=== PATIENT | female | born 1935 | race Caucasian/White ===

== ENCOUNTER → 2017-10-07 | Outpatient (CLI) | payer MEDICARE, BC ==
[2017-10-08 03:52] LABS: Hemoglobin A1C 7.2 % (4.0-6.0)
== END | disposition home or self-care (01) ==
LOC: MMGSC 10:40
PROVIDERS: ATTEND Family Medicine
DX: E11.9 Type 2 diabetes mellitus without complications (principal)
CPT/HCPCS: 82043; 82570; 83036

== ENCOUNTER 2019-12-03 06:13 | Day surgery (SDC) | payer MEDICARE, BC ==
[2019-12-03] MEDS ORDERED: CLINDAMYCIN 600 MG in SODIUM CHLORIDE 0.9% IRRIGATIO 250 ML IRRIGATION ONE (06:18)
[2019-12-03] MEDS ORDERED: CLINDAMYCIN 900 MG in DEXTROSE 5% IN WATER 50 ML IVPB ONE ×2 (06:18)
[2019-12-03] MEDS ORDERED: SODIUM CHLORIDE 0.9% 1,000 ML IV SCH (06:18)
[2019-12-03 07:04] VITALS: RESP 16; TEMP 97.8
[2019-12-03] MEDS ORDERED: SODIUM CHLORIDE 0.9% 1,000 ML IV ONE (07:05)
[2019-12-03] MEDS ORDERED: MIDAZOLAM 2 MG/2 ML VIAL ONE (07:24)
[2019-12-03] MEDS ORDERED: fentaNYL (PF) 50 MCG/ML 2 ML AMP ONE (07:24)
[2019-12-03] MEDS ORDERED: PROPOFOL 10 MG/ML 20 ML VIAL IV ONE (07:24)
[2019-12-03 08:03] LABS: Basophils % (A) 0 %; Eosinophils # (A) 0.1 k/uL (0-0.7); Eosinophils % (A) 1 %; HCT 41.8 % (34.0-46.0); HGB 13.9 gm/dL (11.4-16.0); Lymphocytes # (A) 2.4 k/uL (1.0-4.8); Lymphocytes % (A) 24 %; MCH 30.8 pg (25.0-35.0); MCHC 33.3 g/dL (31.0-37.0); MCV 92.6 fL (80.0-100.0); Mean Platelet Volume 7.5; Monocytes # (A) 0.6 k/uL (0-1.0); Monocytes % (A) 6 %; Neutrophils # (A) 6.5 k/uL (1.3-7.7); Neutrophils % (A) 65 %; Platelet Count 280 k/uL (150-450); RBC 4.51 m/uL (3.80-5.40); RDW 13.2 % (11.5-15.5)
[2019-12-03] MEDS ORDERED: LIDOCAINE 1% INJ 10MG/ML (20 ML MDV) SQ ONE ×2 (08:06→08:14)
[2019-12-03] MEDS ORDERED: ACETAMINOPHEN TAB 325 MG TAB PO PRN (09:10)
[2019-12-03] MEDS ORDERED: ACETAMINOPHEN IV (For NPO) 1,000 MG in EMPTY BAG 1 BAG IVPB ONE (09:10)
--- NOTE | 2019-12-03 09:37 | CE ---
CARDIAC ELECTROPHYSIOLOGY REPORT Jagruti Muse is an 84-year-old female with underlying atrial fibrillation, persistent with a biventricular ICD for cardiomyopathy and heart failure. She was referred for a biventricular ICD generator change since the device is at [facility]. Patient was brought to the EP lab in a fasting state. Written informed consent was obtained prior to the procedure. The left shoulder area was prepped and draped as per protocol and 1% lidocaine was used for local anesthesia. She has an underlying rhythm at 30 beats per minute. Intravenous antibiotics were administered, clindamycin 900 mg. An incision was made directly over the previous surgical site and carried down carefully to the generator. The generator was explanted. The partial capsulectomy was performed. Hemostasis was assured with Aquamantys device. The new generator was implanted. The leads were interrogated and the device was reprogrammed. The old generator that was removed was a [employer] [id number] Protecta XT, serial #[id number]. The new device implanted was Medtronic model number [id number] and serial #[id number]. The P waves were 1 mV. Pacing impedance 451 ohms. Patient was in atrial fibrillation. The RV sensing was at 30 beats a minute. R-waves were 5 mV. Pacing impedance 323 ohms. High-voltage impedance 79 ohms. Pacing threshold 1 V at 0.4 milliseconds. LV pacing impedance was 456 ohms, pacing threshold 1.75 V at 0.4 milliseconds. Prior to the procedure, cinefluoroscopy of the leads was performed and the RV ICD lead was a single coil lead implanted in the low septum, right atrial lead in the right atrial appendage and the LV Medtronic lead in the anterolateral LV vein. No fractures or breaks were noted. MMODL / IJN: [id number] /
--- NOTE | 2019-12-03 09:37 | DS ---
DISCHARGE SUMMARY Jagruti Muse underwent a biventricular ICD generator change. She will be discharged home today if she is hemodynamically stable in about 6 to 8 hours after her second dose of IV clindamycin. She will follow up in the device clinic in 5 days. There will be no changes in her medications and she will see Dr. Milian as previously scheduled. NAOMI / CARMELO: [id number] /
[2019-12-03] MEDS ORDERED: CLINDAMYCIN 900 MG in DEXTROSE 5% IN WATER 50 ML IVPB SCH ×2 (14:00)
[2019-12-03 14:18] VITALS: BP 122/71; PULSE 61
== END 2019-12-03 15:03 | disposition home or self-care (01) ==
LOC: CATHEP 06:13
PROVIDERS: ATTEND Internal Medicine Clinical Cardiac Electrophysiology
DX: Z45.010 Encounter for checking and testing of cardiac pacemaker pulse generator [battery] (principal); I48.19 Other persistent atrial fibrillation; I42.9 Cardiomyopathy, unspecified; I49.3 Ventricular premature depolarization; I11.0 Hypertensive heart disease with heart failure; I50.9 Heart failure, unspecified; E78.2 Mixed hyperlipidemia; E11.39 Type 2 diabetes mellitus with other diabetic ophthalmic complication; H42 Glaucoma in diseases classified elsewhere; Z88.0 Allergy status to penicillin; Z79.01 Long term (current) use of anticoagulants; Z79.899 Other long term (current) drug therapy
CPT/HCPCS: 85025; 33264; J2001; J0131

== ENCOUNTER 2022-06-26 16:39 | Emergency (ER) | payer OTHER ==
--- NOTE | 2022-06-26 17:44 | ED ---
General Adult HPI - General Chief complaint: Recheck/Abnormal Lab/Rx Stated complaint: Possible UTI Time Seen by Provider: 06/26/22 17:03 Source: patient, RN notes reviewed, old records reviewed Mode of arrival: EMS Limitations: no limitations - History of Present Illness Initial comments: 86-year-old female, alert and oriented, presents to the emergency room by EMS from [facility] for altered mental status and possible urinary tract infection. Patient denies any dysuria. Denies any pain or discomfort. No nausea vomiting diarrhea or fevers. States last normal bowel movement was here in the emergency room upon arrival. States did have breakfast and lunch today. Patient does not know why they sent her to the emergency room. Denies any complaints. -: days(s) (1) Severity scale (1-10): 0 Associated Symptoms: denies other symptoms Treatments Prior to Arrival: none - Related Data Home Medications Medication Instructions Recorded Confirmed Atorvastatin [Lipitor] 20 mg PO HS 05/28/14 12/03/19 Metoprolol Succinate [Toprol XL] 25 mg PO DAILY 05/28/14 12/03/19 Spironolactone 12.5 mg PO DAILY 05/28/14 12/03/19 Travoprost [Travatan Z 0.004%] 1 drop BOTH EYES HS 05/28/14 12/03/19 Donepezil [Aricept] 5 mg PO DAILY@1900 11/29/19 12/03/19 Previous Rx's Medication Instructions Recorded Apixaban [Eliquis] 2.5 mg PO BID@0700,1900 #1 tab 06/07/14 Furosemide [Lasix] 40 mg PO DAILY #1 tab 06/07/14 lisinopriL [Zestril] 2.5 mg PO DAILY #30 tab 06/07/14 Cephalexin [Keflex] 500 mg PO BID 7 Days #14 cap 06/26/22 Allergies Allergy/AdvReac Type Severity Reaction Status Date / Time Penicillins Allergy Rash/Hives Verified 06/26/22 16:43 Review of Systems ROS Statement: Those systems with pertinent positive or pertinent negative responses have been documented in the HPI. ROS Other: All systems not noted in ROS Statement are negative. Past Medical History Past Medical History: Atrial Fibrillation, Cancer, Heart Failure, Diabetes Mellitus, Eye Disorder, Hyperlipidemia, Hypertension Additional Past Medical History / Comment(s): GLAUCOMA, DIET CONTROLLED DIABETIC,.ARTHRITIS, HX BREAST CANCER WITH RADIATION (2010), SEE DR CARTY H & P., SHORT TERM MEMORY LOSS., WEARS DEPENDS. History of Any Multi-Drug Resistant Organisms: None Reported Past Surgical History: AICD, Heart Catheterization, Hysterectomy, Pacemaker Additional Past Surgical History / Comment(s): LT CATARACT REMOVED, LUMPECTOMY RT BREAST, THORACENTESIS & PERICARDIAL WINDOW. Past Anesthesia/Blood Transfusion Reactions: No Reported Reaction Type of Cardiac Device: Permanent Pacemaker, AICD Device Placement Date:: 10-08-2013 Past Psychological History: No Psychological Hx Reported Smoking Status: Never smoker Past Alcohol Use History: Daily Past Drug Use History: None Reported - Past Family History Father Additional Family Medical History / Comment(s): IN HIS 70'S FROM A STROKE Mother Family Medical History: CVA/TIA, Diabetes Mellitus Additional Family Medical History / Comment(s): IN HER 80'S STROKE/ COMPICATIONS FROM DIABETES General Exam Limitations: no limitations General appearance: alert, in no apparent distress Head exam: Present: atraumatic, normocephalic Eye exam: Absent: scleral icterus, conjunctival injection ENT exam: Present: mucous membranes moist Neck exam: Present: normal inspection. Absent: tenderness, meningismus, lymphadenopathy Respiratory exam: Present: normal lung sounds bilaterally. Absent: respiratory distress, wheezes, rales, rhonchi, stridor, chest wall tenderness, accessory muscle use Cardiovascular Exam: Present: regular rate GI/Abdominal exam: Present: soft. Absent: distended, tenderness, guarding, rebound, rigid Extremities exam: Present: full ROM, normal capillary refill, pedal edema (Trace bilateral). Absent: tenderness, calf tenderness Back exam: Present: normal inspection. Absent: tenderness, CVA tenderness (R), CVA tenderness (L), paraspinal tenderness, vertebral tenderness, rash noted Neurological exam: Present: alert, oriented X3, normal gait Psychiatric exam: Present: normal affect, normal mood Skin exam: Present: warm, dry, normal color. Absent: cyanosis, diaphoretic, pallor Course Vital Signs 06/26/22 06/26/22 16:42 22:12 Temperature 98 F 97.5 F L Pulse Rate 66 68 Respiratory 20 19 Rate Blood Pressure 149/72 124/77 O2 Sat by Pulse 99 97 Oximetry EKG Findings - MA, Pacemaker, Normal: Pacemaker: ventricular pacing w/capture (except when refractory) (Ventricular rate 71, QRS 0.1 0.2, QTC 0.468) Medical Decision Making - Medical Decision Making Patient was sent by care home for evaluation for possible UTI. Elevated creatinine 1.23 consistent with previous readings of September 10 when it was 1.3. Cloudy urine positive for nitrites, 172 white blood cells, and many bacteria. WBC count 14.1. Patient is afebrile, vital signs are stable. She has no complaints and wants to go home. Patient was given a gram of Rocephin. Discharged home with Keflex. Directed to follow up with primary care doctor on Tuesday. Case discussed with Dr Strickland - Lab Data Result diagrams: 06/26/22 17:38 06/26/22 17:38 Lab Results 06/26/22 06/26/22 06/26/22 Range/Units 17:38 17:38 17:38 WBC 14.1 H (3.8-10.6) k/uL RBC 4.23 (3.80-5.40) m/uL Hgb 13.4 (11.4-16.0) gm/dL Hct 39.7 (34.0-46.0) % MCV 94.0 (80.0-100.0) fL MCH 31.6 (25.0-35.0) pg MCHC 33.7 (31.0-37.0) g/dL RDW 13.6 (11.5-15.5) % Plt Count 306 (150-450) k/uL MPV 7.5 Neutrophils % 68 % Lymphocytes % 22 % Monocytes % 6 % Eosinophils % 1 % Basophils % 1 % Neutrophils # 9.6 H (1.3-7.7) k/uL Lymphocytes # 3.1 (1.0-4.8) k/uL Monocytes # 0.8 (0-1.0) k/uL Eosinophils # 0.1 (0-0.7) k/uL Basophils # 0.1 (0-0.2) k/uL PT 10.0 (9.0-12.0) sec INR 0.9 (<1.2) APTT 22.8 (22.0-30.0) sec Sodium (137-145) mmol/L Potassium (3.5-5.1) mmol/L Chloride (98-107) mmol/L Carbon Dioxide (22-30) mmol/L Anion Gap mmol/L BUN (7-17) mg/dL Creatinine (0.52-1.04) mg/dL Est GFR (CKD-EPI)AfAm (>60 ml/min/1.73 sqM) Est GFR (CKD-EPI)NonAf (>60 ml/min/1.73 sqM) Glucose (74-99) mg/dL Calcium (8.4-10.2) mg/dL Total Bilirubin (0.2-1.3) mg/dL AST (14-36) U/L ALT (4-34) U/L Alkaline Phosphatase (38-126) U/L Troponin I (0.000-0.034) ng/mL Total Protein (6.3-8.2) g/dL Albumin (3.5-5.0) g/dL Urine Color Light Yellow Urine Appearance Cloudy H (Clear) Urine pH 5.5 (5.0-8.0) Ur Specific [place] 1.010 (1.001-1.035) Urine Protein Negative (Negative) Urine Glucose (UA) Negative (Negative) Urine Ketones Negative (Negative) Urine Blood Negative (Negative) Urine Nitrite Positive H (Negative) Urine Bilirubin Negative (Negative) Urine Urobilinogen <2.0 (<2.0) mg/dL Ur Leukocyte Esterase Large H (Negative) Urine RBC 1 (0-5) /hpf Urine WBC 172 H (0-5) /hpf Urine WBC Clumps Moderate H (None) /hpf Ur Squamous Epith Cells <1 (0-4) /hpf Urine Bacteria Many H (None) /hpf Urine Mucus Rare H (None) /hpf 06/26/22 06/26/22 Range/Units 17:38 17:38 WBC (3.8-10.6) k/uL RBC (3.80-5.40) m/uL Hgb (11.4-16.0) gm/dL Hct (34.0-46.0) % MCV (80.0-100.0) fL MCH (25.0-35.0) pg MCHC (31.0-37.0) g/dL RDW (11.5-15.5) % Plt Count (150-450) k/uL MPV Neutrophils % % Lymphocytes % % Monocytes % % Eosinophils % % Basophils % % Neutrophils # (1.3-7.7) k/uL Lymphocytes # (1.0-4.8) k/uL Monocytes # (0-1.0) k/uL Eosinophils # (0-0.7) k/uL Basophils # (0-0.2) k/uL PT (9.0-12.0) sec INR (<1.2) APTT (22.0-30.0) sec Sodium 137 (137-145) mmol/L Potassium 3.5 (3.5-5.1) mmol/L Chloride 99 (98-107) mmol/L Carbon Dioxide 23 (22-30) mmol/L Anion Gap 15 mmol/L BUN 28 H (7-17) mg/dL Creatinine 1.23 H (0.52-1.04) mg/dL Est GFR (CKD-EPI)AfAm 46 (>60 ml/min/1.73 sqM) Est GFR (CKD-EPI)NonAf 40 (>60 ml/min/1.73 sqM) Glucose 116 H (74-99) mg/dL Calcium 8.8 (8.4-10.2) mg/dL Total Bilirubin 0.7 (0.2-1.3) mg/dL AST 33 (14-36) U/L ALT 25 (4-34) U/L Alkaline Phosphatase 87 (38-126) U/L Troponin I 0.021 (0.000-0.034) ng/mL Total Protein 6.6 (6.3-8.2) g/dL Albumin 3.7 (3.5-5.0) g/dL Urine Color Urine Appearance (Clear) Urine pH (5.0-8.0) Ur Specific [place] (1.001-1.035) Urine Protein (Negative) Urine Glucose (UA) (Negative) Urine Ketones (Negative) Urine Blood (Negative) Urine Nitrite (Negative) Urine Bilirubin (Negative) Urine Urobilinogen (<2.0) mg/dL Ur Leukocyte Esterase (Negative) Urine RBC (0-5) /hpf Urine WBC (0-5) /hpf Urine WBC Clumps (None) /hpf Ur Squamous Epith Cells (0-4) /hpf Urine Bacteria (None) /hpf Urine Mucus (None) /hpf Disposition Clinical Impression: UTI (urinary tract infection) Disposition: HOME SELF-CARE Condition: Good Instructions (If sedation given, give patient instructions): Urinary Tract Infection in Women (ED) Additional Instructions: Take antibiotics as prescribed. Increase your fluid intake. Follow-up with the primary care doctor on Tuesday and return to the emergency room with any new or concerning symptoms including fevers, back pain, or persistent nausea and vomiting. Prescriptions: Cephalexin [Keflex] 500 mg PO BID 7 Days #14 cap Is patient prescribed a controlled substance at d/c from ED?: No Referrals: None,Stated [Primary Care Provider] - 1-2 days Time of Disposition: 20:18
[2022-06-26 17:49] LABS: Basophils # (A) 0.1 k/uL (0-0.2); Basophils % (A) 1 %; Eosinophils # (A) 0.1 k/uL (0-0.7); Eosinophils % (A) 1 %; HCT 39.7 % (34.0-46.0); HGB 13.4 gm/dL (11.4-16.0); Lymphocytes # (A) 3.1 k/uL (1.0-4.8); Lymphocytes % (A) 22 %; MCH 31.6 pg (25.0-35.0); MCHC 33.7 g/dL (31.0-37.0); Mean Platelet Volume 7.5; Monocytes # (A) 0.8 k/uL (0-1.0); Monocytes % (A) 6 %; Neutrophils # (A) 9.6 k/uL (1.3-7.7); Neutrophils % (A) 68 %; Platelet Count 306 k/uL (150-450); RBC 4.23 m/uL (3.80-5.40); RDW 13.6 % (11.5-15.5); WBC 14.1 k/uL (3.8-10.6)
[2022-06-26 17:55] LABS: INR 0.9 (<1.2); Partial Thromboplastin Time 22.8 sec (22.0-30.0)
--- NOTE | 2022-06-26 17:57 | XR ---
EXAMINATION TYPE: XR chest 2V DATE OF EXAM: 06/26/2022 COMPARISON: 06/07/2014 HISTORY: Altered mental status TECHNIQUE: 2 views FINDINGS: Heart is enlarged. No heart failure. There is left axillary pacemaker. No pleural effusion. Bony thorax is intact. IMPRESSION: Moderate cardiomegaly. There is clearing of the pleural fluid and heart failure compared to old exams
[2022-06-26 17:59] LABS: Albumin 3.7 g/dL (3.5-5.0); Calcium 8.8 mg/dL (8.4-10.2); Potassium 3.5 mmol/L (3.5-5.1); Total Bilirubin 0.7 mg/dL (0.2-1.3); Total Protein 6.6 g/dL (6.3-8.2)
[2022-06-26 19:40] LABS: Appearance,Urine Cloudy (Clear); Bacteria,Urine Many /hpf; Bilirubin,Urine Negative (Negative); Blood,Urine Negative (Negative); Color,Urine Light Yellow; Glucose,Urine (UA) Negative (Negative); Ketones,Urine Negative (Negative); Leukocyte Esterase,Urine Large (Negative); Mucus,Urine Rare /hpf; Nitrite,Urine Positive (Negative); PH, Urine 5.5 (5.0-8.0); Protein,Urine Negative (Negative); RBC,Urine 1 /hpf (0-5); Squamous Epithelial Cell,Urine <1 /hpf (0-4); Urobilinogen,Urine <2.0 mg/dL (<2.0); WBC,Urine 172 /hpf (0-5)
[2022-06-26] MEDS ORDERED: cefTRIAXone IN SWFI 1,000 MG/10 ML SYRINGE IVP STA (20:10)
[2022-06-26 22:13] VITALS: BP 124/77; PULSE 68; RESP 19; TEMP 97.5
== END 2022-06-26 22:00 | disposition home or self-care (01) ==
LOC: EC 16:39
DX: N39.0 Urinary tract infection, site not specified (principal); I48.91 Unspecified atrial fibrillation; E11.9 Type 2 diabetes mellitus without complications; I10 Essential (primary) hypertension; E78.5 Hyperlipidemia, unspecified; Z88.0 Allergy status to penicillin; Z79.899 Other long term (current) drug therapy; Z79.83 Long term (current) use of bisphosphonates
CPT/HCPCS: 36415; 93005; 80053; 84484; 85025; 85610; 85730; 81001; 87086; 71046; 99285; 96374; J0696; 87077; 87186

== ENCOUNTER 2022-08-12 12:20 | Observation (INO) | payer OTHER ==
[2022-08-12 12:33] VITALS: TEMP 97.8
[2022-08-12] MEDS ORDERED: SODIUM CHLORIDE 0.9% 500 ML 500 ML IV STA (12:42)
[2022-08-12 13:09] LABS: Basophils # (A) 0.1 k/uL (0-0.2); Basophils % (A) 1 %; Eosinophils % (A) 0 %; HCT 40.7 % (34.0-46.0); HGB 13.5 gm/dL (11.4-16.0); Lymphocytes # (A) 0.9 k/uL (1.0-4.8); Lymphocytes % (A) 10 %; MCH 31.1 pg (25.0-35.0); MCV 94.1 fL (80.0-100.0); Mean Platelet Volume 7.3; Monocytes # (A) 0.6 k/uL (0-1.0); Monocytes % (A) 7 %; Neutrophils # (A) 7.4 k/uL (1.3-7.7); Neutrophils % (A) 80 %; Platelet Count 260 k/uL (150-450); RBC 4.33 m/uL (3.80-5.40); RDW 13.3 % (11.5-15.5); WBC 9.2 k/uL (3.8-10.6)
--- NOTE | 2022-08-12 13:14 | XR ---
EXAMINATION TYPE: XR chest 2V DATE OF EXAM: 08/12/2022 COMPARISON: 06/26/2022 TECHNIQUE: PA and lateral views submitted. HISTORY: Cough FINDINGS: The lungs are clear and there is no pneumothorax, pleural effusion, or focal pneumonia. Heart is en larged and there is a cardiac device. Atherosclerotic changes aorta. Arthropathy of the shoulders. Pr ominence of right paratracheal stripe stable. Hypertrophic degenerative change of the spine. IMPRESSION: 1. No acute process. There is prominence of the right paratracheal stripe which could be associated w ith enlarged thyroid or adenopathy. However, this is stable dating back to prior exam of 06/06/2014 an d likely is related to curvature of the spine and superimposed structures.
[2022-08-12 13:23] LABS: Albumin 3.7 g/dL (3.5-5.0); Calcium 8.7 mg/dL (8.4-10.2); Magnesium 1.7 mg/dL (1.6-2.3); Partial Thromboplastin Time 24.3 sec (22.0-30.0); Potassium 3.5 mmol/L (3.5-5.1); Prothrombin Time 10.3 sec (9.0-12.0); Total Bilirubin 0.5 mg/dL (0.2-1.3); Total Protein 6.7 g/dL (6.3-8.2)
--- NOTE | 2022-08-12 14:00 | ED ---
General Adult HPI - General Chief complaint: Shortness of Breath Stated complaint: elle Time Seen by Provider: 08/12/22 12:40 Source: patient, EMS, RN notes reviewed, old records reviewed Mode of arrival: EMS Limitations: no limitations - History of Present Illness Initial comments: This is an 86-year-old female presents emergency Department complaining of cough and shortness of breath since yesterday. Patient lives in assisted living facility and someone took pulse oxing thought it was low decided to send the emergency department. Patient has had a COVID vaccine patient also has had influenza vaccine. Patient states she has not had any fever chills. Patient denies any chest pain or palpitations. Patient denies any headache patient denies numbness weakness. Patient denies abdominal pain patient denies nausea vomiting diarrhea. Patient's only complaint is cough and shortness of breath. Patient denies any swelling to the legs or calf tenderness. Has a distant history of having congestive heart failure. - Related Data Home Medications Medication Instructions Recorded Confirmed Metoprolol Succinate [Toprol XL] 25 mg PO DAILY 05/28/14 08/12/22 Donepezil [Aricept] 5 mg PO DAILY 11/29/19 08/12/22 Apixaban [Eliquis] 2.5 mg PO BID 08/12/22 08/12/22 Bismuth Subsalicylate 262 mg PO QID PRN 08/12/22 08/12/22 [Pepto-Bismol] Glimepiride [Amaryl] 2 mg PO AC-BRKFST 08/12/22 08/12/22 Sulfamethoxazole/Trimethoprim 1 tab PO BID 08/12/22 08/12/22 [Bactrim DS 800-160 mg] Previous Rx's Medication Instructions Recorded Furosemide [Lasix] 40 mg PO DAILY #1 tab 06/07/14 lisinopriL [Zestril] 2.5 mg PO DAILY #30 tab 06/07/14 Allergies Allergy/AdvReac Type Severity Reaction Status Date / Time Penicillins Allergy Rash/Hives Verified 08/12/22 15:12 Review of Systems ROS Statement: Those systems with pertinent positive or pertinent negative responses have been documented in the HPI. ROS Other: All systems not noted in ROS Statement are negative. Past Medical History Past Medical History: Atrial Fibrillation, Cancer, Heart Failure, Diabetes Mellitus, Eye Disorder, Hyperlipidemia, Hypertension Additional Past Medical History / Comment(s): GLAUCOMA, DIET CONTROLLED DIABETIC,.ARTHRITIS, HX BREAST CANCER WITH RADIATION (2010), SEE DR CARTY H & P., SHORT TERM MEMORY LOSS., WEARS DEPENDS. History of Any Multi-Drug Resistant Organisms: None Reported Past Surgical History: AICD, Heart Catheterization, Hysterectomy, Pacemaker Additional Past Surgical History / Comment(s): LT CATARACT REMOVED, LUMPECTOMY RT BREAST, THORACENTESIS & PERICARDIAL WINDOW. Past Anesthesia/Blood Transfusion Reactions: No Reported Reaction Type of Cardiac Device: Permanent Pacemaker, AICD Device Placement Date:: 10-08-2013 Past Psychological History: No Psychological Hx Reported Smoking Status: Never smoker Past Alcohol Use History: Daily Past Drug Use History: None Reported - Past Family History Father Additional Family Medical History / Comment(s): IN HIS 70'S FROM A STROKE Mother Family Medical History: CVA/TIA, Diabetes Mellitus Additional Family Medical History / Comment(s): IN HER 80'S STROKE/ COMPICATIONS FROM DIABETES General Exam - General Exam Comments Initial Comments: GENERAL: Patient is well-developed and well-nourished. Patient is nontoxic and well- hydrated and is in mild distress. ENT: Neck is soft and supple. No significant lymphadenopathy is noted. Oropharynx is clear. Moist mucous membranes. Neck has full range of motion without eliciting any pain. EYES: The sclera were anicteric and conjunctiva were pink and moist. Extraocular movements were intact and pupils were equal round and reactive to light. Eyelids were unremarkable. PULMONARY: Patient has some expiratory wheezing throughout and some crackles in the bases CARDIOVASCULAR: There is a regular rate and rhythm without any murmurs gallops or rubs. ABDOMEN: Soft and nontender with normal bowel sounds. SKIN: Skin is clear with no lesions or rashes and otherwise unremarkable. NEUROLOGIC: Patient is alert and oriented x3. Cranial nerves II through XII are grossly intact. Motor and sensory are also intact. Normal speech, volume and content. Symmetrical smile. MUSCULOSKELETAL: Normal extremities with adequate strength and full range of motion. LYMPHATICS: No significant lymphadenopathy is noted PSYCHIATRIC: Normal psychiatric evaluation. Limitations: no limitations Course Vital Signs 08/12/22 08/12/22 08/12/22 12:27 14:16 16:05 Temperature 97.8 F Pulse Rate 80 93 Respiratory 28 H 24 24 Rate Blood Pressure 125/95 129/90 O2 Sat by Pulse 94 L 94 L 92 L Oximetry 08/12/22 08/12/22 08/12/22 16:17 16:41 16:50 Temperature Pulse Rate 76 74 Respiratory Rate Blood Pressure O2 Sat by Pulse 89 L Oximetry Medical Decision Making - Medical Decision Making EKG was interpreted by me. EKG shows a paced rhythm at 77 bpm SC interval is not present because of the paced rhythm. QRS is 131 Q-T intervals 438 QTC is 470. Patient's EKG shows no ST segment elevation or depression I interpret the chest x-ray chest x-ray showed no acute abnormality. Patient continued to cough patient had bronchospasms patient received a breathing treatments steroids in the emergency department and still was satting 89-90% on room air. Family was uncomfortable with the patient on home and I spoke with Dr. Mendoza he agreed to admit the patient to the patient wrote admitting orders. - Lab Data Result diagrams: 08/12/22 12:46 08/12/22 12:46 Lab Results 08/12/22 08/12/22 08/12/22 Range/Units 12:46 12:46 12:46 WBC 9.2 (3.8-10.6) k/uL RBC 4.33 (3.80-5.40) m/uL Hgb 13.5 (11.4-16.0) gm/dL Hct 40.7 (34.0-46.0) % MCV 94.1 (80.0-100.0) fL MCH 31.1 (25.0-35.0) pg MCHC 33.0 (31.0-37.0) g/dL RDW 13.3 (11.5-15.5) % Plt Count 260 (150-450) k/uL MPV 7.3 Neutrophils % 80 % Lymphocytes % 10 % Monocytes % 7 % Eosinophils % 0 % Basophils % 1 % Neutrophils # 7.4 (1.3-7.7) k/uL Lymphocytes # 0.9 L (1.0-4.8) k/uL Monocytes # 0.6 (0-1.0) k/uL Eosinophils # 0.0 (0-0.7) k/uL Basophils # 0.1 (0-0.2) k/uL PT 10.3 (9.0-12.0) sec INR 1.0 (<1.2) APTT 24.3 (22.0-30.0) sec Sodium (137-145) mmol/L Potassium (3.5-5.1) mmol/L Chloride (98-107) mmol/L Carbon Dioxide (22-30) mmol/L Anion Gap mmol/L BUN (7-17) mg/dL Creatinine (0.52-1.04) mg/dL Est GFR (CKD-EPI)AfAm (>60 ml/min/1.73 sqM) Est GFR (CKD-EPI)NonAf (>60 ml/min/1.73 sqM) Glucose (74-99) mg/dL Lactic Ac Sepsis Rflx Plasma Lactic Acid Thee (0.7-2.0) mmol/L Calcium (8.4-10.2) mg/dL Magnesium (1.6-2.3) mg/dL Total Bilirubin (0.2-1.3) mg/dL AST (14-36) U/L ALT (4-34) U/L Alkaline Phosphatase (38-126) U/L Troponin I (0.000-0.034) ng/mL NT-Pro-B Natriuret Pep pg/mL Total Protein (6.3-8.2) g/dL Albumin (3.5-5.0) g/dL Urine Color Light Yellow Urine Appearance Clear (Clear) Urine pH 5.0 (5.0-8.0) Ur Specific [place] 1.011 (1.001-1.035) Urine Protein Negative (Negative) Urine Glucose (UA) Trace H (Negative) Urine Ketones Negative (Negative) Urine Blood Negative (Negative) Urine Nitrite Negative (Negative) Urine Bilirubin Negative (Negative) Urine Urobilinogen <2.0 (<2.0) mg/dL Ur Leukocyte Esterase Negative (Negative) Coronavirus (PCR) (Not Detectd) 08/12/22 08/12/22 08/12/22 Range/Units 12:46 12:46 12:46 WBC (3.8-10.6) k/uL RBC (3.80-5.40) m/uL Hgb (11.4-16.0) gm/dL Hct (34.0-46.0) % MCV (80.0-100.0) fL MCH (25.0-35.0) pg MCHC (31.0-37.0) g/dL RDW (11.5-15.5) % Plt Count (150-450) k/uL MPV Neutrophils % % Lymphocytes % % Monocytes % % Eosinophils % % Basophils % % Neutrophils # (1.3-7.7) k/uL Lymphocytes # (1.0-4.8) k/uL Monocytes # (0-1.0) k/uL Eosinophils # (0-0.7) k/uL Basophils # (0-0.2) k/uL PT (9.0-12.0) sec INR (<1.2) APTT (22.0-30.0) sec Sodium 138 (137-145) mmol/L Potassium 3.5 (3.5-5.1) mmol/L Chloride 101 (98-107) mmol/L Carbon Dioxide 29 (22-30) mmol/L Anion Gap 8 mmol/L BUN 19 H (7-17) mg/dL Creatinine 1.29 H (0.52-1.04) mg/dL Est GFR (CKD-EPI)AfAm 43 (>60 ml/min/1.73 sqM) Est GFR (CKD-EPI)NonAf 38 (>60 ml/min/1.73 sqM) Glucose 218 H (74-99) mg/dL Lactic Ac Sepsis Rflx Plasma Lactic Acid Thee 2.5 H* (0.7-2.0) mmol/L Calcium 8.7 (8.4-10.2) mg/dL Magnesium 1.7 (1.6-2.3) mg/dL Total Bilirubin 0.5 (0.2-1.3) mg/dL AST 24 (14-36) U/L ALT 16 (4-34) U/L Alkaline Phosphatase 98 (38-126) U/L Troponin I 0.028 (0.000-0.034) ng/mL NT-Pro-B Natriuret Pep pg/mL Total Protein 6.7 (6.3-8.2) g/dL Albumin 3.7 (3.5-5.0) g/dL Urine Color Urine Appearance (Clear) Urine pH (5.0-8.0) Ur Specific [place] (1.001-1.035) Urine Protein (Negative) Urine Glucose (UA) (Negative) Urine Ketones (Negative) Urine Blood (Negative) Urine Nitrite (Negative) Urine Bilirubin (Negative) Urine Urobilinogen (<2.0) mg/dL Ur Leukocyte Esterase (Negative) Coronavirus (PCR) (Not Detectd) 08/12/22 08/12/22 08/12/22 Range/Units 12:46 13:01 14:15 WBC (3.8-10.6) k/uL RBC (3.80-5.40) m/uL Hgb (11.4-16.0) gm/dL Hct (34.0-46.0) % MCV (80.0-100.0) fL MCH (25.0-35.0) pg MCHC (31.0-37.0) g/dL RDW (11.5-15.5) % Plt Count (150-450) k/uL MPV Neutrophils % % Lymphocytes % % Monocytes % % Eosinophils % % Basophils % % Neutrophils # (1.3-7.7) k/uL Lymphocytes # (1.0-4.8) k/uL Monocytes # (0-1.0) k/uL Eosinophils # (0-0.7) k/uL Basophils # (0-0.2) k/uL PT (9.0-12.0) sec INR (<1.2) APTT (22.0-30.0) sec Sodium (137-145) mmol/L Potassium (3.5-5.1) mmol/L Chloride (98-107) mmol/L Carbon Dioxide (22-30) mmol/L Anion Gap mmol/L BUN (7-17) mg/dL Creatinine (0.52-1.04) mg/dL Est GFR (CKD-EPI)AfAm (>60 ml/min/1.73 sqM) Est GFR (CKD-EPI)NonAf (>60 ml/min/1.73 sqM) Glucose (74-99) mg/dL Lactic Ac Sepsis Rflx Y Plasma Lactic Acid Thee (0.7-2.0) mmol/L Calcium (8.4-10.2) mg/dL Magnesium (1.6-2.3) mg/dL Total Bilirubin (0.2-1.3) mg/dL AST (14-36) U/L ALT (4-34) U/L Alkaline Phosphatase (38-126) U/L Troponin I (0.000-0.034) ng/mL NT-Pro-B Natriuret Pep 1990 pg/mL Total Protein (6.3-8.2) g/dL Albumin (3.5-5.0) g/dL Urine Color Urine Appearance (Clear) Urine pH (5.0-8.0) Ur Specific [place] (1.001-1.035) Urine Protein (Negative) Urine Glucose (UA) (Negative) Urine Ketones (Negative) Urine Blood (Negative) Urine Nitrite (Negative) Urine Bilirubin (Negative) Urine Urobilinogen (<2.0) mg/dL Ur Leukocyte Esterase (Negative) Coronavirus (PCR) Not Detected (Not Detectd) 08/12/22 Range/Units 16:43 WBC (3.8-10.6) k/uL RBC (3.80-5.40) m/uL Hgb (11.4-16.0) gm/dL Hct (34.0-46.0) % MCV (80.0-100.0) fL MCH (25.0-35.0) pg MCHC (31.0-37.0) g/dL RDW (11.5-15.5) % Plt Count (150-450) k/uL MPV Neutrophils % % Lymphocytes % % Monocytes % % Eosinophils % % Basophils % % Neutrophils # (1.3-7.7) k/uL Lymphocytes # (1.0-4.8) k/uL Monocytes # (0-1.0) k/uL Eosinophils # (0-0.7) k/uL Basophils # (0-0.2) k/uL PT (9.0-12.0) sec INR (<1.2) APTT (22.0-30.0) sec Sodium (137-145) mmol/L Potassium (3.5-5.1) mmol/L Chloride (98-107) mmol/L Carbon Dioxide (22-30) mmol/L Anion Gap mmol/L BUN (7-17) mg/dL Creatinine (0.52-1.04) mg/dL Est GFR (CKD-EPI)AfAm (>60 ml/min/1.73 sqM) Est GFR (CKD-EPI)NonAf (>60 ml/min/1.73 sqM) Glucose (74-99) mg/dL Lactic Ac Sepsis Rflx Plasma Lactic Acid Thee 1.9 (0.7-2.0) mmol/L Calcium (8.4-10.2) mg/dL Magnesium (1.6-2.3) mg/dL Total Bilirubin (0.2-1.3) mg/dL AST (14-36) U/L ALT (4-34) U/L Alkaline Phosphatase (38-126) U/L Troponin I (0.000-0.034) ng/mL NT-Pro-B Natriuret Pep pg/mL Total Protein (6.3-8.2) g/dL Albumin (3.5-5.0) g/dL Urine Color Urine Appearance (Clear) Urine pH (5.0-8.0) Ur Specific [place] (1.001-1.035) Urine Protein (Negative) Urine Glucose (UA) (Negative) Urine Ketones (Negative) Urine Blood (Negative) Urine Nitrite (Negative) Urine Bilirubin (Negative) Urine Urobilinogen (<2.0) mg/dL Ur Leukocyte Esterase (Negative) Coronavirus (PCR) (Not Detectd) Disposition Clinical Impression: Bronchitis with bronchospasm, Hypoxia Disposition: ADMITTED IP TO THIS HOSP Referrals: None,Stated [REFERRING] - 1-2 days Time of Disposition: 17:17
[2022-08-12 14:28] LABS: Appearance,Urine Clear (Clear); Bilirubin,Urine Negative (Negative); Blood,Urine Negative (Negative); Color,Urine Light Yellow; Glucose,Urine (UA) Trace (Negative); Ketones,Urine Negative (Negative); Leukocyte Esterase,Urine Negative (Negative); Nitrite,Urine Negative (Negative); Protein,Urine Negative (Negative); Specific Gravity,Urine 1.011 (1.001-1.035); Urobilinogen,Urine <2.0 mg/dL (<2.0)
[2022-08-12] MEDS ORDERED: methylPREDNISolone SOD SUCCI 125 MG/2 ML VIAL IV STA (16:17)
[2022-08-12] MEDS ORDERED: IPRATROPIUM-ALBUTEROL 3 ML NEB INHALATION STA (16:17)
[2022-08-12] MEDS ORDERED: cefTRIAXone IN SWFI 1,000 MG/10 ML SYRINGE IVP STA (17:07)
[2022-08-12] MEDS ORDERED: IPRATROPIUM-ALBUTEROL 3 ML NEB INHALATION PRN (17:19)
[2022-08-12] MEDS ORDERED: AZITHROMYCIN 500 MG in SODIUM CHLORIDE 0.9% 250 ML IVPB STA (17:19)
--- NOTE | 2022-08-12 18:12 | P.HPIM ---
History of Present Illness H&P Date: 08/12/22 Chief Complaint: cough, dyspnea 86-year-old woman with medical history of hypertension, permanent atrial fibrillation, significant secondhand smoke exposure, chronic kidney disease stage III, diabetes type 2, advanced dementia presented with cough, dyspnea. Patient is a poor historian due to her dementia, history is obtained from chart review, ER provider signout, discussion with patient's daughter over the phone. From my understanding, patient was presenting in her assisted living facility and has been getting increasingly weak and had had multiple falls in the last several days without traumatic injury, and the last day she started to develop cough, dyspnea with low oxygen saturations, prompting staff at the assisted living facility to send her to the emergency room for further evaluation. Patient's review of systems is unreliable, however, she denies fevers, chills, nausea, vomiting, chest pain, palpitations, syncope, presyncope, cough, dyspnea, abdominal pain, constipation, diarrhea, dysuria, dyschezia, numbness/weakness of extremities. In the emergency room, patient was afebrile, 129/90, 89% on room air, heart rate 93. CBC was unremarkable. Chemistries show BUNs of 19, creatinine of 1.3 which is her baseline. Glucose was elevated at 218. Lactic acid was 2.5. BNP was 1990. Liver function tests are unremarkable. UA showed trace glucose, ot herwise unremarkable. Covid was negative. Lactic acid improved to 1.9. EKG shows an electronic the jugular pacemaker at a rate of 77. Chest x-ray does appear to have cardiomegaly with increased pulmonary vascularity. All Systems reviewed and pertinent positives and negatives noted in HPI, all o ther symptoms are negative Gen: in no apparent distress, resting comfortably in bed Eyes: PERRL, no scleral injection or icterus HENT: normocephalic, atraumatic, good hearing acuity, moist mucous membranes Neck: no tracheal deviation, full range of motion Resp: Impaired air exchange, breathing comfortably with no accessory muscle use, no tactile fremitus, diffuse wheezing CVS: good distal perfusion x 4, no pitting edema, regular rate and rhythm GI: soft, NTTP, ND, no hepatosplenomegaly : no suprapubic tenderness, no CVAT, mena catheter not present MSK: no clubbing, no cyanosis, no noted contractures of extremities Skin: no noted rashes, petechiae; temperature of skin is appropriate Neuro: moving all extremities without signs of weakness, CN II-XII intact Psych: cooperative, euthymic mood, insight and judgment impaired Labs and imaging as above Assessment/plan: Acute hypoxemic respiratory failure Reactive airway disease, suspected to be secondary to COPD from secondhand smoke exposure -Admit to observation, telemetry -DuoNeb's -Steroids -Antibiotics -Oxygen as needed -Peak flows -influenza A/B, RSV to rule out viral bronchospastic disease Uncontrolled diabetes type 2 -Insulin sliding scale -A1c Chronic systolic heart failure, ejection fraction 35% Permanent atrial fibrillation, rate controlled Chronic kidney disease, stage III Advanced dementia Hypertension -Home medications reviewed and reconciled Patient is a no code Daughter is [employer] DVT prophylaxis covered with [employer] Past Medical History Past Medical History: Atrial Fibrillation, Cancer, Heart Failure, Diabetes Mellitus, Eye Disorder, Hyperlipidemia, Hypertension Additional Past Medical History / Comment(s): GLAUCOMA, DIET CONTROLLED DIABETIC,.ARTHRITIS, HX BREAST CANCER WITH RADIATION (2010), SEE DR CARTY H & P., SHORT TERM MEMORY LOSS., WEARS DEPENDS. History of Any Multi-Drug Resistant Organisms: None Reported Past Surgical History: AICD, Heart Catheterization, Hysterectomy, Pacemaker Additional Past Surgical History / Comment(s): LT CATARACT REMOVED, LUMPECTOMY RT BREAST, THORACENTESIS & PERICARDIAL WINDOW. Past Anesthesia/Blood Transfusion Reactions: No Reported Reaction Type of Cardiac Device: Permanent Pacemaker, AICD Device Placement Date:: 10-08-2013 Past Psychological History: No Psychological Hx Reported Smoking Status: Never smoker Past Alcohol Use History: Daily Past Drug Use History: None Reported - Past Family History Father Additional Family Medical History / Comment(s): IN HIS 70'S FROM A STROKE Mother Family Medical History: CVA/TIA, Diabetes Mellitus Additional Family Medical History / Comment(s): IN HER 80'S STROKE/ COMPICATIONS FROM DIABETES Medications and Allergies Home Medications Medication Instructions Recorded Confirmed Type Metoprolol Succinate [Toprol XL] 25 mg PO DAILY 05/28/14 08/12/22 History Furosemide [Lasix] 40 mg PO DAILY #1 tab 06/07/14 08/12/22 Rx lisinopriL [Zestril] 2.5 mg PO DAILY #30 tab 06/07/14 08/12/22 Rx Donepezil [Aricept] 5 mg PO DAILY 11/29/19 08/12/22 History Apixaban [Eliquis] 2.5 mg PO BID 08/12/22 08/12/22 History Bismuth Subsalicylate 262 mg PO QID PRN 08/12/22 08/12/22 History [Pepto-Bismol] Glimepiride [Amaryl] 2 mg PO AC-BRKFST 08/12/22 08/12/22 History Sulfamethoxazole/Trimethoprim 1 tab PO BID 08/12/22 08/12/22 History [Bactrim DS 800-160 mg] Allergies Allergy/AdvReac Type Severity Reaction Status Date / Time Penicillins Allergy Rash/Hives Verified 08/12/22 15:12 Physical Exam Osteopathic Statement: *. No significant issues noted on an osteopathic structural exam other than those noted in the History and Physical/Consult. Vitals: Vital Signs Temp Pulse Resp BP Pulse Ox 08/12/22 16:50 74 08/12/22 16:41 76 08/12/22 16:17 89 L 08/12/22 16:05 93 24 129/90 92 L 08/12/22 14:16 24 94 L 08/12/22 12:27 97.8 F 80 28 H 125/95 94 L Intake and Output 08/12/22 08/12/22 08/12/22 06:59 14:59 22:59 Other: Weight 66.224 kg Results CBC & Chem 7: 08/12/22 12:46 08/12/22 12:46 Labs: Abnormal Lab Results - Last 24 Hours (Table) 08/12/22 08/12/22 08/12/22 Range/Units 12:46 12:46 12:46 Lymphocytes # 0.9 L (1.0-4.8) k/uL BUN 19 H (7-17) mg/dL Creatinine 1.29 H (0.52-1.04) mg/dL Glucose 218 H (74-99) mg/dL Plasma Lactic Acid Thee (0.7-2.0) mmol/L Urine Glucose (UA) Trace H (Negative) 08/12/22 Range/Units 12:46 Lymphocytes # (1.0-4.8) k/uL BUN (7-17) mg/dL Creatinine (0.52-1.04) mg/dL Glucose (74-99) mg/dL Plasma Lactic Acid Thee 2.5 H* (0.7-2.0) mmol/L Urine Glucose (UA) (Negative)
[2022-08-12] MEDS: IPRATROPIUM-ALBUTEROL 3 ML NEB INHALATION SCH ×2 (19:32→23:12)
[2022-08-12] MEDS: APIXABAN 2.5 MG TABLET PO SCH (20:52)
[2022-08-12] MEDS: methylPREDNISolone SOD SUCCI 125 MG/2 ML VIAL IV SCH (23:11)
[2022-08-13] MEDS: IPRATROPIUM-ALBUTEROL 3 ML NEB INHALATION SCH ×2 (03:30→08:20)
[2022-08-13] MEDS: methylPREDNISolone SOD SUCCI 125 MG/2 ML VIAL IV SCH (06:03)
[2022-08-13] MEDS ORDERED: INSULIN ASPART (NovoLOG) 100 UNIT/ML VIAL SQ SCH (07:30)
[2022-08-13 08:30] LABS: Glucose,Whole Blood 221 mg/dL (70-110)
[2022-08-13 08:54] LABS: Basophils # (A) 0.02 X 10*3/uL (0.00-0.10); Basophils % (A) 0.2 %; Eosinophils # (A) 0 X 10*3/uL (0.04-0.35); Eosinophils % (A) 0 %; HCT 40.1 % (37.2-46.3); HGB 12.7 g/dL (12.0-15.0); Immature Grans, Automated 0.6 %; Lymphocytes # (A) 0.94 X 10*3/uL (0.90-5.00); Lymphocytes % (A) 8.9 %; MCH 30.6 pg (27.0-32.0); MCHC 31.7 g/dL (32.0-37.0); MCV 96.6 fL (80.0-97.0); Mean Platelet Volume 11.1 fL (9.5-12.2); Monocytes # (A) 0.25 X 10*3/uL (0.20-1.00); Monocytes % (A) 2.4 %; NRBC Per 100 WBC 0 /100 WBCS (0.0-0.0); Neutrophils # (A) 9.24 X 10*3/uL (1.80-7.70); Neutrophils % (A) 87.9 %; Platelet Count 204 X 10*3/uL (140-440); RBC 4.15 X 10*6/uL (4.10-5.20); RDW 13.7 % (11.5-14.5); WBC 10.51 X 10*3/uL (4.50-10.00)
[2022-08-13] MEDS: APIXABAN 2.5 MG TABLET PO SCH (08:54)
[2022-08-13] MEDS ORDERED: DONEPEZIL 5 MG TAB PO SCH (09:00)
[2022-08-13] MEDS ORDERED: FUROSEMIDE 40 MG TAB PO SCH (09:00)
[2022-08-13] MEDS ORDERED: AZITHROMYCIN 500 MG TAB PO SCH (09:00)
[2022-08-13] MEDS ORDERED: METOPROLOL SUCCINATE (ER) 25 MG TAB.ER.24H PO SCH (09:00)
[2022-08-13 09:26] LABS: Anion Gap 15.1 mmol/L (10.00-18.00); BUN/Creat Ratio 16.88 Ratio (12.00-20.00); Blood Urea Nitrogen 23.3 mg/dL (9.0-27.0); Calcium 9.2 mg/dL (8.7-10.3); Carbon Dioxide 23.7 mmol/L (20.0-27.5); Magnesium 2.2 mg/dL (1.5-2.4); Non-African American GFR(CKD) 34.5 (60.0-200.0); Potassium 4.1 mmol/L (3.5-5.5)
--- NOTE | 2022-08-13 09:26 | XR ---
EXAMINATION TYPE: XR chest 1V portable DATE OF EXAM: 08/13/2022 COMPARISON: 08/12/2022 HISTORY: Follow-up pneumonia TECHNIQUE: Single frontal view of the chest is obtained. FINDINGS: Cardia mainly cardiac device seen. Limited inspiration. Arthropathy of the shoulders with no pneumothorax. Persistent prominence of the right hilum. IMPRESSION: 1. Right hilar soft tissue prominence may related to superimposed structures given rotation patient. 2. No focal pneumonia.
[2022-08-13 11:18] VITALS: BP 113/74; PULSE 82; RESP 16
--- NOTE | 2022-08-13 13:27 | P.DS ---
Providers Date of admission: 08/12/22 17:20 Expected date of discharge: 08/13/22 Attending physician: Shirley Mendoza MD Primary care physician: Physician Nonstaff Hospital Course: Acute hypoxemic respiratory failure Reactive airway disease, suspected to be secondary to RSV with possible superimposed COPD from secondhand smoke exposure Uncontrolled diabetes type 2 Chronic systolic heart failure, ejection fraction 35% Permanent atrial fibrillation, rate controlled Chronic kidney disease, stage III Advanced dementia Hypertension 86-year-old woman with medical history of hypertension, permanent atrial fib rillation, significant secondhand smoke exposure, chronic kidney disease stage III, diabetes type 2, advanced dementia presented with cough, dyspnea. In the emergency room, patient was afebrile, 129/90, 89% on room air, heart rate 93. CBC was unremarkable. Chemistries show BUNs of 19, creatinine of 1.3 which is her baseline. Glucose was elevated at 218. Lactic acid was 2.5. BNP was 1990. Liver function tests are unremarkable. UA showed trace glucose, otherwise unremarkable. Covid was negative. Lactic acid improved to 1.9. EKG shows an electronic the jugular pacemaker at a rate of 77. Chest x-ray does appear to have cardiomegaly with increased pulmonary vascularity. Patient was admitted to observation, started on duo nebs, steroids, antibiotics. She was tested for influenza A, B, RSV to rule out viral bronchospastic disease and was found to be positive for RSV with known infection in her assisted living facility. On discharge, discussed her case with her primary care physician on the phone, including all medication changes, hospital course. Patient will be given 3 days of prednisone, 2 days of azithromycin for reactive airway disease secondary to RSV with possible overlying COPD. On day of discharge, patient was back to room air with no complaints of dyspnea. I also discussed Hospital course and plan of care with her daughter as well. Gen: in no apparent distress, resting comfortably in bed Eyes: PERRL, no scleral injection or icterus HENT: normocephalic, atraumatic, good hearing acuity, moist mucous membranes Neck: no tracheal deviation, full range of motion Resp: Impaired air exchange, breathing comfortably with no accessory muscle use, no tactile fremitus, diffuse wheezing CVS: good distal perfusion x 4, no pitting edema, regular rate and rhythm GI: soft, NTTP, ND, no hepatosplenomegaly : no suprapubic tenderness, no CVAT, mena catheter not present MSK: no clubbing, no cyanosis, no noted contractures of extremities Skin: no noted rashes, petechiae; temperature of skin is appropriate Neuro: moving all extremities without signs of weakness, CN II-XII intact Psych: cooperative, euthymic mood, insight and judgment impaired Patient Condition at Discharge: Good Plan - Discharge Summary New Discharge Prescriptions: New Albuterol Sulfate [Albuterol Sulfate Hfa] 1 puff PO Q4-6H #8.5 gm predniSONE [Deltasone] 40 mg PO DAILY 3 Days #6 tab Azithromycin [Zithromax] 500 mg PO DAILY #2 tab Continue Metoprolol Succinate [Toprol XL] 25 mg PO DAILY lisinopriL [Zestril] 2.5 mg PO DAILY #30 tab Furosemide [Lasix] 40 mg PO DAILY #1 tab Donepezil [Aricept] 5 mg PO DAILY Apixaban [Eliquis] 2.5 mg PO BID Glimepiride [Amaryl] 2 mg PO AC-BRKFST Bismuth Subsalicylate [Pepto-Bismol] 262 mg PO QID PRN PRN Reason: Gi Upset Discontinued Sulfamethoxazole/Trimethoprim [Bactrim DS 800-160 mg] 1 tab PO BID Discharge Medication List Metoprolol Succinate [Toprol XL] 25 mg PO DAILY 05/28/14 [History] Furosemide [Lasix] 40 mg PO DAILY #1 tab 06/07/14 [Rx] lisinopriL [Zestril] 2.5 mg PO DAILY #30 tab 06/07/14 [Rx] Donepezil [Aricept] 5 mg PO DAILY 11/29/19 [History] Apixaban [Eliquis] 2.5 mg PO BID 08/12/22 [History] Bismuth Subsalicylate [Pepto-Bismol] 262 mg PO QID PRN 08/12/22 [History] Glimepiride [Amaryl] 2 mg PO AC-BRKFST 08/12/22 [History] Albuterol Sulfate [Albuterol Sulfate Hfa] 1 puff PO Q4-6H #8.5 gm 08/13/22 [Rx] Azithromycin [Zithromax] 500 mg PO DAILY #2 tab 08/13/22 [Rx] predniSONE [Deltasone] 40 mg PO DAILY 3 Days #6 tab 08/13/22 [Rx] Follow up Appointment(s)/Referral(s): None,Stated [REFERRING] - 1-2 days Discharge Disposition: HOME WITH HOME HEALTH SERVICES
== END 2022-08-13 11:36 | disposition home health service (06) ==
LOC: EC 12:20 → 6NMEDSUR 17:20
PROVIDERS: ADMIT Internal Medicine; ATTEND Internal Medicine
DX: J96.01 Acute respiratory failure with hypoxia (principal); J45.909 Unspecified asthma, uncomplicated; I48.21 Permanent atrial fibrillation; E11.22 Type 2 diabetes mellitus with diabetic chronic kidney disease; I13.0 Hypertensive heart and chronic kidney disease with heart failure and stage 1 through stage 4 chronic kidney disease, or unspecified chronic kidney disease; I50.22 Chronic systolic (congestive) heart failure; N18.30 Chronic kidney disease, stage 3 unspecified; F03.90 Unspecified dementia, unspecified severity, without behavioral disturbance, psychotic disturbance, mood disturbance, and anxiety; E78.5 Hyperlipidemia, unspecified; Z85.3 Personal history of malignant neoplasm of breast; Z92.3 Personal history of irradiation; Z95.0 Presence of cardiac pacemaker; Z79.01 Long term (current) use of anticoagulants; Z79.84 Long term (current) use of oral hypoglycemic drugs; Z79.899 Other long term (current) drug therapy; Z88.0 Allergy status to penicillin; Z83.3 Family history of diabetes mellitus; Z20.822 Contact with and (suspected) exposure to COVID-19
CPT/HCPCS: 96376 ×2; 96361; 96365; 96366; 96375; 99285; 36415; 94640 ×2; 93005; 83880; 80053; 80048; 83605; 83735 ×2; 84484; 85025 ×2; 85610; 85730; 81003; 87040; 87077; 87186; 87502; 83036; 84145; 87634; 87635; 71045; 71046; G0378 ×2; J2930 ×2; J0456; J0696

== ENCOUNTER → 2023-06-27 | Outpatient (CLI) | payer OTHER ==
--- NOTE | 2023-06-27 11:17 | FL ---
EXAMINATION TYPE: FL barium swallow DATE OF EXAM: 06/27/2023 10:46 AM COMPARISON: 11/06/2022 CLINICAL INDICATION:Female, 87 years old with history of [id number] DYSPHAGIA FOLLOWING SUBARACHNOID HEMO RRHAGE; [facility], TECHNIQUE: The procedure was explained and patient history elicited. All patient questions were ans wered prior to start of procedure. Multiple spot fluoroscopic images of the esophagus were obtained a fter the oral ingestion of effervescent crystals and liquid barium as the contrast agent. Fluoroscopic time: 21 seconds Fluoroscopic images: 0 Radiographs taken: 72 DAP: Not reported [id number] FINDINGS: Limited evaluation due to overlying cardiac pacemaker. There is tertiary contractions prese nt. There is free flow of contrast into the stomach. The esophageal mucosa is smooth without evidence of focal stricture, ulceration, or abnormal outpouching. No gastroesophageal reflux disease was nahun ntified IMPRESSION: Esophageal dysmotility.
== END | disposition home or self-care (01) ==
LOC: RADUSWWP 10:00
PROVIDERS: ATTEND Emergency Medicine
DX: I69.091 Dysphagia following nontraumatic subarachnoid hemorrhage (principal); K22.4 Dyskinesia of esophagus
CPT/HCPCS: 74220

== ENCOUNTER → 2024-01-06 | Outpatient (CLI) | payer OTHER ==
--- NOTE | 2024-01-06 12:32 | FL ---
COMPARISON: NONE DATE OF EXAM: 01/06/2024 HISTORY: Dysphasia A number of thin and thick substances were ingested under the care of the department of speech pathol ogy. There is aspiration or penetration thin barium and nectar. Penetration with honey. There is no evidence of obstruction. DAP are not provided. IMPRESSION: 1. Positive exam for aspiration with thin barium and nectar.
== END | disposition home or self-care (01) ==
LOC: RADFLMAIN 11:21
PROVIDERS: ATTEND Internal Medicine Hospice and Palliative Medicine
DX: R13.10 Dysphagia, unspecified (principal)
CPT/HCPCS: 74230

== ENCOUNTER 2024-01-17 20:03 | Emergency (ER) | payer OTHER ==
[2024-01-17 20:26] VITALS: TEMP 98.3
--- NOTE | 2024-01-17 20:28 | ED ---
General Adult HPI - General Chief complaint: Weakness Stated complaint: lethargic Time Seen by Provider: 01/17/24 20:16 Source: patient Mode of arrival: EMS Limitations: no limitations - History of Present Illness Initial comments: This patient is an 88-year-old woman sent from [facility] to have evaluation for "lethargy" and by that they mean that the patient just wanted to sit in her chair for all afternoon. They state that she did not even want to get up to use the bathroom today. When I interviewed the patient, she is denying pain. She denies dyspnea. She states that she just wants to go back to the assisted. Onset/Timin -: hour(s) Severity scale (1-10): 0 Consistency: constant Improves with: none Worsens with: none Associated Symptoms: denies other symptoms Treatments Prior to Arrival: none - Related Data Home Medications Medication Instructions Recorded Confirmed Metoprolol Succinate [Toprol XL] 25 mg PO DAILY 05/28/14 08/12/22 Donepezil [Aricept] 5 mg PO DAILY 11/29/19 08/12/22 Apixaban [Eliquis] 2.5 mg PO BID 08/12/22 08/12/22 Bismuth Subsalicylate 262 mg PO QID PRN 08/12/22 08/12/22 [Pepto-Bismol] Glimepiride [Amaryl] 2 mg PO AC-BRKFST 08/12/22 08/12/22 Previous Rx's Medication Instructions Recorded Furosemide [Lasix] 40 mg PO DAILY #1 tab 06/07/14 lisinopriL [Zestril] 2.5 mg PO DAILY #30 tab 06/07/14 Albuterol Sulfate [Albuterol 1 puff PO Q4-6H #8.5 gm 08/13/22 Sulfate Hfa] Azithromycin [Zithromax] 500 mg PO DAILY #2 tab 08/13/22 predniSONE [Deltasone] 40 mg PO DAILY 3 Days #6 tab 08/13/22 Sulfamethox-Tmp 800-160Mg [Bactrim 1 each PO Q12HR #6 tab 01/17/24 Ds] Allergies Allergy/AdvReac Type Severity Reaction Status Date / Time Penicillins Allergy Rash/Hives Verified 01/27/24 12:09 Review of Systems ROS Statement: Those systems with pertinent positive or pertinent negative responses have been documented in the HPI. ROS Other: All systems not noted in ROS Statement are negative. Constitutional: Denies: fever, chills, weakness Respiratory: Denies: cough, dyspnea Cardiovascular: Denies: chest pain, palpitations Gastrointestinal: Denies: abdominal pain, vomiting, diarrhea Genitourinary: Denies: dysuria, hematuria Musculoskeletal: Denies: back pain Skin: Denies: rash Neurological: Denies: headache, weakness Past Medical History Past Medical History: Dementia, Diabetes Mellitus, Hypertension History of Any Multi-Drug Resistant Organisms: None Reported Past Surgical History: Pacemaker Past Psychological History: Unable to Obtain Past Alcohol Use History: None Reported Past Drug Use History: None Reported General Exam Limitations: no limitations General appearance: alert, in no apparent distress Head exam: Present: atraumatic, normocephalic Eye exam: Present: normal appearance, PERRL, EOMI. Absent: scleral icterus, conjunctival injection Neck exam: Present: normal inspection, full ROM. Absent: tenderness Respiratory exam: Present: normal lung sounds bilaterally. Absent: respiratory distress, wheezes, rales, rhonchi, stridor, chest wall tenderness, accessory muscle use Cardiovascular Exam: Present: normal rhythm, bradycardia (Heart rate 56 at my exam), normal heart sounds. Absent: systolic murmur, diastolic murmur, rubs, gallop GI/Abdominal exam: Present: soft. Absent: distended, tenderness, guarding, rebound, rigid Extremities exam: Present: normal inspection, normal capillary refill. Absent: pedal edema, calf tenderness Back exam: Present: normal inspection Neurological exam: Present: alert. Absent: motor sensory deficit Skin exam: Present: warm, dry, intact, normal color. Absent: rash Course Vital Signs 01/17/24 01/17/24 01/17/24 20:06 22:41 23:27 Temperature 98.3 F Pulse Rate 51 L 82 88 Respiratory 16 18 18 Rate Blood Pressure 113/45 121/66 116/75 O2 Sat by Pulse 96 98 98 Oximetry Medical Decision Making - Medical Decision Making Was pt. sent in by a medical professional or institution (, PA, FINANCIAL DEVELOPER, urgent care, hospital, or assisted...) When possible be specific @ -[Patient sent to have evaluation from her long-term care facility Did you speak to anyone other than the patient for history (EMS, parent, family, police, friend...)? What history was obtained from this source @ -[No] Did you review nursing and triage notes (agree or disagree)? Why? @ -[I reviewed and agree with nursing and triage notes] Were old charts reviewed (outside hosp., previous admission, EMS record, old EKG, old radiological studies, urgent care reports/EKG's, assisted records)? Report findings @ -[Transfer charts were reviewed] Differential Diagnosis (chest pain, altered mental status, abdominal pain women, abdominal pain men, vaginal bleeding, weakness, fever, dyspnea, syncope, headache, dizziness, GI bleed, back pain, seizure, CVA, palpatations, mental health, musculoskeletal)? @ -[Differential Weakness: Hypoglycemia, shock, sepsis, hyponatremia, anemia, infection, NM, ETOH, adverse medicine reaction, overdose, stroke, this is not meant to be an all-inclusive list. EKG interpreted by me (3pts min.). @ -[As above] X-rays interpreted by me (1pt min.). @ -[None done] CT interpreted by me (1pt min.). @ -[None done] U/S interpreted by me (1pt. min.). @ -[None done] What testing was considered but not performed or refused? (CT, X-rays, U/S, labs)? Why? @ -[None] What meds were considered but not given or refused? Why? @ -[None] Did you discuss the management of the patient with other professionals (professionals i.e. , PA, FINANCIAL DEVELOPER, lab, RT, psych nurse, social services analyst, director of sustainability programs, teacher, security police officer, case management director)? Give summary @ -[No] Was smoking cessation discussed for >3mins.? @ -[No] Was critical care preformed (if so, how long)? @ -[No] Were there social determinants of health that impacted care today? How? (H omelessness, low income, unemployed, alcoholism, drug addiction, transportation, low edu. Level, literacy, decrease access to med. care, detention, rehab)? @ -[No] Was there de-escalation of care discussed even if they declined (Discuss DNR or withdrawal of care, Hospice)? DNR status @ -[No] What co-morbidities impacted this encounter? (DM, HTN, Smoking, COPD, CAD, Cancer, CVA, ARF, Chemo, Hep., AIDS, mental health diagnosis, sleep apnea, morbid obesity)? @ -[None] Was patient admitted / discharged? Hospital course, mention meds given and route, prescriptions, significant lab abnormalities, going to OR and other pertinent info. @ -[hospital course] Undiagnosed new problem with uncertain prognosis? @ -[No] Drug Therapy requiring intensive monitoring for toxicity (Heparin, Nitro, Insulin, Cardizem)? @ -[No] Were any procedures done? @ -[No] Diagnosis/symptom? @ -[Acute urinary tract infection Acute, or Chronic, or Acute on Chronic? @ -[Acute Uncomplicated (without systemic symptoms) or Complicated (systemic symptoms)? @ -[Uncomplicated Side effects of treatment? @ -[No] Exacerbation, Progression, or Severe Exacerbation? @ -[No] Poses a threat to life or bodily function? How? (Chest pain, USA, NM, pneumonia, PE, COPD, DKA, ARF, appy, cholecystitis, CVA, Diverticulitis, Homicidal, Suicidal, threat to staff... and all critical care pts) @ -[No] - Lab Data Lab Results 01/17/24 Range/Units 22:23 Urine Color Colorless Urine Appearance Cloudy H (Clear) Urine pH 5.0 (5.0-8.0) Ur Specific [place] 1.014 (1.001-1.035) Urine Protein Negative (Negative) Urine Glucose (UA) Negative (Negative) Urine Ketones Negative (Negative) Urine Blood Negative (Negative) Urine Nitrite Positive H (Negative) Urine Bilirubin Negative (Negative) Urine Urobilinogen <2.0 (<2.0) mg/dL Ur Leukocyte Esterase Large H (Negative) Urine RBC 2 (0-5) /hpf Urine WBC 84 H (0-5) /hpf Urine WBC Clumps Few H (None) /hpf Ur Squamous Epith Cells 1 (0-4) /hpf Amorphous Sediment Rare H (None) /hpf Urine Bacteria Many H (None) /hpf Urine Mucus Rare H (None) /hpf Disposition Clinical Impression: UTI (urinary tract infection) Disposition: HOME SELF-CARE Condition: Good Instructions (If sedation given, give patient instructions): Urinary Tract Infection in Women (ED) Prescriptions: Sulfamethox-Tmp 800-160Mg [Bactrim Ds] 1 each PO Q12HR #6 tab Is patient prescribed a controlled substance at d/c from ED?: No Referrals: None,Stated [REFERRING] - 1-2 days
[2024-01-17 22:45] VITALS: RESP 18
[2024-01-17 22:51] LABS: Amorphous Sediment,Urine Rare /hpf; Appearance,Urine Cloudy (Clear); Bacteria,Urine Many /hpf; Bilirubin,Urine Negative (Negative); Blood,Urine Negative (Negative); Color,Urine Colorless; Glucose,Urine (UA) Negative (Negative); Ketones,Urine Negative (Negative); Leukocyte Esterase,Urine Large (Negative); Mucus,Urine Rare /hpf; Nitrite,Urine Positive (Negative); Protein,Urine Negative (Negative); RBC,Urine 2 /hpf (0-5); Specific Gravity,Urine 1.014 (1.001-1.035); Squamous Epithelial Cell,Urine 1 /hpf (0-4); Urobilinogen,Urine <2.0 mg/dL (<2.0); WBC,Urine 84 /hpf (0-5)
[2024-01-17] MEDS: SULFAMETHOX-TMP 800-160MG 1 EACH TAB PO STA (23:25)
[2024-01-18 00:27] VITALS: BP 116/75; PULSE 88
== END 2024-01-17 23:43 | disposition home or self-care (01) ==
LOC: EDBD → MERGE 20:03 → EC 20:03
DX: N39.0 Urinary tract infection, site not specified (principal); Z88.0 Allergy status to penicillin
CPT/HCPCS: 81001; 99285

== ENCOUNTER 2024-01-22 20:16 | Emergency (ER) | payer OTHER ==
[2024-01-22 20:31] VITALS: TEMP 97.1
--- NOTE | 2024-01-22 21:11 | ED ---
Fall HPI - General Chief Complaint: Fall Stated Complaint: Fall on thinners Time Seen by Provider: 01/22/24 20:35 Source: EMS, RN notes reviewed Mode of arrival: EMS - History of Present Illness Initial Comments: 88-year-old female on Eliquis with history of dementia presenting to the ER with chief complaint of head injury 1 hour prior to arrival. Patient resides at [facility] [place] and reports she rolled out of bed and fell onto the floor, hitting her forehead on the floor. She reports that she did not lose consciousness and it was a mechanical fall. Denies other injuries. She denies any current pain, vision changes, weakness, numbness, tingling, altered mental status. Daughter is present on examination and reports she does not appear altered and is not concerned for underlying cause for fall at this time. - Related Data Home Medications Medication Instructions Recorded Confirmed Metoprolol Succinate [Toprol XL] 25 mg PO DAILY 05/28/14 08/12/22 Donepezil [Aricept] 5 mg PO DAILY 11/29/19 08/12/22 Apixaban [Eliquis] 2.5 mg PO BID 08/12/22 08/12/22 Bismuth Subsalicylate 262 mg PO QID PRN 08/12/22 08/12/22 [Pepto-Bismol] Glimepiride [Amaryl] 2 mg PO AC-BRKFST 08/12/22 08/12/22 Previous Rx's Medication Instructions Recorded Furosemide [Lasix] 40 mg PO DAILY #1 tab 06/07/14 lisinopriL [Zestril] 2.5 mg PO DAILY #30 tab 06/07/14 Albuterol Sulfate [Albuterol 1 puff PO Q4-6H #8.5 gm 08/13/22 Sulfate Hfa] Azithromycin [Zithromax] 500 mg PO DAILY #2 tab 08/13/22 predniSONE [Deltasone] 40 mg PO DAILY 3 Days #6 tab 08/13/22 Allergies Allergy/AdvReac Type Severity Reaction Status Date / Time Penicillins Allergy Rash/Hives Verified 01/22/24 20:25 Review of Systems ROS Statement: Those systems with pertinent positive or pertinent negative responses have been documented in the HPI. ROS Other: All systems not noted in ROS Statement are negative. Past Medical History Past Medical History: Atrial Fibrillation, Cancer, Heart Failure, Diabetes Mellitus, Eye Disorder, Hyperlipidemia, Hypertension Additional Past Medical History / Comment(s): GLAUCOMA, DIET CONTROLLED DIABETIC,.ARTHRITIS, HX BREAST CANCER WITH RADIATION (2010), SEE DR CARLOZ Laird., SHORT TERM MEMORY LOSS., WEARS DEPENDS. History of Any Multi-Drug Resistant Organisms: None Reported Past Surgical History: AICD, Heart Catheterization, Hysterectomy, Pacemaker Additional Past Surgical History / Comment(s): LT CATARACT REMOVED, LUMPECTOMY RT BREAST, THORACENTESIS & PERICARDIAL WINDOW. Past Anesthesia/Blood Transfusion Reactions: No Reported Reaction Type of Cardiac Device: Permanent Pacemaker, AICD Device Placement Date:: 10-08-2013 Past Psychological History: No Psychological Hx Reported Smoking Status: Never smoker Past Alcohol Use History: Daily Past Drug Use History: None Reported - Past Family History Father Additional Family Medical History / Comment(s): IN HIS 70'S FROM A STROKE Mother Family Medical History: CVA/TIA, Diabetes Mellitus Additional Family Medical History / Comment(s): IN HER 80'S STROKE/ COMPICATIONS FROM DIABETES General Exam Limitations: no limitations General appearance: alert, in no apparent distress Head exam: Present: normocephalic, other (4 x 4 cm hematoma present on right side of forehead. No other bruising or injuries noted.) Eye exam: Present: normal appearance, PERRL, EOMI. Absent: scleral icterus, conjunctival injection, periorbital swelling Pupils: Present: normal accommodation ENT exam: Present: normal exam, mucous membranes moist, TM's normal bilaterally Neck exam: Present: normal inspection. Absent: tenderness, meningismus, lymphadenopathy Respiratory exam: Present: normal lung sounds bilaterally. Absent: respiratory distress, wheezes, rales, rhonchi, stridor Cardiovascular Exam: Present: regular rate, normal rhythm, normal heart sounds. Absent: systolic murmur, diastolic murmur, rubs, gallop, clicks GI/Abdominal exam: Present: soft, normal bowel sounds. Absent: distended, tenderness, guarding, rebound, rigid Neurological exam: Present: alert, oriented X3, CN II-XII intact Psychiatric exam: Present: normal affect, normal mood Skin exam: Present: warm, dry, intact, normal color. Absent: rash Course Vital Signs 01/22/24 01/22/24 20:17 22:05 Temperature 97.1 F L Pulse Rate 64 62 Respiratory 18 16 Rate Blood Pressure 139/73 128/66 O2 Sat by Pulse 95 95 Oximetry Medical Decision Making - Medical Decision Making Was pt. sent in by a medical professional or institution (TEJAL Caraballo, WATER TAXI CAPTAIN, urgent care, hospital, or correction...) When possible be specific @ -Sent by [facility] [place] Did you speak to anyone other than the patient for history (EMS, parent, family, police, friend...)? What history was obtained from this source @ -Patient's daughter supplemented history Did you review nursing and triage notes (agree or disagree)? Why? @ -I reviewed and agree with nursing and triage notes Were old charts reviewed (outside hosp., previous admission, EMS record, old EKG, old radiological studies, urgent care reports/EKG's, correction records)? Report findings @ -No old charts were reviewed Differential Diagnosis (chest pain, altered mental status, abdominal pain women, abdominal pain men, vaginal bleeding, weakness, fever, dyspnea, syncope, headache, dizziness, GI bleed, back pain, seizure, CVA, palpatations, mental health, musculoskeletal)? @ -Intracranial bleed, concussion, hematoma, laceration, syncope EKG interpreted by me (3pts min.). @ -None X-rays interpreted by me (1pt min.). @ -None done CT interpreted by me (1pt min.). @ -CT of head and neck revealed no acute abnormality U/S interpreted by me (1pt. min.). @ -None done What testing was considered but not performed or refused? (CT, X-rays, U/S, labs)? Why? @ -None What meds were considered but not given or refused? Why? @ -None Did you discuss the management of the patient with other professionals (professionals i.e. TEJAL Caraballo, WATER TAXI CAPTAIN, lab, RT, psych nurse, sr. social media & mobile manager, civil engineering professional, teacher, giving officer, casework specialist)? Give summary @ -No Was smoking cessation discussed for >3mins.? @ -No Was critical care preformed (if so, how long)? @ -No Were there social determinants of health that impacted care today? How? (Homelessness, low income, unemployed, alcoholism, drug addiction, transportation, low edu. Level, literacy, decrease access to med. care, intermediate, rehab)? @ -No Was there de-escalation of care discussed even if they declined (Discuss DNR or withdrawal of care, Hospice)? DNR status @ -No What co-morbidities impacted this encounter? (DM, HTN, Smoking, COPD, CAD, Cancer, CVA, ARF, Chemo, Hep., AIDS, mental health diagnosis, sleep apnea, morbid obesity)? @ -None Was patient admitted / discharged? Hospital course, mention meds given and route, prescriptions, significant lab abnormalities, going to OR and other pertinent info. @ -Patient was discharged. Patient was seen and evaluated for head injury statu s post mechanical fall 1 hour prior to arrival. Patient is on Eliquis. Denies loss of consciousness or altered mental status. Vitals are stable, there is a hematoma present on right side of forehead. Neuro examination is unremarkable. CT head and neck revealed no acute abnormality. Discussed with patient and daughter there is no sign of acute intracranial bleed or fracture. Supportive care for hematoma discussed. Strict return/alarm symptoms discussed with patient and daughter and they show understanding and agree to plan. Patient discharged in stable condition. Case discussed with Dr. Strickland. Undiagnosed new problem with uncertain prognosis? @ -No Drug Therapy requiring intensive monitoring for toxicity (Heparin, Nitro, Insulin, Cardizem)? @ -No Were any procedures done? @ -No Diagnosis/symptom? @ -Hematoma on forehead, head injury Acute, or Chronic, or Acute on Chronic? @ -Acute Uncomplicated (without systemic symptoms) or Complicated (systemic symptoms)? @ -Uncomplicated Side effects of treatment? @ -No Exacerbation, Progression, or Severe Exacerbation? @ -No Poses a threat to life or bodily function? How? (Chest pain, USA, [place], pneumonia, PE, COPD, DKA, ARF, appy, cholecystitis, CVA, Diverticulitis, Homicidal, Suicidal, threat to staff... and all critical care pts) @ -No Disposition Clinical Impression: Head injury, acute Disposition: HOME SELF-CARE Condition: Stable Instructions (If sedation given, give patient instructions): Fall Prevention for Older Adults (ED) Additional Instructions: Please return to the Emergency Department if symptoms worsen or any other concerns. Is patient prescribed a controlled substance at d/c from ED?: No Referrals: None,Stated [Primary Care Provider] - 1-2 days Time of Disposition: 21:50
--- NOTE | 2024-01-22 21:38 | CT ---
EXAMINATION TYPE: CT brain cspine wo con CT DLP: 1208.2 mGycm, Automated exposure control for dose reduction was used. DATE OF EXAM: 01/22/2024 9:26 PM COMPARISON: 11/06/2022 CLINICAL INDICATION:Female, 88 years old with history of pain; fall abrasion to forehead TECHNIQUE: Brain: Multiple axial CT images of the brain were obtained without IV contrast. Cspine: Axial CT images from the skull base to the inferior aspect of T2 we obtained without intraven ous contrast. Coronal and sagittal reformatted images were also reviewed. FINDINGS: Brain: Extra-axial spaces: No abnormal extra-axial fluid collections. Ventricular system: Dilatation in proportion to cerebral atrophy. Cerebral parenchyma: Cerebral atrophy. No acute intraparenchymal hemorrhage or mass effect. The bruner -white junction is well differentiated. Scattered hypoattenuating areas are seen within the white mat ter. Cerebellum: Unremarkable. Mass effect: No evidence of midline shift. Intracranial vasculature: Atherosclerotic calcifications of the intracranial vessels. Soft tissues: Normal. Calvarium/osseous structures: No depressed skull fracture. Paranasal sinuses and mastoid air cells: Clear. Visualized orbits: Bilaterally aphakia. Cervical spine: Fracture: None. Osseous structures: Multilevel degenerative disc disease changes with endplate spurring and disc oste ophyte complex's. Vertebral alignment: Straightening of the spine. May be grade 1 anterolisthesis of C6 on C7. Spinal canal/Neural Foramina: Disc osteophyte complexes at C2-C3, C5 5 C6 and C6-C7 with at least mil d spinal canal stenosis. Facet joint uncovertebral joint arthropathy scattered throughout the cervica l spine with varying degrees of neural foraminal stenosis. Neural foraminal stenosis worse at C5-C6 w ith severe right, severe right C4-C5 Neck soft tissues: Prevertebral soft tissues are within normal limits. Other: The airway is patent. Atrophy changes of the supraspinatus and infraspinatus muscles bilateral ly suggestive of rotator cuff tears. IMPRESSION: 1. No acute intracranial process. 2. No evidence of cervical spine fracture. 3. Moderate to severe multilevel degenerative disc disease.
[2024-01-22 22:18] VITALS: BP 128/66; PULSE 62; RESP 16
== END 2024-01-22 22:06 | disposition home or self-care (01) ==
LOC: EC 20:16
DX: S00.83XA Contusion of other part of head, initial encounter (principal); Z88.0 Allergy status to penicillin; W06.XXXA Fall from bed, initial encounter
CPT/HCPCS: 70450; 72125; 99284

== ENCOUNTER 2024-02-21 23:51 | Observation (INO) | payer OTHER ==
[2024-02-22 00:40] LABS: Basophils # (A) 0.1 k/uL (0-0.2); Basophils % (A) 1 %; Eosinophils # (A) 0.2 k/uL (0-0.7); Eosinophils % (A) 1 %; HCT 41.6 % (34.0-46.0); HGB 13.1 gm/dL (11.4-16.0); Lymphocytes # (A) 3.9 k/uL (1.0-4.8); Lymphocytes % (A) 30 %; MCH 33.1 pg (25.0-35.0); MCHC 31.4 g/dL (31.0-37.0); MCV 105.4 fL (80.0-100.0); Macrocytosis Moderate; Monocytes % (A) 8 %; Neutrophils # (A) 7.5 k/uL (1.3-7.7); Neutrophils % (A) 59 %; Platelet Count 277 k/uL (150-450); RBC 3.94 m/uL (3.80-5.40); RDW 13.6 % (11.5-15.5); WBC 12.8 k/uL (3.8-10.6)
[2024-02-22 00:44] LABS: Glucose,Whole Blood 77 mg/dL (70-110)
[2024-02-22 00:56] LABS: ALT 14 U/L (4-34); AST 43 U/L (14-36); African American GFR (CKD) 43 (>60 ml/min/1.73 sqM); Albumin 3.8 g/dL (3.5-5.0); Alcohol <10 mg/dL; Alkaline Phosphatase 60 U/L (38-126); Anion Gap 7 mmol/L; Blood Urea Nitrogen 33 mg/dL (7-17); Calcium 8.9 mg/dL (8.4-10.2); Carbon Dioxide 21 mmol/L (22-30); Chloride 108 mmol/L (98-107); Glucose 67 mg/dL (74-99); Non-African American GFR(CKD) 37 (>60 ml/min/1.73 sqM); Sodium 136 mmol/L (137-145); Total Bilirubin 1.2 mg/dL (0.2-1.3)
[2024-02-22 01:05] LABS: Amphetamine Screen,Urine Not Detected (NotDetected); Barbiturate Screen,Urine Not Detected (NotDetected); Benzodiazepines Screen,Urine Not Detected (NotDetected); Cocaine Screen,Urine Not Detected (NotDetected); Methadone Screen, Urine Not Detected (NotDetected); Opiate Screen,Urine Not Detected (NotDetected); Oxycodone Screen, Urine Not Detected (NotDetected); Phencyclidine Screen,Urine Not Detected (NotDetected); Tricyclic Antidepressant,Urine Not Detected (NotDetected); Urn Cannabinoid Scrn Not Detected (NotDetected)
--- NOTE | 2024-02-22 01:07 | ED ---
General Adult HPI - General Chief complaint: Altered Mental Status Stated complaint: alt mental Time Seen by Provider: 02/21/24 23:59 Source: patient, EMS, RN notes reviewed, old records reviewed Mode of arrival: EMS Limitations: altered mental status - History of Present Illness Initial comments: Patient is an 88-year-old female presents emergency department for altered mental status. Patient has a history of dementia, A-fib on blood thinners, heart failure, diabetes, hypertension, hyperlipidemia. Normally is ANO x 3-4. [facility] at [facility]. Was sent here for for altered mentation. They are concerned because she seems more sleepy. Does have a history of UTIs. Unknown last known well. Patient currently is following commands and is alert and oriented only to 1, self. Denies any acute complaints otherwise. Presents for further evaluation at this time. Patient denies chest pain, shortness of breath, abdominal pain, fevers, chills, cough. - Related Data Home Medications Medication Instructions Recorded Confirmed Metoprolol Succinate [Toprol XL] 25 mg PO DAILY 05/28/14 08/12/22 Donepezil [Aricept] 5 mg PO DAILY 11/29/19 08/12/22 Apixaban [Eliquis] 2.5 mg PO BID 08/12/22 08/12/22 Bismuth Subsalicylate 262 mg PO QID PRN 08/12/22 08/12/22 [Pepto-Bismol] Glimepiride [Amaryl] 2 mg PO [id number] 08/12/22 08/12/22 Previous Rx's Medication Instructions Recorded Furosemide [Lasix] 40 mg PO DAILY #1 tab 06/07/14 lisinopriL [Zestril] 2.5 mg PO DAILY #30 tab 06/07/14 Albuterol Sulfate [Albuterol 1 puff PO Q4-6H #8.5 gm 08/13/22 Sulfate Hfa] Azithromycin [Zithromax] 500 mg PO DAILY #2 tab 08/13/22 predniSONE [Deltasone] 40 mg PO DAILY 3 Days #6 tab 08/13/22 Sulfamethox-Tmp 800-160Mg [Bactrim 1 each PO Q12HR #6 tab 01/17/24 Ds] Allergies Allergy/AdvReac Type Severity Reaction Status Date / Time Penicillins Allergy Rash/Hives Verified 01/27/24 12:09 Review of Systems ROS Statement: Those systems with pertinent positive or pertinent negative responses have been documented in the HPI. Review of Systems: CONST: Denies fever EYES: Denies blurry vision ENT: Denies nasal congestion C/V: Denies Chest pain RESP: Denies shortness of breath GI: Denies abdominal pain : Denies dysuria SKIN: Denies rash. MSK: Denies joint pain. NEURO: Denies headache ROS Other: All systems not noted in ROS Statement are negative. Past Medical History Past Medical History: Atrial Fibrillation, Cancer, Heart Failure, Dementia, Diabetes Mellitus, Eye Disorder, Hyperlipidemia, Hypertension Additional Past Medical History / Comment(s): GLAUCOMA, DIET CONTROLLED DIABETIC,.ARTHRITIS, HX BREAST CANCER WITH RADIATION (2010), SEE DR CARTY H & P., SHORT TERM MEMORY LOSS., WEARS DEPENDS. History of Any Multi-Drug Resistant Organisms: None Reported Past Surgical History: AICD, Heart Catheterization, Hysterectomy, Pacemaker Additional Past Surgical History / Comment(s): LT CATARACT REMOVED, LUMPECTOMY RT BREAST, THORACENTESIS & PERICARDIAL WINDOW. Past Anesthesia/Blood Transfusion Reactions: No Reported Reaction Type of Cardiac Device: Permanent Pacemaker, AICD Device Placement Date:: 10-08-2013 Past Psychological History: No Psychological Hx Reported, Unable to Obtain Past Alcohol Use History: Daily, None Reported - Past Family History Father Additional Family Medical History / Comment(s): IN HIS 70'S FROM A STROKE Mother Family Medical History: CVA/TIA, Diabetes Mellitus Additional Family Medical History / Comment(s): IN HER 80'S STROKE/ COMPICATIONS FROM DIABETES General Exam - General Exam Comments Initial Comments: General: Appears in no acute distress. HEAD: Normal with no signs of head trauma. EYES: PERRLA, EOMI, conjunctiva normal, no discharge. Pupils are 2 mm equal bilaterally. ENT: Hearing grossly intact, normal oropharynx. RESPIRATORY: Clear breath sounds bilaterally. No wheezes, rales, or rhonchi. C/V: Regular rate and rhythm. S1 and S2 auscultated, no edema, peripheral pulses 2+ and intact throughout ABD: Abd is soft, nontender, nondistended EXT: Normal range of motion, no obvious deformity SKIN: No rashes or lesions observed on exposed skin. NEURO: Alert and oriented x 1. Moving all 4 extremities. No obvious focal deficits. Limitations: altered mental status Course Vital Signs 02/21/24 02/22/24 02/22/24 23:54 00:00 03:00 Temperature 97.0 F L Pulse Rate 61 53 L 53 L Respiratory 20 20 20 Rate Blood Pressure 132/98 131/82 118/53 O2 Sat by Pulse 99 97 Oximetry 02/22/24 04:00 Temperature Pulse Rate 52 L Respiratory 16 Rate Blood Pressure 115/63 O2 Sat by Pulse Oximetry Medical Decision Making - Medical Decision Making Was pt. sent in by a medical professional or institution (, PA, SUPERVISOR, urgent care, hospital, or [facility]...) When possible be specific @ -No Did you speak to anyone other than the patient for history (EMS, parent, family, police, friend...)? What history was obtained from this source @ -No Did you review nursing and triage notes (agree or disagree)? Why? @ -I reviewed and agree with nursing and triage notes Were old charts reviewed (outside hosp., previous admission, EMS record, old EKG, old radiological studies, urgent care reports/EKG's, [facility] records)? Report findings @ -Old charts reviewed from January 17, 2024 when patient was diagnosed with UTI at that time for similar complaints. Differential Diagnosis (chest pain, altered mental status, abdominal pain women, abdominal pain men, vaginal bleeding, weakness, fever, dyspnea, syncope, h eadache, dizziness, GI bleed, back pain, seizure, CVA, palpatations, mental health, musculoskeletal)? @ -Differential Altered Mental Status: Hypoglycemia, DKA, hypercapnia, ETOH, overdose, CO poisoning, trauma, myxedema coma, HTN encephalopathy, infection, encephalitis, psychosis, intercranial hem orrhage, hepatic encephalopathy, meningitis, CVA, this is not meant to be an all-inclusive list EKG interpreted by me (3pts min.). @ -As above X-rays interpreted by me (1pt min.). @ -Chest x-ray negative for any obvious acute cardiopulmonary process. Small left pleural effusion present. CT interpreted by me (1pt min.). @ -CT brain negative for any obvious acute intracranial process. U/S interpreted by me (1pt. min.). @ -None done What testing was considered but not performed or refused? (CT, X-rays, U/S, labs)? Why? @ -None What meds were considered but not given or refused? Why? @ -None Did you discuss the management of the patient with other professionals (professionals i.e. , PA, SUPERVISOR, lab, RT, psych nurse, social worker school, offset second press operator, teacher, community service patrol officer, case management coordinator)? Give summary @ -Discussed with Dr. Deal who accepted the admission. Was smoking cessation discussed for >3mins.? @ -No Was critical care preformed (if so, how long)? @ -No Were there social determinants of health that impacted care today? How? (Homelessness, low income, unemployed, alcoholism, drug addiction, transportation, low edu. Level, literacy, decrease access to med. care, retirement, rehab)? @ -No Was there de-escalation of care discussed even if they declined (Discuss DNR or withdrawal of care, Hospice)? DNR status @ -No What co-morbidities impacted this encounter? (DM, HTN, Smoking, COPD, CAD, Cancer, CVA, ARF, Chemo, Hep., AIDS, mental health diagnosis, sleep apnea, morbid obesity)? @ -Dementia Was patient admitted / discharged? Hospital course, mention meds given and route, prescriptions, significant lab abnormalities, going to OR and other pertinent info. @ -Patient presents for altered mentation. Will obtain altered mental status workup including CT brain. Vital signs currently within acceptable limits. No obvious focal deficits. Oriented only to person when patient is normally oriented to person place and time per [facility]. Unknown last known well. History of UTIs. Vital signs within acceptable limits. No obvious distress at this time. Patient be symptomatically treated with IV fluids at this time. EKG shows no signs of acute ischemia.Imaging unremarkable. Patient's laboratory studies are also unremarkable. Slight leukocytosis of 12. Hemolyzed potassium that returned normal. Slight hypoglycemia initially on presentation but recheck was normal. Troponin is always at his baseline level which it currently is. Urinalysis shows positive nitrites but no other findings. Remainder the workup unremarkable. Patient does have some improvement in mental status but is still confused to time. I discussed with patient and daughter that I would like to observe if she is still below baseline. They are in agreement this plan. I spoke with the admitting physician Dr. Deal who accepted the admission. Undiagnosed new problem with uncertain prognosis? @ -No Drug Therapy requiring intensive monitoring for toxicity (Heparin, Nitro, Insulin, Cardizem)? @ -No Were any procedures done? @ -No Diagnosis/symptom? @ -Altered mental status in setting of dementia Acute, or Chronic, or Acute on Chronic? @ -Acute Uncomplicated (without systemic symptoms) or Complicated (systemic symptoms)? @ -Complicated Side effects of treatment? @ -None Exacerbation, Progression, or Severe Exacerbation] @ -No Poses a threat to life or bodily function? @ -Potentially, yes - Lab Data Result diagrams: 02/22/24 00:28 02/22/24 02:13 Lab Results 02/22/24 02/22/24 02/22/24 Range/Units 00:28 00:28 00:28 WBC 12.8 H (3.8-10.6) k/uL RBC 3.94 (3.80-5.40) m/uL Hgb 13.1 (11.4-16.0) gm/dL Hct 41.6 (34.0-46.0) % MCV 105.4 H (80.0-100.0) fL MCH 33.1 (25.0-35.0) pg MCHC 31.4 (31.0-37.0) g/dL RDW 13.6 (11.5-15.5) % Plt Count 277 (150-450) k/uL MPV 8.0 Neutrophils % 59 % Lymphocytes % 30 % Monocytes % 8 % Eosinophils % 1 % Basophils % 1 % Neutrophils # 7.5 (1.3-7.7) k/uL Lymphocytes # 3.9 (1.0-4.8) k/uL Monocytes # 1.0 (0-1.0) k/uL Eosinophils # 0.2 (0-0.7) k/uL Basophils # 0.1 (0-0.2) k/uL Macrocytosis Moderate PT 10.5 (10.0-12.5) sec INR 0.9 (<1.2) APTT 23.4 (22.0-30.0) sec Sodium (137-145) mmol/L Potassium (3.5-5.1) mmol/L Chloride (98-107) mmol/L Carbon Dioxide (22-30) mmol/L Anion Gap mmol/L BUN (7-17) mg/dL Creatinine (0.52-1.04) mg/dL Est GFR (CKD-EPI)AfAm (>60 ml/min/1.73 sqM) Est GFR (CKD-EPI)NonAf (>60 ml/min/1.73 sqM) Glucose (74-99) mg/dL POC Glucose (mg/dL) (70-110) mg/dL POC Glu Heat Treat Worker ID Plasma Lactic Acid Thee (0.7-2.0) mmol/L Calcium (8.4-10.2) mg/dL Total Bilirubin (0.2-1.3) mg/dL AST (14-36) U/L ALT (4-34) U/L Alkaline Phosphatase (38-126) U/L Ammonia (<30) umol/L Troponin I (0.000-0.034) ng/mL Total Protein (6.3-8.2) g/dL Albumin (3.5-5.0) g/dL Urine Opiates Screen Not Detected (NotDetected) Ur Oxycodone Screen Not Detected (NotDetected) Urine Methadone Screen Not Detected (NotDetected) Ur Barbiturates Screen Not Detected (NotDetected) U Tricyclic Antidepress Not Detected (NotDetected) Ur Phencyclidine Scrn Not Detected (NotDetected) Ur Amphetamines Screen Not Detected (NotDetected) U Methamphetamines Scrn Not Detected (NotDetected) U Benzodiazepines Scrn Not Detected (NotDetected) Urine Cocaine Screen Not Detected (NotDetected) U Marijuana (THC) Screen Not Detected (NotDetected) Serum Alcohol mg/dL Influenza Type A (PCR) (Not Detectd) Influenza Type B (PCR) (Not Detectd) RSV (PCR) (Not Detectd) SARS-CoV-2 (PCR) (Not Detectd) 02/22/24 02/22/24 02/22/24 Range/Units 00:28 00:28 00:28 WBC (3.8-10.6) k/uL RBC (3.80-5.40) m/uL Hgb (11.4-16.0) gm/dL Hct (34.0-46.0) % MCV (80.0-100.0) fL MCH (25.0-35.0) pg MCHC (31.0-37.0) g/dL RDW (11.5-15.5) % Plt Count (150-450) k/uL MPV Neutrophils % % Lymphocytes % % Monocytes % % Eosinophils % % Basophils % % Neutrophils # (1.3-7.7) k/uL Lymphocytes # (1.0-4.8) k/uL Monocytes # (0-1.0) k/uL Eosinophils # (0-0.7) k/uL Basophils # (0-0.2) k/uL Macrocytosis PT (10.0-12.5) sec INR (<1.2) APTT (22.0-30.0) sec Sodium 136 L (137-145) mmol/L Potassium 5.9 H (3.5-5.1) mmol/L Chloride 108 H (98-107) mmol/L Carbon Dioxide 21 L (22-30) mmol/L Anion Gap 7 mmol/L BUN 33 H (7-17) mg/dL Creatinine 1.29 H (0.52-1.04) mg/dL Est GFR (CKD-EPI)AfAm 43 (>60 ml/min/1.73 sqM) Est GFR (CKD-EPI)NonAf 37 (>60 ml/min/1.73 sqM) Glucose 67 L (74-99) mg/dL POC Glucose (mg/dL) (70-110) mg/dL POC Glu Heat Treat Worker ID Plasma Lactic Acid Thee 1.5 (0.7-2.0) mmol/L Calcium 8.9 (8.4-10.2) mg/dL Total Bilirubin 1.2 (0.2-1.3) mg/dL AST 43 H (14-36) U/L ALT 14 (4-34) U/L Alkaline Phosphatase 60 (38-126) U/L Ammonia <9 (<30) umol/L Troponin I 0.018 (0.000-0.034) ng/mL Total Protein 7.0 (6.3-8.2) g/dL Albumin 3.8 (3.5-5.0) g/dL Urine Opiates Screen (NotDetected) Ur Oxycodone Screen (NotDetected) Urine Methadone Screen (NotDetected) Ur Barbiturates Screen (NotDetected) U Tricyclic Antidepress (NotDetected) Ur Phencyclidine Scrn (NotDetected) Ur Amphetamines Screen (NotDetected) U Methamphetamines Scrn (NotDetected) U Benzodiazepines Scrn (NotDetected) Urine Cocaine Screen (NotDetected) U Marijuana (THC) Screen (NotDetected) Serum Alcohol <10 mg/dL Influenza Type A (PCR) (Not Detectd) Influenza Type B (PCR) (Not Detectd) RSV (PCR) (Not Detectd) SARS-CoV-2 (PCR) (Not Detectd) 02/22/24 02/22/24 02/22/24 Range/Units 00:42 00:44 02:13 WBC (3.8-10.6) k/uL RBC (3.80-5.40) m/uL Hgb (11.4-16.0) gm/dL Hct (34.0-46.0) % MCV (80.0-100.0) fL MCH (25.0-35.0) pg MCHC (31.0-37.0) g/dL RDW (11.5-15.5) % Plt Count (150-450) k/uL MPV Neutrophils % % Lymphocytes % % Monocytes % % Eosinophils % % Basophils % % Neutrophils # (1.3-7.7) k/uL Lymphocytes # (1.0-4.8) k/uL Monocytes # (0-1.0) k/uL Eosinophils # (0-0.7) k/uL Basophils # (0-0.2) k/uL Macrocytosis PT (10.0-12.5) sec INR (<1.2) APTT (22.0-30.0) sec Sodium (137-145) mmol/L Potassium 4.1 (3.5-5.1) mmol/L Chloride (98-107) mmol/L Carbon Dioxide (22-30) mmol/L Anion Gap mmol/L BUN (7-17) mg/dL Creatinine (0.52-1.04) mg/dL Est GFR (CKD-EPI)AfAm (>60 ml/min/1.73 sqM) Est GFR (CKD-EPI)NonAf (>60 ml/min/1.73 sqM) Glucose (74-99) mg/dL POC Glucose (mg/dL) 77 (70-110) mg/dL POC Glu Heat Treat Worker ID Albert Casillas Plasma Lactic Acid Thee (0.7-2.0) mmol/L Calcium (8.4-10.2) mg/dL Total Bilirubin (0.2-1.3) mg/dL AST (14-36) U/L ALT (4-34) U/L Alkaline Phosphatase (38-126) U/L Ammonia (<30) umol/L Troponin I (0.000-0.034) ng/mL Total Protein (6.3-8.2) g/dL Albumin (3.5-5.0) g/dL Urine Opiates Screen (NotDetected) Ur Oxycodone Screen (NotDetected) Urine Methadone Screen (NotDetected) Ur Barbiturates Screen (NotDetected) U Tricyclic Antidepress (NotDetected) Ur Phencyclidine Scrn (NotDetected) Ur Amphetamines Screen (NotDetected) U Methamphetamines Scrn (NotDetected) U Benzodiazepines Scrn (NotDetected) Urine Cocaine Screen (NotDetected) U Marijuana (THC) Screen (NotDetected) Serum Alcohol mg/dL Influenza Type A (PCR) Not Detected (Not Detectd) Influenza Type B (PCR) Not Detected (Not Detectd) RSV (PCR) Not Detected (Not Detectd) SARS-CoV-2 (PCR) Not Detected (Not Detectd) 02/22/24 Range/Units 02:49 WBC (3.8-10.6) k/uL RBC (3.80-5.40) m/uL Hgb (11.4-16.0) gm/dL Hct (34.0-46.0) % MCV (80.0-100.0) fL MCH (25.0-35.0) pg MCHC (31.0-37.0) g/dL RDW (11.5-15.5) % Plt Count (150-450) k/uL MPV Neutrophils % % Lymphocytes % % Monocytes % % Eosinophils % % Basophils % % Neutrophils # (1.3-7.7) k/uL Lymphocytes # (1.0-4.8) k/uL Monocytes # (0-1.0) k/uL Eosinophils # (0-0.7) k/uL Basophils # (0-0.2) k/uL Macrocytosis PT (10.0-12.5) sec INR (<1.2) APTT (22.0-30.0) sec Sodium (137-145) mmol/L Potassium (3.5-5.1) mmol/L Chloride (98-107) mmol/L Carbon Dioxide (22-30) mmol/L Anion Gap mmol/L BUN (7-17) mg/dL Creatinine (0.52-1.04) mg/dL Est GFR (CKD-EPI)AfAm (>60 ml/min/1.73 sqM) Est GFR (CKD-EPI)NonAf (>60 ml/min/1.73 sqM) Glucose (74-99) mg/dL POC Glucose (mg/dL) 88 (70-110) mg/dL POC Glu Heat Treat Worker MARLENY Albert Casillas Plasma Lactic Acid Thee (0.7-2.0) mmol/L Calcium (8.4-10.2) mg/dL Total Bilirubin (0.2-1.3) mg/dL AST (14-36) U/L ALT (4-34) U/L Alkaline Phosphatase (38-126) U/L Ammonia (<30) umol/L Troponin I (0.000-0.034) ng/mL Total Protein (6.3-8.2) g/dL Albumin (3.5-5.0) g/dL Urine Opiates Screen (NotDetected) Ur Oxycodone Screen (NotDetected) Urine Methadone Screen (NotDetected) Ur Barbiturates Screen (NotDetected) U Tricyclic Antidepress (NotDetected) Ur Phencyclidine Scrn (NotDetected) Ur Amphetamines Screen (NotDetected) U Methamphetamines Scrn (NotDetected) U Benzodiazepines Scrn (NotDetected) Urine Cocaine Screen (NotDetected) U Marijuana (THC) Screen (NotDetected) Serum Alcohol mg/dL Influenza Type A (PCR) (Not Detectd) Influenza Type B (PCR) (Not Detectd) RSV (PCR) (Not Detectd) SARS-CoV-2 (PCR) (Not Detectd) - EKG Data -: EKG Interpreted by Me EKG Comments: 12-lead Electrocardiogram Interpretation Note EKG was reviewed and interpreted by myself. 12-lead ECG performed at 2358 is interpreted by me as revealing ventricularly paced rhythm at a rate of 65 beats per minute. Indeterminate axis. QRS duration is 133 ms, QTc is 450 ms.. There were no ST or T wave abnormalities to suggest myocardial ischemia or injury. R wave progression across the precordium was satisfactory. By my interpretation this EKG is non-diagnostic for acute ischemia. Disposition Clinical Impression: Altered mental status Disposition: ADMITTED IP TO THIS HOSP Condition: Stable Time of Disposition: 03:00
[2024-02-22] MEDS: SODIUM CHLORIDE 0.9% 1,000 ML IV ONE (01:11)
[2024-02-22 01:16] LABS: Potassium 5.9 mmol/L (3.5-5.1)
[2024-02-22 01:20] LABS: Lactic Acid, Venous 1.5 mmol/L (0.7-2.0)
[2024-02-22 01:37] LABS: INR 0.9 (<1.2); Partial Thromboplastin Time 23.4 sec (22.0-30.0); Prothrombin Time 10.5 sec (10.0-12.5)
--- NOTE | 2024-02-22 02:36 | CT ---
EXAM: CT Head Without Intravenous Contrast CLINICAL HISTORY: ITS.REASON CT Reason: Altered mental status TECHNIQUE: Axial computed tomography images of the head/brain without intravenous contrast. CTDI is 49.2 mGy and DLP is 1095.4 mGy-cm. This CT exam was performed using one or more of the following dose reduction techniques: automated exposure control, adjustment of the mA and/or kV according to patient size, and/or use of iterative reconstruction technique. COMPARISON: No relevant prior studies available. FINDINGS: No acute intracranial hemorrhage. No midline shift or mass effect. The territorial bruner-white matter differentiation is maintained throughout. Age-related cerebral volume loss. Periventricular and subcortical white matter hypoattenuation, consistent with chronic microangiopathy. The visualized orbits appear grossly unremarkable. The calvarium is intact. The visualized paranasal sinuses and mastoid air cells are grossly clear. IMPRESSION: No acute intracranial hemorrhage, midline shift, or mass effect.
[2024-02-22 02:50] LABS: Glucose,Whole Blood 88 mg/dL (70-110)
--- NOTE | 2024-02-22 02:54 | XR ---
EXAM: XR Chest, 2 Views CLINICAL HISTORY: ITS.REASON XR Reason: altered mental status TECHNIQUE: Frontal and lateral views of the chest. COMPARISON: No relevant prior studies available. FINDINGS: Lungs: Unremarkable. No consolidation. Pleural space: Small left pleural effusion. No pneumothorax. Heart: Cardiomegaly. Mediastinum: Unremarkable. Normal mediastinal contour. Bones/joints: Unremarkable. No acute fracture. Tubes, lines and devices: AICD/pacemaker. IMPRESSION: Small left pleural effusion.
[2024-02-22] MEDS ORDERED: NALOXONE 0.4 MG/ML 1 ML VIAL IV PRN (03:08)
[2024-02-22] MEDS ORDERED: ACETAMINOPHEN TAB 325 MG TAB PO PRN (03:08)
[2024-02-22 04:00] LABS: Appearance,Urine Clear (Clear); Bacteria,Urine Occasional /hpf; Bilirubin,Urine Negative (Negative); Blood,Urine Moderate (Negative); Color,Urine Colorless; Glucose,Urine (UA) Negative (Negative); Ketones,Urine Negative (Negative); Leukocyte Esterase,Urine Negative (Negative); Mucus,Urine Rare /hpf; Nitrite,Urine Positive (Negative); Protein,Urine Negative (Negative); RBC,Urine 2 /hpf (0-5); Specific Gravity,Urine 1.011 (1.001-1.035); Squamous Epithelial Cell,Urine 2 /hpf (0-4); Urobilinogen,Urine <2.0 mg/dL (<2.0); WBC,Urine 2 /hpf (0-5)
--- NOTE | 2024-02-22 04:48 | P.HPIM ---
History of Present Illness H&P Date: 02/22/24 Patient is a 88-year-old female with a PMH of type II DM, systolic CHF with EF 35%, A-fib on Eliquis, CKD stage III, dementia, and hypertension who was brought into the emergency room via EMS from [facility] for altered mental status. The patient who has a history of UTIs had reportedly been confused and not quite like herself of the past few days. The patient was confused at the time of inte rview and history thereby obtained from the chart and the ED provider. Patient does not know why she is at the hospital but states feeling okay at the time of interview. She denied any active complaints. CT brain in the emergency room was unremarkable with chest x-ray showing small left-sided pleural effusion but otherwise unremarkable. Laboratory evaluation was remarkable for leukocytosis of 12.8, MCV 105.4, sodium 136, chloride 108, CO2 21, BUN 33, creatinine 1.29, glucose 67, with an unremarkable UA and urine toxicology ED documentation reviewed and case discussed with ED provider. Review of systems: Pertinent positives and negatives as discussed in HPI, a complete review of systems was performed and all other systems are negative. Physical examination: Vital signs reviewed General: non toxic, no distress, appears at stated age, overweight Derm: no unusual rashes/lesions, warm Head: atraumatic, normocephalic, symmetric Eyes: EOMI, no lid lag, anicteric sclera, pupils equal round reactive to light ENT: Nose and ears atraumatic Neck: No cervical lymphadenopathy, trachea midline, supple Mouth: no lip lesion, mucus membranes moist Cardiovascular: S1S2 reg, no murmur, positive dorsalis pedis pulse bilateral, no edema Lungs: CTA bilateral, no rhonchi, no rales, no accessory muscle use Abdominal: soft, nontender to palpation, no guarding Ext: muscle strength 5 out of 5 in all 4 extremities grossly, no gross muscle atrophy, no contractures, Neuro: CN II-XI grossly intact, no gross focal neuro deficits Psych: Alert, oriented to person and place only, not oriented to time Assessment: Altered mental status, possibly secondary to hypoglycemia with history of dementia Leukocytosis, suspect due to acute stressor with no signs of active infection at this time Chronic conditions: Type II DM, systolic CHF, A-fib, CKD, hypertension Imaging: CT brain in the emergency room was unremarkable with chest x-ray showing small left-sided pleural effusion but otherwise unremarkable. Data Review: Laboratory evaluation was remarkable for leukocytosis of 12.8, MCV 105.4, sodium 136, chloride 108, CO2 21, BUN 33, creatinine 1.29, glucose 67, with an unremarkable UA and urine toxicology Plan: Blood glucose monitoring Neurochecks Monitor BMP and CBC Resume home medications once reconciled Fall precautions DVT prophylaxis: Eliquis The patient is admitted with an anticipated fewer than 2 midnight stay for evaluation of altered mental status CODE STATUS: Full Code Discussed with: Patient Anticipated discharge place: Home Past Medical History Past Medical History: Atrial Fibrillation, Cancer, Heart Failure, Dementia, Diabetes Mellitus, Eye Disorder, Hyperlipidemia, Hypertension Additional Past Medical History / Comment(s): GLAUCOMA, DIET CONTROLLED DIABETIC,.ARTHRITIS, HX BREAST CANCER WITH RADIATION (2010), SEE DR CARTY H & PSunday, SHORT TERM MEMORY LOSS., WEARS DEPENDS. History of Any Multi-Drug Resistant Organisms: None Reported Past Surgical History: AICD, Heart Catheterization, Hysterectomy, Pacemaker Additional Past Surgical History / Comment(s): LT CATARACT REMOVED, LUMPECTOMY RT BREAST, THORACENTESIS & PERICARDIAL WINDOW. Past Anesthesia/Blood Transfusion Reactions: No Reported Reaction Type of Cardiac Device: Permanent Pacemaker, AICD Device Placement Date:: 10-08-2013 Past Psychological History: No Psychological Hx Reported, Unable to Obtain Past Alcohol Use History: Daily, None Reported - Past Family History Father Additional Family Medical History / Comment(s): IN HIS 70'S FROM A STROKE Mother Family Medical History: CVA/TIA, Diabetes Mellitus Additional Family Medical History / Comment(s): IN HER 80'S STROKE/ COMPICATIONS FROM DIABETES Medications and Allergies Home Medications Medication Instructions Recorded Confirmed Type Metoprolol Succinate [Toprol XL] 25 mg PO DAILY 05/28/14 08/12/22 History Furosemide [Lasix] 40 mg PO DAILY #1 tab 06/07/14 08/12/22 Rx lisinopriL [Zestril] 2.5 mg PO DAILY #30 tab 06/07/14 08/12/22 Rx Donepezil [Aricept] 5 mg PO DAILY 11/29/19 08/12/22 History Apixaban [Eliquis] 2.5 mg PO BID 08/12/22 08/12/22 History Bismuth Subsalicylate 262 mg PO QID PRN 08/12/22 08/12/22 History [Pepto-Bismol] Glimepiride [Amaryl] 2 mg PO AC-BRKFST 08/12/22 08/12/22 History Albuterol Sulfate [Albuterol 1 puff PO Q4-6H #8.5 gm 08/13/22 Rx Sulfate Hfa] Azithromycin [Zithromax] 500 mg PO DAILY #2 tab 08/13/22 Rx predniSONE [Deltasone] 40 mg PO DAILY 3 Days #6 tab 08/13/22 Rx Sulfamethox-Tmp 800-160Mg [Bactrim 1 each PO Q12HR #6 tab 01/17/24 Rx Ds] Allergies Allergy/AdvReac Type Severity Reaction Status Date / Time Penicillins Allergy Rash/Hives Verified 01/27/24 12:09 Physical Exam Vitals: Vital Signs Temp Pulse Resp BP Pulse Ox 02/22/24 04:00 52 L 16 115/63 02/22/24 03:00 53 L 20 118/53 02/22/24 00:00 53 L 20 131/82 97 02/21/24 23:54 97.0 F L 61 20 132/98 99 Intake and Output 02/21/24 02/21/24 02/22/24 14:59 22:59 06:59 Output Total 250 Balance -250 Output: Urine 250 Straight 250 Other: Weight 72.575 kg Results CBC & Chem 7: 02/22/24 00:28 02/22/24 02:13 Labs: Abnormal Lab Results - Last 24 Hours (Table) 02/22/24 02/22/24 02/22/24 Range/Units 00:28 00:28 03:16 WBC 12.8 H (3.8-10.6) k/uL MCV 105.4 H (80.0-100.0) fL Sodium 136 L (137-145) mmol/L Potassium 5.9 H (3.5-5.1) mmol/L Chloride 108 H (98-107) mmol/L Carbon Dioxide 21 L (22-30) mmol/L BUN 33 H (7-17) mg/dL Creatinine 1.29 H (0.52-1.04) mg/dL Glucose 67 L (74-99) mg/dL AST 43 H (14-36) U/L Urine Blood Moderate H (Negative) Urine Nitrite Positive H (Negative) Urine Bacteria Occasional H (None) /hpf Urine Mucus Rare H (None) /hpf
[2024-02-22 05:53] LABS: Glucose,Whole Blood 79 mg/dL (70-110)
[2024-02-22] MEDS: DEXTROSE 5%-0.9% NACL 1,000 ML IV SCH (09:35)
[2024-02-22] MEDS: ATORVASTATIN 20 MG TAB PO SCH (09:39)
[2024-02-22] MEDS: SPIRONOLACTONE 25 MG TAB PO SCH (09:39)
[2024-02-22] MEDS: FUROSEMIDE 20 MG TAB PO SCH (09:39)
[2024-02-22] MEDS: APIXABAN 2.5 MG TABLET PO SCH (09:39)
[2024-02-22] MEDS: METOPROLOL SUCCINATE (ER) 25 MG TAB.ER.24H PO SCH (09:39)
[2024-02-22] MEDS: valACYclovir HCL 1,000 MG TABLET PO SCH (09:42)
[2024-02-22] MEDS: DONEPEZIL 5 MG TAB PO SCH (09:42)
[2024-02-22] MEDS: ESCITALOPRAM 5 MG TAB PO SCH (09:43)
[2024-02-22 11:06] LABS: Glucose,Whole Blood 111 mg/dL (70-110)
[2024-02-22 16:22] LABS: Glucose,Whole Blood 133 mg/dL (70-110)
[2024-02-22 20:48] LABS: Glucose,Whole Blood 101 mg/dL (70-110)
[2024-02-22 23:24] VITALS: RESP 18
[2024-02-23 05:53] LABS: Glucose,Whole Blood 113 mg/dL (70-110)
[2024-02-23 07:23] VITALS: BP 141/75; PULSE 63; TEMP 98.1
[2024-02-23 10:46] LABS: BUN/Creat Ratio 13.73 Ratio (12.00-20.00); Blood Urea Nitrogen 15.1 mg/dL (9.0-27.0); Carbon Dioxide 22.3 mmol/L (21.6-31.8); Chloride 110 mmol/L (96-109); Glucose 124 mg/dL (70-110); Potassium 4.6 mmol/L (3.5-5.5); Sodium 143 mmol/L (135-145)
[2024-02-23 10:51] LABS: HCT 37.6 % (37.2-46.3); HGB 11.8 g/dL (12.0-15.0); MCH 33.3 pg (27.0-32.0); MCHC 31.4 g/dL (32.0-37.0); MCV 106.2 FL (80.0-97.0); Mean Platelet Volume 9.8 FL (9.5-12.2); NRBC Per 100 WBC 0 X 10*3/uL (0.00-0.01); Platelet Count 284 X 10*3/uL (140-440); RBC 3.54 X 10*6/uL (4.10-5.20); RDW 14.1 % (11.5-14.5); WBC 10.07 X 10*3/uL (4.50-10.00)
[2024-02-23 11:22] LABS: Basophils # (A) 0.07 X 10*3/uL (0.00-0.10); Basophils % (A) 0.7 %; Eosinophils # (A) 0.12 X 10*3/uL (0.04-0.35); Eosinophils % (A) 1.2 %; Lymphocytes % (A) 20.9 %; Macrocytosis (M) 2+; Monocytes # (A) 0.93 X 10*3/uL (0.20-1.00); Monocytes % (A) 9.2 %; Neutrophils # (A) 6.77 X 10*3/uL (1.80-7.70); Neutrophils % (A) 67.2 %
[2024-02-23 11:31] LABS: Glucose,Whole Blood 165 mg/dL (70-110)
--- NOTE | 2024-02-23 15:38 | P.DS ---
Providers Date of admission: 02/22/24 03:08 Expected date of discharge: 02/23/24 Attending physician: Harriet Deal MD Primary care physician: Negro Fisher MD Hospital Course: Patient is a 88-year-old female with a PMH of type II DM, systolic CHF with EF 35%, A-fib on Eliquis, CKD stage III, dementia, and hypertension who was brought into the emergency room via EMS from [facility] for altered mental status. The patient who has a history of UTIs had reportedly been confused and not quite like herself of the past few days. The patient was confused at the time of interview and history thereby obtained from the chart and the ED provider. Patient does not know why she is at the hospital but states feeling okay at the time of interview. She denied any active complaints. CT brain in the emergency room was unremarkable with chest x-ray showing small left-sided pleural effusion but otherwise unremarkable. Laboratory evaluation was remarkable for leukocytosis of 12.8, MCV 105.4, sodium 136, chloride 108, CO2 21, BUN 33, creatinine 1.29, glucose 67, with an unremarkable urine toxicology Patient was admitted for further workup and management. Hypoglycemia resolved. Glimepiride discontinued. Mentation appeared back to baseline. She did have a UA showing positive nitrite with 2 WBCs. She did not report any urinary symptoms. UCx growing > 100 k gram negative bacilli. 02/22 Patient was seen and examined. No acute events overnight. CBC WBC 10.07, Hg 11.8, MCV 106.2. BMP Cl 110, glu 124. Discussed with [facility], plans for discharge home today. Prescribed Ciprofloxacin 500 mg PO QD x 3 days for uncomplicated UTI. Discontinue Glimepiride on discharge. General: non toxic, no distress, appears at stated age, overweight Derm: no unusual rashes/lesions, warm Head: atraumatic, normocephalic, symmetric Eyes: EOMI, no lid lag, anicteric sclera Mouth: no lip lesion, mucus membranes moist Cardiovascular: S1S2 reg, no murmur, no edema Lungs: CTA bilateral, no rhonchi, no rales, no accessory muscle use Ext: muscle strength 5 out of 5 in all 4 extremities grossly, no gross muscle atrophy, no contractures, Neuro: no gross focal neuro deficits Psych: Alert, oriented to person and place only, not oriented to time Discharge Diagnosis: Altered mental status, possibly secondary to hypoglycemia with history of dementia Leukocytosis, suspect due to acute stressor with no signs of active infection at this time Macrocytic anemia Type II DM Systolic CHF A-fib CKD Hypertension This complex discharge took 35 minutes to complete. Patient Condition at Discharge: Stable Plan - Discharge Summary Discharge Rx Participant: No New Discharge Prescriptions: New Ciprofloxacin HCl [Cipro] 500 mg PO DAILY 3 Days #3 tab Continue Metoprolol Succinate [Toprol XL] 25 mg PO DAILY lisinopriL [Zestril] 2.5 mg PO DAILY #30 tab Donepezil [Aricept] 5 mg PO DAILY Apixaban [Eliquis] 2.5 mg PO BID Spironolactone [Aldactone] 12.5 mg PO DAILY Furosemide [Lasix] 20 mg PO DAILY Escitalopram [Lexapro] 5 mg PO DAILY Cholestyramine (with Sugar) [Cholestyramine Packet] 4 gm PO BID Atorvastatin [Lipitor] 20 mg PO DAILY Cholecalciferol (Vitamin D3) [Vitamin D3 (1250 Mcg = 50,000 Iu)] 1,250 mcg PO ALVAREZ Ondansetron Odt [Zofran ODT] 4 mg PO Q12HR PRN PRN Reason: Nausea Loperamide [Imodium] 2 - 4 mg PO QID PRN MDD 6 caps PRN Reason: Loose Stool valACYclovir HCL [Valtrex] 1,000 mg PO DAILY Acetaminophen Tab [Tylenol] 1,000 mg PO TID PRN PRN Reason: Pain Discontinued Glimepiride [Amaryl] 2 mg PO W/BRKFST Discharge Medication List Metoprolol Succinate [Toprol XL] 25 mg PO DAILY 05/28/14 [History] lisinopriL [Zestril] 2.5 mg PO DAILY #30 tab 06/07/14 [Rx] Donepezil [Aricept] 5 mg PO DAILY 11/29/19 [History] Apixaban [Eliquis] 2.5 mg PO BID 08/12/22 [History] Acetaminophen Tab [Tylenol] 1,000 mg PO TID PRN 02/22/24 [History] Atorvastatin [Lipitor] 20 mg PO DAILY 02/22/24 [History] Cholecalciferol (Vitamin D3) [Vitamin D3 (1250 Mcg = 50,000 Iu)] 1,250 mcg PO ALVAREZ 02/22/24 [History] Cholestyramine (with Sugar) [Cholestyramine Packet] 4 gm PO BID 02/22/24 [History] Escitalopram [Lexapro] 5 mg PO DAILY 02/22/24 [History] Furosemide [Lasix] 20 mg PO DAILY 02/22/24 [History] Loperamide [Imodium] 2 - 4 mg PO QID PRN MDD 6 caps 02/22/24 [History] Ondansetron Odt [Zofran ODT] 4 mg PO Q12HR PRN 02/22/24 [History] Spironolactone [Aldactone] 12.5 mg PO DAILY 02/22/24 [History] valACYclovir HCL [Valtrex] 1,000 mg PO DAILY 02/22/24 [History] Ciprofloxacin HCl [Cipro] 500 mg PO DAILY 3 Days #3 tab 02/23/24 [Rx] Follow up Appointment(s)/Referral(s): Negro Fisher MD [Primary Care Provider] - 1-2 days (office not available at time of discharge Please call to schedule appointment ) Discharge Disposition: HOME SELF-CARE
== END 2024-02-23 14:45 | disposition home or self-care (01) ==
LOC: EC 23:51 → EDBD 23:51 → 4SSUR 02-22 03:08
PROVIDERS: ADMIT Internal Medicine; ATTEND Internal Medicine
DX: R41.82 Altered mental status, unspecified (principal); F03.90 Unspecified dementia, unspecified severity, without behavioral disturbance, psychotic disturbance, mood disturbance, and anxiety; D72.829 Elevated white blood cell count, unspecified; E11.649 Type 2 diabetes mellitus with hypoglycemia without coma; I13.0 Hypertensive heart and chronic kidney disease with heart failure and stage 1 through stage 4 chronic kidney disease, or unspecified chronic kidney disease; I50.22 Chronic systolic (congestive) heart failure; N18.30 Chronic kidney disease, stage 3 unspecified; E78.5 Hyperlipidemia, unspecified; I48.91 Unspecified atrial fibrillation; E11.22 Type 2 diabetes mellitus with diabetic chronic kidney disease; D53.9 Nutritional anemia, unspecified; Z85.3 Personal history of malignant neoplasm of breast; Z87.440 Personal history of urinary (tract) infections; Z92.3 Personal history of irradiation; Z95.810 Presence of automatic (implantable) cardiac defibrillator; Z79.01 Long term (current) use of anticoagulants; Z79.52 Long term (current) use of systemic steroids; Z79.84 Long term (current) use of oral hypoglycemic drugs; Z79.899 Other long term (current) drug therapy; Z88.0 Allergy status to penicillin; Z11.52 Encounter for screening for COVID-19
CPT/HCPCS: 99285; 36415; 93005; 80053; 80048; 84443; 82607; 82140; 82746; 83605; 84132; 84484; 85025 ×2; 85610; 85730; 81001; 87040; 80306; 80320; 87086; 87077; 87186; 87636; 71046; 70450; G0378 ×2

== ENCOUNTER 2024-05-21 02:22 | Emergency (ER) | payer OTHER ==
[2024-05-21 02:43] VITALS: TEMP 98.1
[2024-05-21 04:23] LABS: Basophils # (A) 0.1 k/uL (0-0.2); Basophils % (A) 0 %; Eosinophils # (A) 0.1 k/uL (0-0.7); Eosinophils % (A) 1 %; HCT 42.1 % (34.0-46.0); HGB 13.4 gm/dL (11.4-16.0); Lymphocytes # (A) 1.9 k/uL (1.0-4.8); Lymphocytes % (A) 15 %; MCHC 31.8 g/dL (31.0-37.0); Macrocytosis Slight; Mean Platelet Volume 7.5; Monocytes # (A) 0.9 k/uL (0-1.0); Monocytes % (A) 7 %; Neutrophils # (A) 9.5 k/uL (1.3-7.7); Neutrophils % (A) 75 %; Platelet Count 247 k/uL (150-450); RBC 4.05 m/uL (3.80-5.40); WBC 12.8 k/uL (3.8-10.6)
[2024-05-21 04:41] LABS: ALT 17 U/L (4-34); AST 23 U/L (14-36); African American GFR (CKD) 42 (>60 ml/min/1.73 sqM); Albumin 3.5 g/dL (3.5-5.0); Alkaline Phosphatase 84 U/L (38-126); Anion Gap 8 mmol/L; Blood Urea Nitrogen 21 mg/dL (7-17); Calcium 9.9 mg/dL (8.4-10.2); Carbon Dioxide 30 mmol/L (22-30); Chloride 100 mmol/L (98-107); Glucose 162 mg/dL (74-99); Non-African American GFR(CKD) 36 (>60 ml/min/1.73 sqM); Sodium 138 mmol/L (137-145); Total Bilirubin 0.8 mg/dL (0.2-1.3); Total Protein 6.4 g/dL (6.3-8.2)
[2024-05-21 04:48] LABS: NT-Pro-B-Type Natriuretic Pept 2730 pg/mL
--- NOTE | 2024-05-21 05:06 | XR ---
EXAM: XR Chest, 2 Views CLINICAL HISTORY: weakness TECHNIQUE: Frontal and lateral views of the chest. COMPARISON: [facility] - Q/R- No priors found in hospital PACS. FINDINGS: Lungs: Unremarkable. No consolidation. Pleural space: Unremarkable. Mediastinum: Cardiomegaly. Normal mediastinal contour. Bones/joints: No acute findings. Vasculature: Calcified aorta. Tubes, lines and devices: Left pacer leads are in place. Pericardium and we. IMPRESSION: No acute findings in the chest.
--- NOTE | 2024-05-21 05:40 | ED ---
Extremity Problem HPI <Francisco Knightophe - Last Filed: 05/21/24 08:16> - General Source: EMS Mode of arrival: EMS Limitations: physical limitation <Crys Yun - Last Filed: 05/30/24 16:09> - General Chief complaint: Extremity Problem,Nontraumatic Stated complaint: Swollen Arm Time Seen by Provider: 05/21/24 02:39 - History of Present Illness Initial comments: 88-year-old female presents emergency department from [facility]. Noted tonight that the patient had extreme swelling to her left arm. Daughter is at bedside and states the patient does have some swelling due to her history of congestive heart failure however this is a lot more than normal. The patient has a ring on her left finger which is now constricting her finger because of the swelling. Patient denies any pain. History of breast cancer but denies any lymph node resection from that arm. Patient denies any swelling. No trauma. Patient denies any shortness of breath. No other alleviating, precipitating mod ifying factors (Crys Yun) - Related Data Home Medications Medication Instructions Recorded Confirmed Metoprolol Succinate [Toprol XL] 25 mg PO DAILY 05/28/14 02/22/24 Donepezil [Aricept] 5 mg PO DAILY 11/29/19 02/22/24 Apixaban [Eliquis] 2.5 mg PO BID 08/12/22 02/22/24 Acetaminophen Tab [Tylenol] 1,000 mg PO TID PRN 02/22/24 02/22/24 Atorvastatin [Lipitor] 20 mg PO DAILY 02/22/24 02/22/24 Cholecalciferol (Vitamin D3) 1,250 mcg PO ALVAREZ 02/22/24 02/22/24 [Vitamin D3 (1250 Mcg = 50,000 Iu)] Cholestyramine (with Sugar) 4 gm PO BID 02/22/24 02/22/24 [Cholestyramine Packet] Escitalopram [Lexapro] 5 mg PO DAILY 02/22/24 02/22/24 Furosemide [Lasix] 20 mg PO DAILY 02/22/24 02/22/24 Loperamide [Imodium] 2 - 4 mg PO QID PRN MDD 6 caps 02/22/24 02/22/24 Ondansetron Odt [Zofran ODT] 4 mg PO Q12HR PRN 02/22/24 02/22/24 Spironolactone [Aldactone] 12.5 mg PO DAILY 02/22/24 02/22/24 valACYclovir HCL [Valtrex] 1,000 mg PO DAILY 02/22/24 02/22/24 Previous Rx's Medication Instructions Recorded lisinopriL [Zestril] 2.5 mg PO DAILY #30 tab 06/07/14 Ciprofloxacin HCl [Cipro] 500 mg PO DAILY 3 Days #3 tab 02/23/24 Allergies Allergy/AdvReac Type Severity Reaction Status Date / Time Penicillins Allergy Rash/Hives Verified 05/21/24 11:58 Review of Systems ROS Other: All systems not noted in ROS Statement are negative. <Vahe Knight - Last Filed: 05/21/24 08:16> ROS Other: All systems not noted in ROS Statement are negative. <Crys Yun - Last Filed: 05/30/24 16:09> ROS Statement: Those systems with pertinent positive or pertinent negative responses have been documented in the HPI. Past Medical History History of Any Multi-Drug Resistant Organisms: None Reported Smoking Status: Never smoker Past Alcohol Use History: None Reported Past Drug Use History: None Reported <Crys Yun - Last Filed: 05/30/24 16:09> General Exam Limitations: physical limitation General appearance: alert, in no apparent distress Head exam: Present: atraumatic, normocephalic, normal inspection Eye exam: Present: normal appearance, PERRL, EOMI. Absent: scleral icterus, conjunctival injection, periorbital swelling ENT exam: Present: normal exam, mucous membranes moist Neck exam: Present: normal inspection. Absent: tenderness, meningismus, lymphadenopathy Respiratory exam: Present: normal lung sounds bilaterally. Absent: respiratory distress, wheezes, rales, rhonchi, stridor Cardiovascular Exam: Present: regular rate, normal rhythm, normal heart sounds. Absent: systolic murmur, diastolic murmur, rubs, gallop, clicks GI/Abdominal exam: Present: soft, normal bowel sounds. Absent: distended, tenderness, guarding, rebound, rigid Extremities exam: Present: full ROM, normal capillary refill, other (Swelling from the elbow to the hand). Absent: tenderness, pedal edema, joint swelling, calf tenderness Back exam: Present: normal inspection Neurological exam: Present: alert, oriented X3, CN II-XII intact Psychiatric exam: Present: normal affect, normal mood Skin exam: Present: warm, dry, intact, normal color. Absent: rash <JamaCrys A - Last Filed: 05/30/24 16:09> Course Vital Signs 05/21/24 05/21/24 05/21/24 02:31 05:46 06:00 Temperature 98.1 F Pulse Rate 64 65 70 Respiratory 18 18 18 Rate Blood Pressure 135/62 123/80 123/80 O2 Sat by Pulse 95 93 L Oximetry 05/21/24 05/21/24 08:17 09:26 Temperature Pulse Rate 67 67 Respiratory 20 18 Rate Blood Pressure 111/67 122/84 O2 Sat by Pulse 96 96 Oximetry Medical Decision Making - Lab Data Result diagrams: 05/21/24 03:47 05/21/24 03:47 <Vahe Knight - Last Filed: 05/21/24 08:16> - Lab Data Result diagrams: 05/21/24 03:47 05/21/24 03:47 <Crys Yun - Last Filed: 05/30/24 16:09> - Medical Decision Making Ultrasound of the arm Was patient admitted / discharged? Hospital course, mention meds given and route, prescriptions, significant lab abnormalities, going to OR and other pertinent info. @ -Patient was signed out to me by Dr. Santiago at 6 AM. I went back into the room and evaluated the patient she was having no complaints and was resting comfortably. Patient's ultrasound showed no DVT Undiagnosed new problem with uncertain prognosis? @ -No Drug Therapy requiring intensive monitoring for toxicity (Heparin, Nitro, Insulin, Cardizem)? @ -No Were any procedures done? @ -No Diagnosis/symptom? @ -Arm swelling Acute, or Chronic, or Acute on Chronic? @ -Acute Uncomplicated (without systemic symptoms) or Complicated (systemic symptoms)? @ -Uncomplicated Side effects of treatment? @ -No Exacerbation, Progression, or Severe Exacerbation? @ -No Poses a threat to life or bodily function? How? (Chest pain, USA, MD, pneumonia, PE, COPD, DKA, ARF, appy, cholecystitis, CVA, Diverticulitis, Homicidal, Suicidal, threat to staff... and all critical care pts) @ -No (Vahe Knight) Was pt. sent in by a medical professional or institution (TEJAL Caraballo, RESOURCE RECOVERY SPECIALIST, urgent care, hospital, or jail...) When possible be specific @ -Patient was sent in from [facility] Did you speak to anyone other than the patient for history (EMS, parent, family, police, friend...)? What history was obtained from this source @ -I spoke with the daughter and EMS for history Did you review nursing and triage notes (agree or disagree)? Why? @ -I reviewed and agree with nursing and triage notes Were old charts reviewed (outside hosp., previous admission, EMS record, old EKG, old radiological studies, urgent care reports/EKG's, jail records)? Report findings @ -No old charts were reviewed Differential Diagnosis (chest pain, altered mental status, abdominal pain women, abdominal pain men, vaginal bleeding, weakness, fever, dyspnea, syncope, headache, dizziness, GI bleed, back pain, seizure, CVA, palpatations, mental health, musculoskeletal)? @ -CHF exacerbation, cellulitis, lymphadenopathy, DVT EKG interpreted by me (3pts min.). @ -Not done X-rays interpreted by me (1pt min.). @ -yes and demonstrates no CHF CT interpreted by me (1pt min.). @ -None done U/S interpreted by me (1pt. min.). @ -Pending at this time What testing was considered but not performed or refused? (CT, X-rays, U/S, labs)? Why? @ -None What meds were considered but not given or refused? Why? @ -None Did you discuss the management of the patient with other professionals (professionals i.e. TEJAL Caraballo, RESOURCE RECOVERY SPECIALIST, lab, RT, psych nurse, nursing home social worker, mussel farmer, teacher, house officer, caseworker protective services)? Give summary @ -With Dr. Knight who will take over care of this patient Was smoking cessation discussed for >3mins.? @ -No Was critical care preformed (if so, how long)? @ -No Were there social determinants of health that impacted care today? How? (Homelessness, low income, unemployed, alcoholism, drug addiction, transportation, low edu. Level, literacy, decrease access to med. care, longterm, rehab)? @ -No Was there de-escalation of care discussed even if they declined (Discuss DNR or withdrawal of care, Hospice)? DNR status @ -No What co-morbidities impacted this encounter? (DM, HTN, Smoking, COPD, CAD, Can cer, CVA, ARF, Chemo, Hep., AIDS, mental health diagnosis, sleep apnea, morbid obesity)? @ -Congestive heart failure Was patient admitted / discharged? Hospital course, mention meds given and route, prescriptions, significant lab abnormalities, going to OR and other pertinent info. @ -Upon arrival patient seen and evaluated in room 10. Thorough history and physical exam was performed. IV is established. Laboratory studies are conducted. Patient's ring was cut off. Ultrasound pending at this time. [facility] be [facility] - Lab Data Lab Results 05/21/24 05/21/24 05/21/24 Range/Units 03:47 03:47 03:47 WBC 12.8 H (3.8-10.6) k/uL RBC 4.05 (3.80-5.40) m/uL Hgb 13.4 (11.4-16.0) gm/dL Hct 42.1 (34.0-46.0) % MCV 104.0 H (80.0-100.0) fL MCH 33.0 (25.0-35.0) pg MCHC 31.8 (31.0-37.0) g/dL RDW 13.0 (11.5-15.5) % Plt Count 247 (150-450) k/uL MPV 7.5 Neutrophils % 75 % Lymphocytes % 15 % Monocytes % 7 % Eosinophils % 1 % Basophils % 0 % Neutrophils # 9.5 H (1.3-7.7) k/uL Lymphocytes # 1.9 (1.0-4.8) k/uL Monocytes # 0.9 (0-1.0) k/uL Eosinophils # 0.1 (0-0.7) k/uL Basophils # 0.1 (0-0.2) k/uL Macrocytosis Slight D-Dimer 0.33 (<0.60) mg/L FEU Sodium 138 (137-145) mmol/L Potassium 4.0 (3.5-5.1) mmol/L Chloride 100 (98-107) mmol/L Carbon Dioxide 30 (22-30) mmol/L Anion Gap 8 mmol/L BUN 21 H (7-17) mg/dL Creatinine 1.31 H (0.52-1.04) mg/dL Est GFR (CKD-EPI)AfAm 42 (>60 ml/min/1.73 sqM) Est GFR (CKD-EPI)NonAf 36 (>60 ml/min/1.73 sqM) Glucose 162 H (74-99) mg/dL Plasma Lactic Acid Thee (0.7-2.0) mmol/L Calcium 9.9 (8.4-10.2) mg/dL Total Bilirubin 0.8 (0.2-1.3) mg/dL AST 23 (14-36) U/L ALT 17 (4-34) U/L Alkaline Phosphatase 84 (38-126) U/L NT-Pro-B Natriuret Pep 2730 pg/mL Total Protein 6.4 (6.3-8.2) g/dL Albumin 3.5 (3.5-5.0) g/dL 05/21/24 Range/Units 03:47 WBC (3.8-10.6) k/uL RBC (3.80-5.40) m/uL Hgb (11.4-16.0) gm/dL Hct (34.0-46.0) % MCV (80.0-100.0) fL MCH (25.0-35.0) pg MCHC (31.0-37.0) g/dL RDW (11.5-15.5) % Plt Count (150-450) k/uL MPV Neutrophils % % Lymphocytes % % Monocytes % % Eosinophils % % Basophils % % Neutrophils # (1.3-7.7) k/uL Lymphocytes # (1.0-4.8) k/uL Monocytes # (0-1.0) k/uL Eosinophils # (0-0.7) k/uL Basophils # (0-0.2) k/uL Macrocytosis D-Dimer (<0.60) mg/L FEU Sodium (137-145) mmol/L Potassium (3.5-5.1) mmol/L Chloride (98-107) mmol/L Carbon Dioxide (22-30) mmol/L Anion Gap mmol/L BUN (7-17) mg/dL Creatinine (0.52-1.04) mg/dL Est GFR (CKD-EPI)AfAm (>60 ml/min/1.73 sqM) Est GFR (CKD-EPI)NonAf (>60 ml/min/1.73 sqM) Glucose (74-99) mg/dL Plasma Lactic Acid Thee 1.9 (0.7-2.0) mmol/L Calcium (8.4-10.2) mg/dL Total Bilirubin (0.2-1.3) mg/dL AST (14-36) U/L ALT (4-34) U/L Alkaline Phosphatase (38-126) U/L NT-Pro-B Natriuret Pep pg/mL Total Protein (6.3-8.2) g/dL Albumin (3.5-5.0) g/dL Disposition Is patient prescribed a controlled substance at d/c from ED?: No Time of Disposition: 08:18 <Vahe Knight - Last Filed: 05/21/24 08:16> <Crys Yun - Last Filed: 05/30/24 16:09> Clinical Impression: Arm swelling Disposition: HOME SELF-CARE Condition: Good Referrals: None,Stated [Primary Care Provider] - 1-2 days
--- NOTE | 2024-05-21 07:50 | US ---
EXAMINATION TYPE: US venous doppler duplex UE LT DATE OF EXAM: 05/21/2024 COMPARISON: US 2013 CLINICAL INDICATION: Female, 88 years old with history of hand swelling; Patient states she is taking blood thinners. No hx of DVT. Swelling. SIDE PERFORMED: Left arm Left Arm: No evidence of DVT. *Exam is limited due to patient's arm positioning and pain level. IMPRESSION: 1. No ultrasound evidence left upper extremity deep venous thrombosis. [facility], , 05/21/2024 7:47 AM
[2024-05-21 08:18] VITALS: PULSE 67
[2024-05-21 09:28] VITALS: BP 122/84; RESP 18
== END 2024-05-21 09:27 | disposition home or self-care (01) ==
LOC: MERGE 02:22 → EC 02:22
DX: M79.89 Other specified soft tissue disorders (principal)
CPT/HCPCS: 36415; 71046; 80053; 83605; 83880; 85025; 85379; 99283

== ENCOUNTER 2024-08-06 20:21 | Inpatient (IN) | payer OTHER ==
--- NOTE | 2024-08-06 21:48 | ED ---
General Adult HPI - General Chief complaint: Altered Mental Status Stated complaint: AMS Time Seen by Provider: 08/06/24 20:42 Source: EMS Mode of arrival: EMS Limitations: altered mental status - History of Present Illness Initial comments: Dictation was produced using [employer] dictation software. please excuse any grammatical, word or spelling errors. Chief Complaint: 88-year-old DNR female presents to the emergency department for altered mental status History of Present Illness: Patient is 88-year-old female lives at [facility]. Family provides history present illness. Patient's daughter at the bedside states that she received a call from [facility] stating that patient was unresponsive. Family states that patient is prone to UTIs. Patient uncooperative. The ROS documented in this emergency department record has been reviewed and confirmed by me. Those systems with pertinent positive or negative responses have been documented in the HPI. All other systems are other negative and/or noncontributory. - Related Data Home Medications Medication Instructions Recorded Confirmed Metoprolol Succinate [Toprol XL] 25 mg PO DAILY 05/28/14 02/22/24 Donepezil [Aricept] 5 mg PO DAILY 11/29/19 02/22/24 Apixaban [Eliquis] 2.5 mg PO BID 08/12/22 02/22/24 Acetaminophen Tab [Tylenol] 1,000 mg PO TID PRN 02/22/24 02/22/24 Atorvastatin [Lipitor] 20 mg PO DAILY 02/22/24 02/22/24 Cholecalciferol (Vitamin D3) 1,250 mcg PO ALVAREZ 02/22/24 02/22/24 [Vitamin D3 (1250 Mcg = 50,000 Iu)] Cholestyramine (with Sugar) 4 gm PO BID 02/22/24 02/22/24 [Cholestyramine Packet] Escitalopram [Lexapro] 5 mg PO DAILY 02/22/24 02/22/24 Furosemide [Lasix] 20 mg PO DAILY 02/22/24 02/22/24 Loperamide [Imodium] 2 - 4 mg PO QID PRN MDD 6 caps 02/22/24 02/22/24 Ondansetron Odt [Zofran ODT] 4 mg PO Q12HR PRN 02/22/24 02/22/24 Spironolactone [Aldactone] 12.5 mg PO DAILY 02/22/24 02/22/24 valACYclovir HCL [Valtrex] 1,000 mg PO DAILY 02/22/24 02/22/24 Previous Rx's Medication Instructions Recorded lisinopriL [Zestril] 2.5 mg PO DAILY #30 tab 06/07/14 Ciprofloxacin HCl [Cipro] 500 mg PO DAILY 3 Days #3 tab 02/23/24 Allergies Allergy/AdvReac Type Severity Reaction Status Date / Time Penicillins Allergy Rash/Hives Verified 08/06/24 20:56 Review of Systems ROS Statement: Those systems with pertinent positive or pertinent negative responses have been documented in the HPI. ROS Other: All systems not noted in ROS Statement are negative. Past Medical History Past Medical History: Atrial Fibrillation, Cancer, Heart Failure, Dementia, Diabetes Mellitus, Eye Disorder, Hyperlipidemia, Hypertension Additional Past Medical History / Comment(s): GLAUCOMA, DIET CONTROLLED DIABETIC,.ARTHRITIS, HX BREAST CANCER WITH RADIATION (2010), SEE DR CARTY H & P., SHORT TERM MEMORY LOSS., WEARS DEPENDS. History of Any Multi-Drug Resistant Organisms: None Reported Past Surgical History: AICD, Heart Catheterization, Hysterectomy, Pacemaker Additional Past Surgical History / Comment(s): LT CATARACT REMOVED, LUMPECTOMY RT BREAST, THORACENTESIS & PERICARDIAL WINDOW. Past Anesthesia/Blood Transfusion Reactions: No Reported Reaction Type of Cardiac Device: Permanent Pacemaker, AICD Device Placement Date:: 10-08-2013 Past Psychological History: No Psychological Hx Reported, Unable to Obtain Past Alcohol Use History: Daily, None Reported - Past Family History Father Additional Family Medical History / Comment(s): IN HIS 70'S FROM A STROKE Mother Family Medical History: CVA/TIA, Diabetes Mellitus Additional Family Medical History / Comment(s): IN HER 80'S STROKE/ COMPICATIONS FROM DIABETES General Exam - General Exam Comments Initial Comments: PHYSICAL EXAM: General Impression: not in acute distress, uncooperative HEENT: Normocephalic atraumatic, extra-ocular movements intact, pupils equal and reactive to light bilaterally, mucous membranes moist. Cardiovascular: Heart regular rate and rhythm Chest: Mildly dyspneic, no retractions, no tachypnea Abdomen: abdomen soft, non-tender, non-distended, no organomegaly Musculoskeletal: Pulses present and equal in all extremities, no peripheral edema Motor: Strength of extremities grossly Neurological: CN II-XII grossly intact Skin: Intact with no visualized rashes Limitations: altered mental status Course Vital Signs 08/06/24 08/06/24 20:41 23:00 Temperature 97.5 F L 97.9 F Pulse Rate 53 L 57 L Respiratory 25 H 16 Rate Blood Pressure 136/81 141/67 O2 Sat by Pulse 93 L 95 Oximetry EKG Findings - EKG Comments: EKG Findings:: My EKG interpretation: Ventricular rate 49, bradycardia, interpretation difficult due to artifact.. Likely pacer spike. QRS 87, QTc 430 . Overall this EKG is nonspecific. Medical Decision Making - Medical Decision Making Was pt. sent in by a medical professional or institution (, PA, BUSINESS EXCELLENCE LEADER, urgent care, hospital, or senior living...) When possible be specific @ -No Did you speak to anyone other than the patient for history (EMS, parent, family, police, friend...)? What history was obtained from this source @ -Spoke with daughter as described above Did you review nursing and triage notes (agree or disagree)? Why? @ -I reviewed and agree with nursing and triage notes Were old charts reviewed (outside hosp., previous admission, EMS record, old EKG, old radiological studies, urgent care reports/EKG's, senior living records)? Report findings @ -No old charts were reviewed Differential Diagnosis (chest pain, altered mental status, abdominal pain women, abdominal pain men, vaginal bleeding, musculoskeletal, weakness, fever, dyspnea, syncope, headache, dizziness, GI bleed, back pain, seizure, CVA, palpatations, mental health)? @ -Differential Altered Mental Status: Hypoglycemia, DKA, hypercapnia, ETOH, overdose, CO poisoning, trauma, myxedema coma, HTN encephalopathy, infection, encephalitis, psychosis, intercranial hemorrhage, hepatic encephalopathy, meningitis, CVA, this is not meant to be an all-inclusive list EKG interpreted by me (3pts min.). @ -See above X-rays interpreted by me (1pt min.). @ -Chest x-ray shows no acute processes CT interpreted by me (1pt min.). @ -CT brain is nonacute U/S interpreted by me (1pt. min.). @ -None done What testing was considered but not performed or refused? (CT, X-rays, U/S, labs)? Why? @ -None What meds were considered but not given or refused? Why? @ -None Was smoking cessation discussed for >3mins.? @ -No Were there social determinants of health that impacted care today? How? (Homelessness, low income, unemployed, alcoholism, drug addiction, transportation, low edu. Level, literacy, decrease access to med. care, detention, rehab)? @ -No Was there de-escalation of care discussed even if they declined (Discuss DNR or withdrawal of care, Hospice)? DNR status @ -Patient currently DNR What co-morbidities impacted this encounter? (DM, HTN, Smoking, COPD, CAD, Cancer, CVA, ARF, Chemo, Hep., AIDS, mental health diagnosis, sleep apnea, morbid obesity)? @ -None Was patient admitted / discharged? Hospital course, mention meds given and route, prescriptions, significant lab abnormalities, going to OR and other pertinent info. @ -80-year-old female presents emergency department altered mental status. Vital signs stable. Patient no acute distress initially uncooperative. Laboratory evaluation obtained. Patient has UTI. Blood labs are negative. Previous microbiology results were reviewed. Patient has most recently Klebsiella pneumonia in her urine that was broadly sensitive. Patient given ceftriaxone. Patient be admitted. Case discussed with hospitalist for admission. Did you discuss the management of the patient with other professionals (professionals i.e. , PA, BUSINESS EXCELLENCE LEADER, lab, RT, psych nurse, geriatric social worker, credit associate, teacher, community reinvestment act officer, caseworker intake)? Give summary @ -See above Was critical care preformed (if so, how long)? @ -No Undiagnosed new problem with uncertain prognosis? @ -No Drug Therapy requiring intensive monitoring for toxicity (Heparin, Nitro, Insulin, Cardizem)? @ -No Were any procedures done? @ -No Diagnosis/symptom? Acute, or Chronic, or Acute on Chronic? Uncomplicated (without systemic symptoms) or Complicated (systemic symptoms)? @ -UTI complicated by altered mental status Side effects of treatment? @ -No Exacerbation, Progression, or Severe Exacerbation? @ -No Poses a threat to life or bodily function? How? (Chest pain, USA, LA, pneumonia, PE, COPD, DKA, ARF, appy, cholecystitis, CVA, Diverticulitis, Homicidal, Suicidal, threat to staff... and all critical care pts) @ -Yes - Lab Data Result diagrams: 08/06/24 21:55 08/06/24 21:55 Lab Results 08/06/24 08/06/24 08/06/24 Range/Units 21:55 21:55 21:55 WBC 10.7 H (3.8-10.6) k/uL RBC 3.68 L (3.80-5.40) m/uL Hgb 12.4 (11.4-16.0) gm/dL Hct 37.9 (34.0-46.0) % MCV 103.0 H (80.0-100.0) fL MCH 33.8 (25.0-35.0) pg MCHC 32.9 (31.0-37.0) g/dL RDW 13.2 (11.5-15.5) % Plt Count 294 (150-450) k/uL MPV 7.1 Neutrophils % 56 % Lymphocytes % 29 % Monocytes % 9 % Eosinophils % 2 % Basophils % 1 % Neutrophils # 6.0 (1.3-7.7) k/uL Lymphocytes # 3.1 (1.0-4.8) k/uL Monocytes # 0.9 (0-1.0) k/uL Eosinophils # 0.2 (0-0.7) k/uL Basophils # 0.1 (0-0.2) k/uL Macrocytosis Slight PT 10.2 (10.0-12.5) sec INR 0.9 (<1.2) APTT 23.4 (22.0-30.0) sec Sodium 138 (137-145) mmol/L Potassium 4.0 (3.5-5.1) mmol/L Chloride 105 (98-107) mmol/L Carbon Dioxide 26 (22-30) mmol/L Anion Gap 7 mmol/L BUN 20 H (7-17) mg/dL Creatinine 1.21 H (0.52-1.04) mg/dL Est GFR (CKD-EPI)AfAm 46 (>60 ml/min/1.73 sqM) Est GFR (CKD-EPI)NonAf 40 (>60 ml/min/1.73 sqM) Glucose 114 H (74-99) mg/dL Plasma Lactic Acid Thee (0.7-2.0) mmol/L Calcium 9.3 (8.4-10.2) mg/dL Magnesium 1.7 (1.6-2.3) mg/dL Total Bilirubin 0.4 (0.2-1.3) mg/dL AST 17 (14-36) U/L ALT 11 (4-34) U/L Alkaline Phosphatase 73 (38-126) U/L Troponin I (0.000-0.034) ng/mL Total Protein 6.4 (6.3-8.2) g/dL Albumin 3.3 L (3.5-5.0) g/dL Urine Color Urine Appearance (Clear) Urine pH (5.0-8.0) Ur Specific Carnegie (1.001-1.035) Urine Protein (Negative) Urine Glucose (UA) (Negative) Urine Ketones (Negative) Urine Blood (Negative) Urine Nitrite (Negative) Urine Bilirubin (Negative) Urine Urobilinogen (<2.0) mg/dL Ur Leukocyte Esterase (Negative) Urine RBC (0-5) /hpf Urine WBC (0-5) /hpf Urine WBC Clumps (None) /hpf Ur Squamous Epith Cells (0-4) /hpf Amorphous Sediment (None) /hpf Urine Bacteria (None) /hpf Hyaline Casts (0-2) /lpf Urine Mucus (None) /hpf 08/06/24 08/06/24 08/06/24 Range/Units 21:55 21:55 22:55 WBC (3.8-10.6) k/uL RBC (3.80-5.40) m/uL Hgb (11.4-16.0) gm/dL Hct (34.0-46.0) % MCV (80.0-100.0) fL MCH (25.0-35.0) pg MCHC (31.0-37.0) g/dL RDW (11.5-15.5) % Plt Count (150-450) k/uL MPV Neutrophils % % Lymphocytes % % Monocytes % % Eosinophils % % Basophils % % Neutrophils # (1.3-7.7) k/uL Lymphocytes # (1.0-4.8) k/uL Monocytes # (0-1.0) k/uL Eosinophils # (0-0.7) k/uL Basophils # (0-0.2) k/uL Macrocytosis PT (10.0-12.5) sec INR (<1.2) APTT (22.0-30.0) sec Sodium (137-145) mmol/L Potassium (3.5-5.1) mmol/L Chloride (98-107) mmol/L Carbon Dioxide (22-30) mmol/L Anion Gap mmol/L BUN (7-17) mg/dL Creatinine (0.52-1.04) mg/dL Est GFR (CKD-EPI)AfAm (>60 ml/min/1.73 sqM) Est GFR (CKD-EPI)NonAf (>60 ml/min/1.73 sqM) Glucose (74-99) mg/dL Plasma Lactic Acid Thee 1.4 (0.7-2.0) mmol/L Calcium (8.4-10.2) mg/dL Magnesium (1.6-2.3) mg/dL Total Bilirubin (0.2-1.3) mg/dL AST (14-36) U/L ALT (4-34) U/L Alkaline Phosphatase (38-126) U/L Troponin I 0.016 (0.000-0.034) ng/mL Total Protein (6.3-8.2) g/dL Albumin (3.5-5.0) g/dL Urine Color Yellow Urine Appearance Turbid H (Clear) Urine pH 6.5 (5.0-8.0) Ur Specific Carnegie 1.025 (1.001-1.035) Urine Protein 2+ H (Negative) Urine Glucose (UA) Negative (Negative) Urine Ketones Trace H (Negative) Urine Blood Large H (Negative) Urine Nitrite Positive H (Negative) Urine Bilirubin Negative (Negative) Urine Urobilinogen <2.0 (<2.0) mg/dL Ur Leukocyte Esterase Large H (Negative) Urine RBC 30 H (0-5) /hpf Urine WBC 128 H (0-5) /hpf Urine WBC Clumps Many H (None) /hpf Ur Squamous Epith Cells 3 (0-4) /hpf Amorphous Sediment Moderate H (None) /hpf Urine Bacteria Many H (None) /hpf Hyaline Casts 14 H (0-2) /lpf Urine Mucus Many H (None) /hpf Disposition Clinical Impression: UTI (urinary tract infection) Disposition: ADMITTED IP TO THIS HOSP Condition: Fair Referrals: Negro iFsher MD [Primary Care Provider] - 1-2 days Decision Time: 00:02
[2024-08-06 22:08] LABS: Basophils # (A) 0.1 k/uL (0-0.2); Basophils % (A) 1 %; Eosinophils # (A) 0.2 k/uL (0-0.7); Eosinophils % (A) 2 %; HCT 37.9 % (34.0-46.0); HGB 12.4 gm/dL (11.4-16.0); Lymphocytes # (A) 3.1 k/uL (1.0-4.8); Lymphocytes % (A) 29 %; MCH 33.8 pg (25.0-35.0); MCHC 32.9 g/dL (31.0-37.0); Macrocytosis Slight; Mean Platelet Volume 7.1; Monocytes # (A) 0.9 k/uL (0-1.0); Monocytes % (A) 9 %; Neutrophils % (A) 56 %; Platelet Count 294 k/uL (150-450); RBC 3.68 m/uL (3.80-5.40); RDW 13.2 % (11.5-15.5); WBC 10.7 k/uL (3.8-10.6)
[2024-08-06 22:22] LABS: ALT 11 U/L (4-34); AST 17 U/L (14-36); African American GFR (CKD) 46 (>60 ml/min/1.73 sqM); Albumin 3.3 g/dL (3.5-5.0); Alkaline Phosphatase 73 U/L (38-126); Anion Gap 7 mmol/L; Blood Urea Nitrogen 20 mg/dL (7-17); Calcium 9.3 mg/dL (8.4-10.2); Carbon Dioxide 26 mmol/L (22-30); Chloride 105 mmol/L (98-107); Glucose 114 mg/dL (74-99); Magnesium 1.7 mg/dL (1.6-2.3); Non-African American GFR(CKD) 40 (>60 ml/min/1.73 sqM); Sodium 138 mmol/L (137-145); Total Bilirubin 0.4 mg/dL (0.2-1.3); Total Protein 6.4 g/dL (6.3-8.2)
[2024-08-06 22:24] LABS: INR 0.9 (<1.2); Partial Thromboplastin Time 23.4 sec (22.0-30.0); Prothrombin Time 10.2 sec (10.0-12.5)
[2024-08-06 23:19] LABS: Amorphous Sediment,Urine Moderate /hpf; Appearance,Urine Turbid (Clear); Bacteria,Urine Many /hpf; Bilirubin,Urine Negative (Negative); Blood,Urine Large (Negative); Color,Urine Yellow; Glucose,Urine (UA) Negative (Negative); Hyaline Casts,Urine 14 /lpf (0-2); Ketones,Urine Trace (Negative); Leukocyte Esterase,Urine Large (Negative); Mucus,Urine Many /hpf; Nitrite,Urine Positive (Negative); PH, Urine 6.5 (5.0-8.0); Protein,Urine 2+ (Negative); RBC,Urine 30 /hpf (0-5); Squamous Epithelial Cell,Urine 3 /hpf (0-4); Urobilinogen,Urine <2.0 mg/dL (<2.0); WBC,Urine 128 /hpf (0-5)
--- NOTE | 2024-08-06 23:19 | CT ---
EXAM: CT Head Without Intravenous Contrast CLINICAL HISTORY: ITS.REASON CT Reason: ams TECHNIQUE: Axial computed tomography images of the head/brain without intravenous contrast. CTDI is 49.2 mGy and DLP is 1037.4 mGy-cm. This CT exam was performed using one or more of the following dose reduction techniques: automated exposure control, adjustment of the mA and/or kV according to patient size, and/or use of iterative reconstruction technique. COMPARISON: Head CT 02/22/24. FINDINGS: Brain: No mass effect or acute infarct. No acute hemorrhage. Moderate atrophy and chronic white matter disease, stable. Ventricles: No hydrocephalus or midline shift. Bones/joints: No skull fracture. Soft tissues: No scalp hematoma. Visualized Sinuses: Clear. Mastoid air cells: No mastoid effusion. IMPRESSION: 1. Stable age-related findings. 2. No acute infarct, bleed, or acute intracranial abnormality.
[2024-08-06 23:20] LABS: Specific Gravity,Urine 1.025 (1.001-1.035)
--- NOTE | 2024-08-06 23:23 | XR ---
EXAM: XR Chest, 2 Views CLINICAL HISTORY: ITS.REASON XR Reason: ams TECHNIQUE: Frontal and lateral views of the chest. Mild limited detail due to body habitus. COMPARISON: Chest x-ray 05/21/24. FINDINGS: Lungs: Grossly clear, Limited evaluation retrocardiac region due to cardiomegaly and pacemaker. No consolidation. Pleural space: No pneumothorax. Heart: Pacemaker power pack left mid chest. Severe cardiomegaly, stable. Mediastinum: Unremarkable. Bones/Soft Tissues: No acute abnormality. IMPRESSION: 1. Pacemaker and cardiomegaly, stable. 2. No definite acute process or interval change, with limited evaluation left lower lobe lung due to cardiomegaly and body habitus.
[2024-08-06] MEDS: cefTRIAXone IN SWFI 1,000 MG/10 ML SYRINGE IVP STA (23:29)
[2024-08-06] MEDS ORDERED: NALOXONE 0.4 MG/ML 1 ML VIAL IV PRN (23:46)
[2024-08-06] MEDS ORDERED: ACETAMINOPHEN TAB 325 MG TAB PO PRN (23:55)
[2024-08-07] MEDS: SODIUM CHLORIDE 0.9% 1,000 ML IV SCH ×2 (00:13→08:11)
--- NOTE | 2024-08-07 02:30 | P.HPIM ---
History of Present Illness H&P Date: 08/06/24 Chief Complaint: UTI and Confusion Patient is a 88-year-old female with past medical history of atrial fibrillation (on Eliquis), breast cancer (dx 2010, s/p radiation), systolic CHF (EF 20-25% on echo from 2013, s/p AICD placement) , dementia, recurrent UTis, diabetes melli tus, hyperlipidemia, hypertension was brought to the emergency department with altered mental status and unresponsiveness. Patient is a resident at [facility]. Her daughter is at bedside stated that she received a call from [facility] stating patient was unresponsive. Patient was reporetedly not eating/bathing/talking, and appeared confused which was not her baseline. Patient's baseline is usually more alert although patient does have a history of dementia. I contacted [facility] and the alteration tailor apprentice reported that patient was behaving normally around dinnertime and nurse aides found her confused and less responsive around 8 PM which resulted in a call to her daughter. Patient d id not sustain any falls or loss of consciousness earlier this evening. Patient has had a problem with recurrent UTIs since she started living at [facility]. Patient denied fever, chills, nausea, vomiting, diarrhea, constipation, dysuria during our assessment. She reported no active complaints although did not know why she was at the hospital. ED documentation reviewed. In the ED patient was treated with a single dose of 1000 mg ceftriaxone. Vitals on admission temperature 97.9, heart rate 57, respiratory rate 16, blood pressure 141/67, 95% oxygen saturation on room air EKG independently interpreted as ventricular rate of 49, bradycardia CXR shows pacemaker and cardiomegaly, stable. No definite acute process or interval change, with limited evaluation left lower lobe lung due to ca rdiomegaly and body habitus CT of head shows stable findings, no acute infarct, bleed, or acute intracranial abnormality Labs on admission show white blood count of 10.7, hemoglobin 12.4, hematocrit 3 7.9, platelet 103, PT 10.2, PTT 23.4, INR 0.9, sodium 138, potassium 4.0, chloride 105, carbon dioxide 26, BUN 20, creatinine 1.21, glucose 114 UA shows positive nitrates, large leukocyte esterase, 2+ protein, 30 RBC Review of systems: Pertinent positives and negatives as discussed in HPI, a complete review of systems was performed and all other systems are negative. PMH: atrial fibrillation, cancer, heart failure, dementia, diabetes mellitus, hyperlipidemia, hypertension PSH: AICD, heart cath, hysterectomy, pacemaker FMH: History of stroke in mother and father Allergies: Penicillins Social history: Alcohol: None reported Travel: No travel history Sick contacts: No recent sick contacts Physical examination: Vital signs reviewed General: nontoxic, no distress, appears at stated age, obese Derm: warm, dry, intact Head: atraumatic, normocephalic, symmetric Eyes: EOMI, anicteric sclera Mouth: no lip lesion, mucus membranes moist Cardiovascular: S1 S2 reg, no murmur Lungs: CTA bilateral, no rhonchi, no rales, no accessory muscle use Abdominal: soft, non-tender to palpation Extremities: No cyanosis, clubbing, or pedal edema. Neuro: Alert, oriented to person and partially to place, not oriented to time, Gross neurological examination did not reveal any focal deficits. 4 out of 5 upper extremity and lower extremity strength bilaterally. Intact peripheral sensation. CN II-XII intact Psych: appropriate affect Assessment/Plan: Patient is a 88-year-old female with past medical history of atrial fibrillation (on Eliquis), breast cancer (dx 2010, s/p radiation), systolic CHF (EF 20-25% on echo from 2013, s/p AICD placement) , dementia, recurrent UTis, diabetes mellitus, hyperlipidemia, hypertension was brought to the emergency department with altered mental status and unresponsiveness. She has been admitted to inpatient medicine service. Active: #. Altered mental status likely secondary to urinary tract infection Patient has hx of recurrent episodes of UTI Urinalysis showed positive nitrates, large leukocyte esterase S/p Ceftriaxone 1000 mg at 11 PM Start scheduled Rocephin 08/07 @9PM F/u urine culture Fall precautions PT consult # AN, likely due to UTI -Judicious use of IVFs in setting of significant CHF history -Monitor BMP -Hold patients home Aldactone, Lasix, and Lisinopril for now #. Leukocytosis Likely due to underlying urinary tract infection CBC in a.m. Chronic conditions: #. Hypertension Restart home medications #. Atrial fibrillation Restart home med including metoprolol succinate 25 mg p.o. daily, apixaban 2.5 mg p.o. twice daily #. Heart failure Hold shelia Aldactone, furosemide, lisinopril in setting of AN. Resume metoprolol #. Hyperlipidemia Restart Lipitor #. Type 2 DM Insulin sliding scale with blood glucose monitoring Restart home medications once pharmacy has confirmed with patient F: None E: Replete as required N: Heart healthy diet A: EMS DVT prophylaxis: Heparin subq The patient is admitted with an anticipated more than 2 midnight stay for evaluation of altered mental status CODE STATUS: No code (Patient has prior documentation stating she is a No-Code) Discussed with: Dr. Deal Anticipated discharge place: [facility] Past Medical History Past Medical History: Atrial Fibrillation, Cancer, Heart Failure, Dementia, Diabetes Mellitus, Eye Disorder, Hyperlipidemia, Hypertension Additional Past Medical History / Comment(s): GLAUCOMA, DIET CONTROLLED DIABETIC,.ARTHRITIS, HX BREAST CANCER WITH RADIATION (2010), SEE DR CARTY H & PSunday, SHORT TERM MEMORY LOSS., WEARS DEPENDS. History of Any Multi-Drug Resistant Organisms: None Reported Past Surgical History: AICD, Heart Catheterization, Hysterectomy, Pacemaker Additional Past Surgical History / Comment(s): LT CATARACT REMOVED, LUMPECTOMY RT BREAST, THORACENTESIS & PERICARDIAL WINDOW. Past Anesthesia/Blood Transfusion Reactions: No Reported Reaction Type of Cardiac Device: Permanent Pacemaker, AICD Device Placement Date:: 10-08-2013 Past Psychological History: No Psychological Hx Reported, Unable to Obtain Past Alcohol Use History: Daily, None Reported - Past Family History Father Additional Family Medical History / Comment(s): IN HIS 70'S FROM A STROKE Mother Family Medical History: CVA/TIA, Diabetes Mellitus Additional Family Medical History / Comment(s): IN HER 80'S STROKE/ COMPIC ATIONS FROM DIABETES Medications and Allergies Home Medications Medication Instructions Recorded Confirmed Type Metoprolol Succinate [Toprol XL] 25 mg PO DAILY 05/28/14 02/22/24 History lisinopriL [Zestril] 2.5 mg PO DAILY #30 tab 06/07/14 02/22/24 Rx Donepezil [Aricept] 5 mg PO DAILY 11/29/19 02/22/24 History Apixaban [Eliquis] 2.5 mg PO BID 08/12/22 02/22/24 History Acetaminophen Tab [Tylenol] 1,000 mg PO TID PRN 02/22/24 02/22/24 History Atorvastatin [Lipitor] 20 mg PO DAILY 02/22/24 02/22/24 History Cholecalciferol (Vitamin D3) 1,250 mcg PO ALVAREZ 02/22/24 02/22/24 History [Vitamin D3 (1250 Mcg = 50,000 Iu)] Cholestyramine (with Sugar) 4 gm PO BID 02/22/24 02/22/24 History [Cholestyramine Packet] Escitalopram [Lexapro] 5 mg PO DAILY 02/22/24 02/22/24 History Furosemide [Lasix] 20 mg PO DAILY 02/22/24 02/22/24 History Loperamide [Imodium] 2 - 4 mg PO QID PRN MDD 6 caps 02/22/24 02/22/24 History Ondansetron Odt [Zofran ODT] 4 mg PO Q12HR PRN 02/22/24 02/22/24 History Spironolactone [Aldactone] 12.5 mg PO DAILY 02/22/24 02/22/24 History valACYclovir HCL [Valtrex] 1,000 mg PO DAILY 02/22/24 02/22/24 History Ciprofloxacin HCl [Cipro] 500 mg PO DAILY 3 Days #3 tab 02/23/24 Rx Allergies Allergy/AdvReac Type Severity Reaction Status Date / Time Penicillins Allergy Rash/Hives Verified 08/06/24 20:56 Physical Exam Vitals: Vital Signs Temp Pulse Resp BP Pulse Ox 08/06/24 23:00 97.9 F 57 L 16 141/67 95 08/06/24 20:41 97.5 F L 53 L 25 H 136/81 93 L Intake and Output 08/06/24 08/06/24 08/07/24 14:59 22:59 06:59 Other: Weight 79.379 kg Results CBC & Chem 7: 08/06/24 21:55 08/06/24 21:55 Labs: Abnormal Lab Results - Last 24 Hours (Table) 08/06/24 08/06/24 08/06/24 Range/Units 21:55 21:55 22:55 WBC 10.7 H (3.8-10.6) k/uL RBC 3.68 L (3.80-5.40) m/uL MCV 103.0 H (80.0-100.0) fL BUN 20 H (7-17) mg/dL Creatinine 1.21 H (0.52-1.04) mg/dL Glucose 114 H (74-99) mg/dL Albumin 3.3 L (3.5-5.0) g/dL Urine Appearance Turbid H (Clear) Urine Protein 2+ H (Negative) Urine Ketones Trace H (Negative) Urine Blood Large H (Negative) Urine Nitrite Positive H (Negative) Ur Leukocyte Esterase Large H (Negative) Urine RBC 30 H (0-5) /hpf Urine WBC 128 H (0-5) /hpf Urine WBC Clumps Many H (None) /hpf Amorphous Sediment Moderate H (None) /hpf Urine Bacteria Many H (None) /hpf Hyaline Casts 14 H (0-2) /lpf Urine Mucus Many H (None) /hpf
[2024-08-07] MEDS ORDERED: DEXTROSE 50% SYRINGE 50 ML IVP PRN ×2 (03:19)
[2024-08-07 06:59] LABS: Glucose,Whole Blood 171 mg/dL (70-110)
[2024-08-07] MEDS: INSULIN ASPART (NovoLOG) 100 UNIT/ML VIAL SQ SCH (07:08)
[2024-08-07] MEDS ORDERED: HEPARIN SODIUM,PORCINE 5,000 UNIT/ML 1 ML VIAL SQ SCH (08:00)
[2024-08-07] MEDS ORDERED: cefTRIAXone IN SWFI 1,000 MG/10 ML SYRINGE IVP SCH (09:00)
[2024-08-07 11:09] LABS: Glucose,Whole Blood 130 mg/dL (70-110)
[2024-08-07 12:50] LABS: Basophils # (A) 0.1 k/uL (0-0.2); Basophils % (A) 1 %; Eosinophils # (A) 0.2 k/uL (0-0.7); Eosinophils % (A) 2 %; HCT 38.6 % (34.0-46.0); HGB 12.4 gm/dL (11.4-16.0); Lymphocytes % (A) 21 %; MCHC 32.1 g/dL (31.0-37.0); Macrocytosis Slight; Mean Platelet Volume 7.4; Monocytes # (A) 0.7 k/uL (0-1.0); Monocytes % (A) 7 %; Neutrophils # (A) 6.3 k/uL (1.3-7.7); Neutrophils % (A) 66 %; Platelet Count 293 k/uL (150-450); RBC 3.75 m/uL (3.80-5.40); RDW 13.6 % (11.5-15.5); WBC 9.6 k/uL (3.8-10.6)
[2024-08-07 13:03] LABS: African American GFR (CKD) 57 (>60 ml/min/1.73 sqM); Anion Gap 7 mmol/L; Blood Urea Nitrogen 18 mg/dL (7-17); Calcium 8.8 mg/dL (8.4-10.2); Carbon Dioxide 24 mmol/L (22-30); Chloride 107 mmol/L (98-107); Glucose 99 mg/dL (74-99); Non-African American GFR(CKD) 50 (>60 ml/min/1.73 sqM); Potassium 4.1 mmol/L (3.5-5.1); Sodium 138 mmol/L (137-145)
--- NOTE | 2024-08-07 13:30 | P.PN ---
Subjective Progress Note Date: 08/07/24 Patient is a 88-year-old female with past medical history of atrial fibrillation (on Eliquis), breast cancer (dx 2010, s/p radiation), systolic CHF (EF 20-25% on echo from 2013, s/p AICD placement) , dementia, recurrent UTis, diabetes mellitus, hyperlipidemia, hypertension was brought to the emergency department with altered mental status and unresponsiveness. Patient is a resident at [facility]. Her daughter is at bedside stated that she received a call from [facility] stating patient was unresponsive. Patient was reporetedly not eating/bathing/talking, and appeared confused which was not her baseline. Patient's baseline is usually more alert although patient does have a history of dementia. I contacted [facility] and the parts analyst reported that patient was behaving normally around dinnertime and nurse aides found her confused and less responsive around 8 PM which resulted in a call to her daughter. Patient did not sustain any falls or loss of consciousness earlier this evening. Patient has had a problem with recurrent UTIs since she started living at [facility]. Patient denied fever, chills, nausea, vomiting, diarrhea, constipation, dysuria during our assessment. She reported no active complaints although did not know why she was at the hospital. ED documentation reviewed. In the ED patient was treated with a single dose of 1000 mg ceftriaxone. Vitals on admission temperature 97.9, heart rate 57, respiratory rate 16, blood pressure 141/67, 95% oxygen saturation on room air EKG independently interpreted as ventricular rate of 49, bradycardia CXR shows pacemaker and cardiomegaly, stable. No definite acute process or interval change, with limited evaluation left lower lobe lung due to cardiomegaly and body habitus CT of head shows stable findings, no acute infarct, bleed, or acute intracranial abnormality Labs on admission show white blood count of 10.7, hemoglobin 12.4, hematocrit 37.9, platelet 103, PT 10.2, PTT 23.4, INR 0.9, sodium 138, potassium 4.0, chloride 105, carbon dioxide 26, BUN 20, creatinine 1.21, glucose 114 UA shows positive nitrates, large leukocyte esterase, 2+ protein, 30 RBC 08/24/2024 patient seen and examined at bedside. Patient reported no new complaints. No acute events overnight. WBC 9.6 hemoglobin 12.4 platelet count 293,000 sodium 138 potassium 4.1 BUN 18 creatinine 1.0 continue calcium 8.8 Review of systems: Pertinent positives and negatives as discussed in HPI, a complete review of systems was performed and all other systems are negative. Pertinent imaging and labs reviewed. Physical examination: Vital signs reviewed General: non toxic, no distress, appears at stated age Derm: no unusual rashes/lesions, warm Head: atraumatic, normocephalic, symmetric Eyes: EOMI, anicteric sclera, pupils equal round reactive to light ENT: Nose and ears atraumatic Neck: No cervical lymphadenopathy, trachea midline, supple Mouth: no lip lesion, mucus membranes moist Cardiovascular: S1S2 reg, no murmur Lungs: CTA bilateral, no rhonchi, no rales, no accessory muscle use Abdominal: soft, nontender to palpation, no guarding Ext: muscle strength 5 out of 5 in all 4 extremities grossly, no gross muscle atrophy, no contractures, positive dorsalis pedis pulse bilateral, no edema Neuro: CN II-XI grossly intact, no gross focal neuro deficits Psych: Alert and oriented only to place and self, appropriate affect and mood Assessment/Plan: Patient is a 88-year-old female with past medical history of atrial fibrillation (on Eliquis), breast cancer (dx 2010, s/p radiation), systolic CHF (EF 20-25% on echo from 2013, s/p AICD placement) , dementia, recurrent UTis, diabetes mellitus, hyperlipidemia, hypertension was brought to the emergency department with altered mental status and unresponsiveness. She has been admitted to inpatient medicine service. Active: #. Acute encephalopathy secondary to urinary tract infection Patient has hx of recurrent episodes of UTI Urinalysis showed positive nitrates, large leukocyte esterase Continue Rocephin 1g IVPB daily F/u urine culture Fall precautions PT consult # AN, due to UTI, resolved -BUN 18 creatinine 1.02 -IVF normal saline 0.9% 50 cc/h. Judicious use of IVFs in setting of significant CHF history -Monitor BMP -Hold patients home Aldactone and Lasix due . Reevaluate tomorrow #. Leukocytosis, resolved -WBC 9.6 Chronic conditions: #. Hypertension Restart home medications #. Atrial fibrillation Restart home med including metoprolol succinate 25 mg p.o. daily, apixaban 2.5 mg p.o. twice daily #. Heart failure Hold shelia Aldactone, furosemide due to borderline BP for today. Resume metoprolol #. Hyperlipidemia Restart Lipitor #. Type 2 DM Insulin sliding scale with blood glucose monitoring Restart home medications once pharmacy has confirmed with patient F: None E: Replete as required N: Heart healthy diet A: Support with ambulation DVT prophylaxis: SCDs Michelle Robertson MD PGY-1/[employer] Dictation was produced using [employer] dictation software. please excuse any grammatical, word or spelling errors. I saw and evaluated the patient during the lima and critical portions of this encounter, and discussed the case in detail with the resident author of this note, I agree with the Assessment and Plan, and my changes, if any, are noted below. Continue Rocephin. Follow UCx. Restart antihypertensive medication tomorrow if BP permits. Objective - Vital Signs Vital signs: Vital Signs Temp 97.7 F 08/07/24 01:36 Pulse 57 L 08/07/24 01:36 Resp 17 08/07/24 01:36 BP 117/76 08/07/24 01:36 Pulse Ox 94 L 08/07/24 01:36 FiO2 Intake & Output 08/06/24 08/07/24 08/07/24 18:59 06:59 18:59 Intake Total 540 Balance 540 Weight 79.379 kg Intake: Oral 540 Other: # Voids 2 - Labs CBC & Chem 7: 08/07/24 12:34 08/07/24 12:34 Labs: Abnormal Lab Results - Last 24 Hours (Table) 08/06/24 08/06/24 08/06/24 Range/Units 21:55 21:55 22:55 WBC 10.7 H (3.8-10.6) k/uL RBC 3.68 L (3.80-5.40) m/uL MCV 103.0 H (80.0-100.0) fL BUN 20 H (7-17) mg/dL Creatinine 1.21 H (0.52-1.04) mg/dL Glucose 114 H (74-99) mg/dL POC Glucose (mg/dL) (70-110) mg/dL Albumin 3.3 L (3.5-5.0) g/dL Urine Appearance Turbid H (Clear) Urine Protein 2+ H (Negative) Urine Ketones Trace H (Negative) Urine Blood Large H (Negative) Urine Nitrite Positive H (Negative) Ur Leukocyte Esterase Large H (Negative) Urine RBC 30 H (0-5) /hpf Urine WBC 128 H (0-5) /hpf Urine WBC Clumps Many H (None) /hpf Amorphous Sediment Moderate H (None) /hpf Urine Bacteria Many H (None) /hpf Hyaline Casts 14 H (0-2) /lpf Urine Mucus Many H (None) /hpf 08/07/24 Range/Units 06:57 WBC (3.8-10.6) k/uL RBC (3.80-5.40) m/uL MCV (80.0-100.0) fL BUN (7-17) mg/dL Creatinine (0.52-1.04) mg/dL Glucose (74-99) mg/dL POC Glucose (mg/dL) 171 H (70-110) mg/dL Albumin (3.5-5.0) g/dL Urine Appearance (Clear) Urine Protein (Negative) Urine Ketones (Negative) Urine Blood (Negative) Urine Nitrite (Negative) Ur Leukocyte Esterase (Negative) Urine RBC (0-5) /hpf Urine WBC (0-5) /hpf Urine WBC Clumps (None) /hpf Amorphous Sediment (None) /hpf Urine Bacteria (None) /hpf Hyaline Casts (0-2) /lpf Urine Mucus (None) /hpf
[2024-08-07] MEDS: METOPROLOL SUCCINATE (ER) 25 MG TAB.ER.24H PO SCH (13:35)
[2024-08-07 16:46] LABS: Glucose,Whole Blood 123 mg/dL (70-110)
[2024-08-07] MEDS ORDERED: NON FORMULARY DRUG (Cal/D3/Mag11/Zinc/Cop/Mang/Bor [Caltrate 600+D Plus Tablet] 1 EACH Tab PO SCH (21:00)
[2024-08-07 21:26] LABS: Glucose,Whole Blood 113 mg/dL (70-110)
[2024-08-08 06:41] LABS: Glucose,Whole Blood 122 mg/dL (70-110)
[2024-08-08 08:32] LABS: Basophils # (A) 0.08 X 10*3/uL (0.00-0.10); Basophils % (A) 0.8 %; Eosinophils # (A) 0.19 X 10*3/uL (0.04-0.35); Eosinophils % (A) 1.9 %; HCT 38.4 % (37.2-46.3); Lymphocytes # (A) 2.45 X 10*3/uL (0.90-5.00); Lymphocytes % (A) 24.8 %; MCH 32.6 pg (27.0-32.0); MCHC 31.3 g/dL (32.0-37.0); MCV 104.3 FL (80.0-97.0); Mean Platelet Volume 9.6 FL (9.5-12.2); Monocytes # (A) 1.13 X 10*3/uL (0.20-1.00); Monocytes % (A) 11.4 %; NRBC Per 100 WBC 0 X 10*3/uL (0.00-0.01); Neutrophils # (A) 5.96 X 10*3/uL (1.80-7.70); Neutrophils % (A) 60.3 %; Platelet Count 275 X 10*3/uL (140-440); RBC 3.68 X 10*6/uL (4.10-5.20); RDW 13.5 % (11.5-14.5); WBC 9.89 X 10*3/uL (4.50-10.00)
[2024-08-08] MEDS: ESCITALOPRAM 5 MG TAB PO SCH (08:40)
[2024-08-08] MEDS: FUROSEMIDE 20 MG TAB PO SCH (10:53)
[2024-08-08] MEDS: SPIRONOLACTONE 25 MG TAB PO SCH (10:53)
[2024-08-08 11:43] LABS: Glucose,Whole Blood 181 mg/dL (70-110)
--- NOTE | 2024-08-08 14:18 | P.PN ---
Subjective Progress Note Date: 08/08/24 Patient is a 88-year-old female with past medical history of atrial fibrillation (on Eliquis), breast cancer (dx 2010, s/p radiation), systolic CHF (EF 20-25% on echo from 2013, s/p AICD placement) , dementia, recurrent UTis, diabetes mellitus, hyperlipidemia, hypertension was brought to the emergency department with altered mental status and unresponsiveness. Patient is a resident at [facility]. Her daughter is at bedside stated that she received a call from [facility] stating patient was unresponsive. Patient was reporetedly not eating/bathing/talking, and appeared confused which was not her baseline. Patient's baseline is usually more alert although patient does have a history of dementia. I contacted [facility] and the receptionist nurse reported that patient was behaving normally around dinnertime and nurse aides found her confused and less responsive around 8 PM which resulted in a call to her daughter. Patient did not sustain any falls or loss of consciousness earlier this evening. Patient has had a problem with recurrent UTIs since she started living at [facility]. Patient denied fever, chills, nausea, vomiting, diarrhea, constipation, dysuria during our assessment. She reported no active complaints although did not know why she was at the hospital. ED documentation reviewed. In the ED patient was treated with a single dose of 1000 mg ceftriaxone. Vitals on admission temperature 97.9, heart rate 57, respiratory rate 16, blood pressure 141/67, 95% oxygen saturation on room air EKG independently interpreted as ventricular rate of 49, bradycardia CXR shows pacemaker and cardiomegaly, stable. No definite acute process or interval change, with limited evaluation left lower lobe lung due to cardiomegaly and body habitus CT of head shows stable findings, no acute infarct, bleed, or acute intracranial abnormality Labs on admission show white blood count of 10.7, hemoglobin 12.4, hematocrit 37.9, platelet 103, PT 10.2, PTT 23.4, INR 0.9, sodium 138, potassium 4.0, chloride 105, carbon dioxide 26, BUN 20, creatinine 1.21, glucose 114 UA shows positive nitrates, large leukocyte esterase, 2+ protein, 30 RBC 08/07/2024 patient seen and examined at bedside. Patient reported no new complaints. No acute events overnight. WBC 9.6 hemoglobin 12.4 platelet count 293,000 sodium 138 potassium 4.1 BUN 18 creatinine 1.0 continue calcium 8.8 08/08/2024 patient seen and examined from bedside. Patient reported no new complaints. No acute events overnight. Per family, patient is at baseline cognition. WBC 9.89 hemoglobin 12 MCV 104 Plt count 275,000 Review of systems: Pertinent positives and negatives as discussed in HPI, a complete review of systems was performed and all other systems are negative. Pertinent imaging and labs reviewed. Physical examination: Vital signs reviewed General: non toxic, no distress, appears at stated age Derm: no unusual rashes/lesions, warm Head: atraumatic, normocephalic, symmetric Eyes: EOMI, anicteric sclera, pupils equal round reactive to light ENT: Nose and ears atraumatic Neck: No cervical lymphadenopathy, trachea midline, supple Mouth: no lip lesion, mucus membranes moist Cardiovascular: S1S2 reg, no murmur Lungs: CTA bilateral, no rhonchi, no rales, no accessory muscle use Abdominal: soft, nontender to palpation, no guarding Ext: muscle strength 5 out of 5 in all 4 extremities grossly, no gross muscle a trophy, no contractures, positive dorsalis pedis pulse bilateral, no edema Neuro: CN II-XI grossly intact, no gross focal neuro deficits Psych: Alert and oriented only to place and self, appropriate affect and mood Assessment/Plan: Patient is a 88-year-old female with past medical history of atrial fibrillation (on Eliquis), breast cancer (dx 2010, s/p radiation), systolic CHF (EF 20-25% on echo from 2013, s/p AICD placement) , dementia, recurrent UTis, diabetes melli tus, hyperlipidemia, hypertension was brought to the emergency department with altered mental status and unresponsiveness. She has been admitted to inpatient medicine service. Active: #. Acute encephalopathy secondary to uncomplicated urinary tract infection Patient has hx of recurrent episodes of UTI Urinalysis showed positive nitrates, large leukocyte esterase Continue Rocephin 1g IVPB daily F/u urine culture for antibiotic optimization Fall precautions PT consult for evaluation. Recommended NAMITA on discharge. # AN, due to UTI, resolved -IVF normal saline 0.9% 50 cc/h. Judicious use of IVFs in setting of significant CHF history -Monitor BMP -Resume Aldactone and Lasix #. Macrocytosis MCV 104. Hgb 12. Patient stable and is asymptomatic -Monitor for now #. Leukocytosis, resolved -WBC 9.89 Chronic conditions: #. Hypertension Restart home medications #. Atrial fibrillation Restart home med including metoprolol succinate 25 mg p.o. daily, apixaban 2.5 mg p.o. twice daily #. Systolic Congestive Heart failure (EF 20-25 05/2014), not on GDMT -Resume home Aldactone, furosemide and metoprolol -BP labile. Reevaluate tomorrow if can start on ACEi #. Hyperlipidemia -Restart Lipitor #. Type 2 DM -Insulin sliding scale ACHS -Blood glucose monitoring ACHS. Monitor for hypoglycemia Restart home medications once pharmacy has confirmed with patient F: IVF NS 0.9 50cc/hr E: Replete as required N: Heart healthy diet A: Support with ambulation DVT prophylaxis: SCDs Code status: No code Disposition: pending clinical course Michelle Robertson MD PGY-1/Creative Writing English Professor Dictation was produced using [employer] dictation software. please excuse any grammatical, word or spelling errors. I saw and evaluated the patient during the lima and critical portions of this encounter, and discussed the case in detail with the resident author of this note, I agree with the Assessment and Plan, and my changes, if any, are noted below. Continue Rocephin. Follow UCx. Anticipate DC tomorrow after UCx results. Objective - Vital Signs Vital signs: Vital Signs Temp 98.4 F 08/08/24 07:35 Pulse 62 08/08/24 08:40 Resp 19 08/08/24 08:40 BP 109/73 08/08/24 07:35 Pulse Ox 95 08/08/24 07:35 FiO2 Intake & Output 08/07/24 08/08/24 08/08/24 18:59 06:59 18:59 Output Total 100 Balance -100 Output: Urine 100 Other: Voiding Method External Catheter External Catheter External Catheter # Voids 1 - Labs CBC & Chem 7: 08/08/24 02:30 08/07/24 12:34 Labs: Abnormal Lab Results - Last 24 Hours (Table) 08/07/24 08/07/24 08/07/24 Range/Units 12:34 16:43 21:24 RBC (4.10-5.20) X 10*6/uL MCV (80.0-97.0) FL MCH (27.0-32.0) pg MCHC (32.0-37.0) g/dL Immature Gran # (0.00-0.04) X 10*3/uL Monocytes # (0.20-1.00) X 10*3/uL POC Glucose (mg/dL) 123 H 113 H (70-110) mg/dL Hemoglobin A1c 7.6 H (<=6.0) % 08/08/24 08/08/24 08/08/24 Range/Units 02:30 06:40 11:42 RBC 3.68 L (4.10-5.20) X 10*6/uL MCV 104.3 H (80.0-97.0) FL MCH 32.6 H (27.0-32.0) pg MCHC 31.3 L (32.0-37.0) g/dL Immature Gran # 0.08 H (0.00-0.04) X 10*3/uL Monocytes # 1.13 H (0.20-1.00) X 10*3/uL POC Glucose (mg/dL) 122 H 181 H (70-110) mg/dL Hemoglobin A1c (<=6.0) % Microbiology - Last 24 Hours (Table) 08/06/24 22:55 Urine Culture - Preliminary Urine,Clean Catch Gram Neg Bacilli
[2024-08-08 16:39] LABS: Glucose,Whole Blood 181 mg/dL (70-110)
[2024-08-08 18:33] LABS: African American GFR (CKD) 51 (>60 ml/min/1.73 sqM); Anion Gap 6 mmol/L; Blood Urea Nitrogen 18 mg/dL (7-17); Calcium 8.4 mg/dL (8.4-10.2); Carbon Dioxide 20 mmol/L (22-30); Chloride 112 mmol/L (98-107); Glucose 97 mg/dL (74-99); Non-African American GFR(CKD) 44 (>60 ml/min/1.73 sqM); Potassium 4.1 mmol/L (3.5-5.1); Sodium 138 mmol/L (137-145)
[2024-08-08 20:20] LABS: Glucose,Whole Blood 122 mg/dL (70-110)
[2024-08-09 06:23] LABS: Glucose,Whole Blood 137 mg/dL (70-110)
[2024-08-09 09:19] LABS: Basophils # (A) 0.09 X 10*3/uL (0.00-0.10); Basophils % (A) 0.8 %; Eosinophils % (A) 1.8 %; HCT 37.7 % (37.2-46.3); Lymphocytes # (A) 2.27 X 10*3/uL (0.90-5.00); Lymphocytes % (A) 19.9 %; MCH 33.1 pg (27.0-32.0); MCHC 31.8 g/dL (32.0-37.0); MCV 103.9 FL (80.0-97.0); Mean Platelet Volume 9.4 FL (9.5-12.2); Monocytes # (A) 1.17 X 10*3/uL (0.20-1.00); Monocytes % (A) 10.3 %; NRBC Per 100 WBC 0 X 10*3/uL (0.00-0.01); Neutrophils # (A) 7.57 X 10*3/uL (1.80-7.70); Neutrophils % (A) 66.4 %; Platelet Count 289 X 10*3/uL (140-440); RBC 3.63 X 10*6/uL (4.10-5.20); RDW 13.7 % (11.5-14.5); WBC 11.39 X 10*3/uL (4.50-10.00)
[2024-08-09 09:20] LABS: Blood Urea Nitrogen 12.6 mg/dL (9.0-27.0); Calcium 8.2 mg/dL (8.7-10.3); Carbon Dioxide 20.4 mmol/L (21.6-31.8); Chloride 109 mmol/L (96-109); Glucose 124 mg/dL (70-110); Potassium 3.9 mmol/L (3.5-5.5); Sodium 142 mmol/L (135-145)
[2024-08-09 11:29] LABS: Glucose,Whole Blood 144 mg/dL (70-110)
[2024-08-09 13:48] VITALS: BP 118/73; PULSE 69; RESP 19; TEMP 97.4
--- NOTE | 2024-08-09 13:55 | XR ---
EXAMINATION TYPE: XR chest 1V portable DATE OF EXAM: 08/09/2024 12:54 PM COMPARISON: Chest radiographs from 08/06/2024 CLINICAL INDICATION: Female, 88 years old with history of SOB; [facility] TECHNIQUE: XR chest 1V portable Frontal view of the chest. FINDINGS: Lungs/Pleura: There is no evidence of pleural effusion, focal consolidation, or pneumothorax. Pulmonary vascularity: Unremarkable. Heart/mediastinum: Cardiomediastinal silhouette is unremarkable. Three lead cardiac conduction device overlying the left hemithorax with lead tips projecting over the right ventricle, right atrium and c oronary sinus. Musculoskeletal: Degenerative changes of the shoulder joints. IMPRESSION: Cardiomegaly, No acute cardiopulmonary disease/process. [facility], , 08/09/2024 1:53 PM
--- NOTE | 2024-08-09 15:12 | P.DS ---
Providers Date of admission: 08/06/24 23:46 Attending physician: Harriet Deal MD Primary care physician: Negro Fisher MD Hospital Course: Hospital Course: Patient is a 88-year-old female with past medical history of atrial fibrillation (on Eliquis), breast cancer (dx 2010, s/p radiation), systolic CHF (EF 20-25% on echo from 2013, s/p AICD placement) , dementia, recurrent UTis, diabetes mellitus, hyperlipidemia, hypertension was brought to the emergency department with altered mental status and unresponsiveness. Vitals on admission temperature 97.9, heart rate 57, respiratory rate 16, blood pressure 141/67, 95% oxygen saturation on room air. Imaging in the ER: EKG independently interpreted as ventricular rate of 49, bradycardia CXR shows pacemaker and cardiomegaly, stable. No definite acute process or interval change, with limited evaluation left lower lobe lung due to cardiomegaly and body habitus CT of head shows stable findings, no acute infarct, bleed, or acute intracranial abnormality Labs on admission: White blood count of 10.7, hemoglobin 12.4, hematocrit 37.9, platelet 103, PT 10.2, PTT 23.4, INR 0.9, sodium 138, potassium 4.0, chloride 105, carbon dioxide 26, BUN 20, creatinine 1.21, glucose 114 UA shows positive nitrates, large leukocyte esterase, 2+ protein, 30 RBC Patient evaluated for encephalopathy likely due to UTI. Urine cultures ordered, placed on fall precautions, PT consulted, initiated Rocephin IVPB, and placed on IV fluids. Urine cultures grew drug sensitive Klebsiella pneumonia. PT OT recommended outpatient rehab. Patient noted to have O2 saturations at the low 90s and chest x-ray was ordered. Chest x-ray showed no acute pulmonary process or disease. Patient symptoms improved throughout patient's stay. Creatinine and WBC levels also normalized. Patient discharged today to [facility] with ciprofloxacin twice a day for 5 more days. Patient advised to follow-up with PCP on outpatient basis. Final Diagnosis: #. Acute encephalopathy secondary to uncomplicated urinary tract infection #. Acute Kidney Injury, due to UTI, resolved #. Macrocytosis, stable #. Leukocytosis, resolved #. Hypertension #. Atrial fibrillation #. Systolic Congestive Heart failure (EF 20-25 05/2014) #. Hyperlipidemia #. Non-insulin dependent diabetes mellitus Physical examination: Vital signs reviewed General: non toxic, no distress Derm: no unusual rashes/lesions, warm Head: atraumatic, normocephalic, symmetric Eyes: EOMI, anicteric sclera, pupils equal round reactive to light ENT: Nose and ears atraumatic Neck: No cervical lymphadenopathy, trachea midline, supple Mouth: no lip lesion, mucus membranes moist Cardiovascular: S1S2 reg, no murmur Lungs: CTA bilateral, no rhonchi, no rales, no accessory muscle use Abdominal: soft, nondistended, nontender to palpation, no guarding Ext: muscle strength 5 out of 5 in all 4 extremities grossly, no gross muscle atrophy, no contractures, positive dorsalis pedis pulse bilateral, no edema Neuro: CN II-XI grossly intact, no gross focal neuro deficits Psych: Alert and oriented only to place and self, appropriate affect and mood I saw and evaluated the patient during the lima and critical portions of this encounter, and discussed the case in detail with the resident author of this note, I agree with the Assessment and Plan, and my changes, if any, are noted below. UCx Klebsiella. Allergic to PCN. Plans for Cipro x 5 days (total 7 days antibiotics). Discussed with [facility] provider. Plans for discharge today. Patient Condition at Discharge: Good Plan - Discharge Summary Discharge Rx Participant: Yes New Discharge Prescriptions: New Ciprofloxacin HCl [Cipro] 250 mg PO Q12HR 5 Days #10 tab Continue Metoprolol Succinate [Toprol XL] 25 mg PO DAILY Spironolactone [Aldactone] 12.5 mg PO DAILY Furosemide [Lasix] 20 mg PO DAILY Escitalopram [Lexapro] 5 mg PO DAILY Cholestyramine (with Sugar) [Cholestyramine Packet] 4 gm PO BID Ondansetron Odt [Zofran ODT] 4 mg PO BID PRN PRN Reason: Nausea Loperamide [Imodium] 2 - 4 mg PO QID PRN MDD 6 caps PRN Reason: Loose Stool Jay/D3/Mag11/Zinc/Billboard Poster/David/Bor [Caltrate 600+D Plus Tablet] 1 tab PO BID Docusate [Colace] 100 mg PO DAILY valACYclovir HCL [Valtrex] 1,000 mg PO DAILY Acetaminophen Tab [Tylenol] 500 mg PO TID Discharge Medication List Metoprolol Succinate [Toprol XL] 25 mg PO DAILY 05/28/14 [History] Acetaminophen Tab [Tylenol] 500 mg PO TID 02/22/24 [History] Cholestyramine (with Sugar) [Cholestyramine Packet] 4 gm PO BID 02/22/24 [History] Escitalopram [Lexapro] 5 mg PO DAILY 02/22/24 [History] Furosemide [Lasix] 20 mg PO DAILY 02/22/24 [History] Loperamide [Imodium] 2 - 4 mg PO QID PRN MDD 6 caps 02/22/24 [History] Ondansetron Odt [Zofran ODT] 4 mg PO BID PRN 02/22/24 [History] Spironolactone [Aldactone] 12.5 mg PO DAILY 02/22/24 [History] valACYclovir HCL [Valtrex] 1,000 mg PO DAILY 02/22/24 [History] Jay/D3/Mag11/Zinc/Billboard Poster/David/Bor [Caltrate 600+D Plus Tablet] 1 tab PO BID 08/07/24 [History] Docusate [Colace] 100 mg PO DAILY 08/07/24 [History] Ciprofloxacin HCl [Cipro] 250 mg PO Q12HR 5 Days #10 tab 08/09/24 [Rx] Follow up Appointment(s)/Referral(s): Negro Fisher MD [Primary Care Provider] - 08/10/24 10:00 am Patient Instructions/Handouts: Urinary Tract Infection in Women (DC) Discharge Disposition: HOME WITH HOME HEALTH SERVICES
== END 2024-08-09 15:46 | disposition home health service (06) | DRG 689 ==
LOC: EC 20:21 → 4SSUR 23:46
PROVIDERS: ADMIT Internal Medicine; ATTEND Internal Medicine
DX: N39.0 Urinary tract infection, site not specified (principal); G93.41 Metabolic encephalopathy; I50.22 Chronic systolic (congestive) heart failure; N17.9 Acute kidney failure, unspecified; I11.0 Hypertensive heart disease with heart failure; I48.91 Unspecified atrial fibrillation; E11.9 Type 2 diabetes mellitus without complications; F03.90 Unspecified dementia, unspecified severity, without behavioral disturbance, psychotic disturbance, mood disturbance, and anxiety; Z66 Do not resuscitate; D75.89 Other specified diseases of blood and blood-forming organs; B96.1 Klebsiella pneumoniae [K. pneumoniae] as the cause of diseases classified elsewhere; E78.5 Hyperlipidemia, unspecified; Z79.01 Long term (current) use of anticoagulants; Z87.440 Personal history of urinary (tract) infections; Z92.3 Personal history of irradiation; Z95.810 Presence of automatic (implantable) cardiac defibrillator; Z85.3 Personal history of malignant neoplasm of breast; Z79.899 Other long term (current) drug therapy
CPT/HCPCS: 36415; 70450; 71045; 71046; 80048; 80053; 81001; 83036; 83605; 83735; 84484; 85025; 85610; 85730; 87077; 87086; 87186; 93005; 96374; 99285

== ENCOUNTER 2024-11-18 23:04 | Inpatient (IN) | payer OTHER ==
--- NOTE | 2024-11-18 23:12 | ED ---
Altered Mental Status HPI - General Chief Complaint: Shortness of Breath Stated Complaint: TIERNEY Time Seen by Provider: 11/18/24 23:06 Source: EMS, RN notes reviewed, old records reviewed Mode of arrival: EMS Limitations: no limitations - History of Present Illness Initial Comments: This is an 89-year-old female presenting in severe respiratory distress on BiPAP unable to respond paradoxical breathing significant work of breathing presents by EMS under BiPAP MD Complaint: altered mental status, confusion, decreased responsiveness, weakness, other (Severe shortness of breath and dyspnea on BiPAP presentation) -: unknown Severity: severe Consistency of Symptoms: getting worse Context: history of similar presentation Associated Symptoms: shortness of breath Treatments Prior to Arrival: oxygen - Related Data Home Medications Medication Instructions Recorded Confirmed Metoprolol Succinate [Toprol XL] 25 mg PO DAILY 05/28/14 08/07/24 Acetaminophen Tab [Tylenol] 500 mg PO TID 02/22/24 08/07/24 Cholestyramine (with Sugar) 4 gm PO BID 02/22/24 08/07/24 [Cholestyramine Packet] Escitalopram [Lexapro] 5 mg PO DAILY 02/22/24 08/07/24 Furosemide [Lasix] 20 mg PO DAILY 02/22/24 08/07/24 Loperamide [Imodium] 2 - 4 mg PO QID PRN MDD 6 caps 02/22/24 08/07/24 Ondansetron Odt [Zofran ODT] 4 mg PO BID PRN 02/22/24 08/07/24 Spironolactone [Aldactone] 12.5 mg PO DAILY 02/22/24 08/07/24 valACYclovir HCL [Valtrex] 1,000 mg PO DAILY 02/22/24 08/07/24 Jay/D3/Mag11/Zinc/Ms Sql Server Developer/David/Bor 1 tab PO BID 08/07/24 08/07/24 [Caltrate 600+D Plus Tablet] Docusate [Colace] 100 mg PO DAILY 08/07/24 08/07/24 Previous Rx's Medication Instructions Recorded Ciprofloxacin HCl [Cipro] 250 mg PO Q12HR 5 Days #10 tab 08/09/24 Allergies Allergy/AdvReac Type Severity Reaction Status Date / Time Penicillins Allergy Rash/Hives Verified 11/18/24 23:08 Review of Systems ROS Statement: Those systems with pertinent positive or pertinent negative responses have been documented in the HPI. ROS Other: All systems not noted in ROS Statement are negative. Past Medical History Past Medical History: Atrial Fibrillation, Cancer, Heart Failure, Dementia, Diabetes Mellitus, Eye Disorder, Hyperlipidemia, Hypertension Additional Past Medical History / Comment(s): GLAUCOMA, DIET CONTROLLED DIABETIC,.ARTHRITIS, HX BREAST CANCER WITH RADIATION (2010), SEE DR CARTY H & P., SHORT TERM MEMORY LOSS., WEARS DEPENDS. History of Any Multi-Drug Resistant Organisms: None Reported Past Surgical History: AICD, Heart Catheterization, Hysterectomy, Pacemaker Additional Past Surgical History / Comment(s): LT CATARACT REMOVED, LUMPECTOMY RT BREAST, THORACENTESIS & PERICARDIAL WINDOW. Past Anesthesia/Blood Transfusion Reactions: No Reported Reaction Type of Cardiac Device: Permanent Pacemaker, AICD Device Placement Date:: 10-08-2013 Past Psychological History: No Psychological Hx Reported, Unable to Obtain Past Alcohol Use History: Daily, None Reported - Past Family History Father Additional Family Medical History / Comment(s): IN HIS 70'S FROM A STROKE Mother Family Medical History: CVA/TIA, Diabetes Mellitus Additional Family Medical History / Comment(s): IN HER 80'S STROKE/ COMPICATIONS FROM DIABETES General Exam Limitations: altered mental status, physical limitation General appearance: alert, in no apparent distress Head exam: Present: atraumatic, normocephalic, normal inspection Eye exam: Present: normal appearance, PERRL, EOMI. Absent: scleral icterus, conjunctival injection, periorbital swelling ENT exam: Present: normal exam, mucous membranes moist Neck exam: Present: normal inspection. Absent: tenderness, meningismus, lymphadenopathy Respiratory exam: Present: normal lung sounds bilaterally. Absent: respiratory distress, wheezes, rales, rhonchi, stridor Cardiovascular Exam: Present: regular rate, normal rhythm, normal heart sounds. Absent: systolic murmur, diastolic murmur, rubs, gallop, clicks GI/Abdominal exam: Present: soft, normal bowel sounds. Absent: distended, tenderness, guarding, rebound, rigid Extremities exam: Present: normal inspection, full ROM, normal capillary refill. Absent: tenderness, pedal edema, joint swelling, calf tenderness Back exam: Present: normal inspection Neurological exam: Present: alert, oriented X3, CN II-XII intact Psychiatric exam: Present: normal affect, normal mood Skin exam: Present: warm, dry, intact, normal color. Absent: rash Course Vital Signs 11/18/24 11/18/24 11/18/24 23:05 23:10 23:25 Pulse Rate 105 H Respiratory 26 H Rate Blood Pressure 144/111 O2 Sat by Pulse 91 L Oximetry Fraction of 100 100 Inspired Oxygen (FIO2) 11/19/24 11/19/24 00:11 00:25 Pulse Rate 89 89 Respiratory Rate Blood Pressure O2 Sat by Pulse Oximetry Fraction of 80 Inspired Oxygen (FIO2) - Reevaluation(s) Reevaluation #1: 11/18/24 23:20 Medical records reviewed Reevaluation #2: 11/19/24 00:51 Spoke with family at length at bedside patient is in no code patient currently Family does not want any central line done they do want to transition to comfort care continue to treat with resuscitation and BiPAP Reevaluation #3: 11/19/24 00:51 Patient's blood pressure initially was labile and low improving with fluid resuscitation Patient given antibiotics for possibility of pneumonia Reevaluation #4: Was pt. sent in by a medical professional or institution (, PA, SUPERVISOR ROUGH [employer], urgent care, hospital, or long term...) When possible be specific @ -no Did you speak to anyone other than the patient for history (EMS, parent, family, police, friend...)? What history was obtained from this source @ -no Did you review nursing and triage notes (agree or disagree)? Why? @ -agree Are old charts reviewed (outside hosp., previous admission, EMS record, old EKG, old radiological studies, urgent care reports/EKG's, long term records)? Report findings @ -yes Differential Diagnosis (chest pain, altered mental status, abdominal pain women, abdominal pain men, vaginal bleeding, weakness, fever, dyspnea, syncope, headache, dizziness, GI bleed, back pain, seizure, CVA, palpatations, mental health, musculoskeletal)? @ -prior EKG interpreted by me (3pts min.). @ -yes X-rays interpreted by me (1pt min.). @ -yes negative for acute disease CT interpreted by me (1pt min.). @ -no U/S interpreted by me (1pt. min.). @ -no What testing was considered but not performed or refused? (CT, X-rays, U/S, labs)? Why? @ -none What meds were considered but not given or refused? Why? @ -none Did you discuss the management of the patient with other professionals (professionals i.e. , PA, SUPERVISOR ROUGH [employer], lab, RT, psych nurse, social service worker, commercial real estate appraiser, teacher, disability liaison officer, case loader operator)? Give summary @ -no Was smoking cessation discussed for >3mins.? @ -no Was critical care preformed (if so, how long)? @ -no Were there social determinants of health that impacted care today? How? (Homelessness, low income, unemployed, alcoholism, drug addiction, transp ortation, low edu. Level, literacy, decrease access to med. care, residential, rehab)? @ -none Was there de-escalation of care discussed even if they declined (Discuss DNR or withdrawal of care, Hospice)? DNR status @ -no What co-morbidities impacted this encounter? (DM, HTN, Smoking, COPD, CAD, Cancer, CVA, ARF, Chemo, Hep., AIDS, mental health diagnosis, sleep apnea, morbid obesity)? @ -none Was patient admitted / discharged? Hospital course, mention meds given and route, prescriptions, significant lab abnormalities, going to OR and other pertinent info. @ - Undiagnosed new problem with uncertain prognosis? @ -no Drug Therapy requiring intensive monitoring for toxicity (Heparin, Nitro, Insu luke, Cardizem)? @ -no Were any procedures done? @ -no Diagnosis/symptom? @ - Acute, or Chronic, or Acute on Chronic? @ -Acute Uncomplicated (without systemic symptoms) or Complicated (systemic symptoms)? @ -Complicated Side effects of treatment? @ -no Exacerbation, Progression, or Severe Exacerbation? @ -exacerbation Poses a threat to life or bodily function? How? (Chest pain, [place], [place], pneumonia, PE, COPD, DKA, ARF, appy, cholecystitis, CVA, Diverticulitis, Homicidal, Suicidal, threat to staff... and all critical care pts) @ -yes Reevaluation #5: Differential Altered Mental Status: Hypoglycemia, DKA, hypercapnia, ETOH, overdose, CO poisoning, trauma, myxedema coma, HTN encephalopathy, infection, encephalitis, psychosis, intercranial hemorrhage, hepatic encephalopathy, meningitis, CVA, this is not meant to be an all-inclusive list Medical Decision Making - Medical Decision Making 89 female to ER patient is in no code patient transition to hospice, or comfort care. Patient comes in respiratory distress and respiratory failure placed on BiPAP for work of breathing chest x-ray is clear history of heart failure no history of COPD, patient treated for pneumonia with elevated white blood cell count - Lab Data Result diagrams: 11/18/24 23:22 11/18/24 23:22 Lab Results 11/18/24 11/18/24 11/18/24 Range/Units 23:22 23:22 23:22 WBC 21.1 H (3.8-10.6) k/uL RBC 3.99 (3.80-5.40) m/uL Hgb 12.8 (11.4-16.0) gm/dL Hct 42.3 (34.0-46.0) % MCV 106.1 H (80.0-100.0) fL MCH 32.0 (25.0-35.0) pg MCHC 30.2 L (31.0-37.0) g/dL RDW 14.2 (11.5-15.5) % Plt Count 307 (150-450) k/uL MPV 8.1 Neutrophils % 86 % Lymphocytes % 9 % Monocytes % 4 % Eosinophils % 1 % Basophils % 0 % Neutrophils # 18.1 H (1.3-7.7) k/uL Lymphocytes # 1.9 (1.0-4.8) k/uL Monocytes # 0.7 (0-1.0) k/uL Eosinophils # 0.1 (0-0.7) k/uL Basophils # 0.1 (0-0.2) k/uL Hypochromasia Slight Macrocytosis Moderate PT 10.7 (10.0-12.5) sec INR 1.0 (<1.2) APTT 20.3 L (22.0-30.0) sec Sodium 134 L (137-145) mmol/L Potassium 4.7 (3.5-5.1) mmol/L Chloride 103 (98-107) mmol/L Carbon Dioxide 15 L (22-30) mmol/L Anion Gap 16 mmol/L BUN 12 (7-17) mg/dL Creatinine 1.03 (0.52-1.04) mg/dL Est GFR (CKD-EPI)AfAm 56 (>60 ml/min/1.73 sqM) Est GFR (CKD-EPI)NonAf 48 (>60 ml/min/1.73 sqM) Glucose 322 H (74-99) mg/dL Calcium 9.9 (8.4-10.2) mg/dL Magnesium 1.4 L (1.6-2.3) mg/dL Total Bilirubin 0.6 (0.2-1.3) mg/dL AST 39 H (14-36) U/L ALT 28 (4-34) U/L Alkaline Phosphatase 76 (38-126) U/L Troponin I (0.000-0.034) ng/mL NT-Pro-B Natriuret Pep 3460 pg/mL Total Protein 7.1 (6.3-8.2) g/dL Albumin 3.7 (3.5-5.0) g/dL 11/18/24 Range/Units 23:22 WBC (3.8-10.6) k/uL RBC (3.80-5.40) m/uL Hgb (11.4-16.0) gm/dL Hct (34.0-46.0) % MCV (80.0-100.0) fL MCH (25.0-35.0) pg MCHC (31.0-37.0) g/dL RDW (11.5-15.5) % Plt Count (150-450) k/uL MPV Neutrophils % % Lymphocytes % % Monocytes % % Eosinophils % % Basophils % % Neutrophils # (1.3-7.7) k/uL Lymphocytes # (1.0-4.8) k/uL Monocytes # (0-1.0) k/uL Eosinophils # (0-0.7) k/uL Basophils # (0-0.2) k/uL Hypochromasia Macrocytosis PT (10.0-12.5) sec INR (<1.2) APTT (22.0-30.0) sec Sodium (137-145) mmol/L Potassium (3.5-5.1) mmol/L Chloride (98-107) mmol/L Carbon Dioxide (22-30) mmol/L Anion Gap mmol/L BUN (7-17) mg/dL Creatinine (0.52-1.04) mg/dL Est GFR (CKD-EPI)AfAm (>60 ml/min/1.73 sqM) Est GFR (CKD-EPI)NonAf (>60 ml/min/1.73 sqM) Glucose (74-99) mg/dL Calcium (8.4-10.2) mg/dL Magnesium (1.6-2.3) mg/dL Total Bilirubin (0.2-1.3) mg/dL AST (14-36) U/L ALT (4-34) U/L Alkaline Phosphatase (38-126) U/L Troponin I 0.091 H* (0.000-0.034) ng/mL NT-Pro-B Natriuret Pep pg/mL Total Protein (6.3-8.2) g/dL Albumin (3.5-5.0) g/dL - EKG Data -: EKG Interpreted by Me (EKG is uncertain rhythm 133 QRS 147 QTc 398) - Radiology Data Radiology results: report reviewed (Chest x-ray is negative for acute disease), image reviewed Critical Care Time Critical Care Time: Yes Total Critical Care Time: 31 Disposition Clinical Impression: Bronchitis with bronchospasm, Hypoxia, Altered mental status, Acute respiratory failure, Leukocytosis Disposition: ADMITTED IP TO THIS [facility] Condition: Serious Is patient prescribed a controlled substance at d/c from ED?: No Referrals: Negro Fisher MD [Primary Care Provider] - 1-2 days Time of Disposition: 00:50
[2024-11-18] MEDS: FUROSEMIDE 10 MG/ML 10 ML VIAL IV STA (23:15)
[2024-11-18] MEDS: NITROGLYCERIN OINT 1 INCH/GM PACKET TOPICAL STA (23:20)
[2024-11-18] MEDS: MORPHINE SULFATE 2 MG/ML SYRINGE IVP STA (23:20)
[2024-11-18] MEDS: LORazepam 2 MG/ML INJ IV STA (23:20)
[2024-11-18 23:41] LABS: Basophils # (A) 0.1 k/uL (0-0.2); Basophils % (A) 0 %; Eosinophils # (A) 0.1 k/uL (0-0.7); Eosinophils % (A) 1 %; HCT 42.3 % (34.0-46.0); HGB 12.8 gm/dL (11.4-16.0); Hypochromasia Slight; Lymphocytes # (A) 1.9 k/uL (1.0-4.8); Lymphocytes % (A) 9 %; MCHC 30.2 g/dL (31.0-37.0); MCV 106.1 fL (80.0-100.0); Macrocytosis Moderate; Mean Platelet Volume 8.1; Monocytes # (A) 0.7 k/uL (0-1.0); Monocytes % (A) 4 %; Neutrophils # (A) 18.1 k/uL (1.3-7.7); Neutrophils % (A) 86 %; Platelet Count 307 k/uL (150-450); RBC 3.99 m/uL (3.80-5.40); RDW 14.2 % (11.5-15.5); WBC 21.1 k/uL (3.8-10.6)
[2024-11-18 23:53] LABS: African American GFR (CKD) 56 (>60 ml/min/1.73 sqM); Albumin 3.7 g/dL (3.5-5.0); Anion Gap 16 mmol/L; Blood Urea Nitrogen 12 mg/dL (7-17); Calcium 9.9 mg/dL (8.4-10.2); Carbon Dioxide 15 mmol/L (22-30); Chloride 103 mmol/L (98-107); Glucose 322 mg/dL (74-99); Non-African American GFR(CKD) 48 (>60 ml/min/1.73 sqM); Sodium 134 mmol/L (137-145); Total Bilirubin 0.6 mg/dL (0.2-1.3); Total Protein 7.1 g/dL (6.3-8.2)
[2024-11-18 23:56] LABS: Prothrombin Time 10.7 sec (10.0-12.5)
[2024-11-18 23:57] LABS: Partial Thromboplastin Time 20.3 sec (22.0-30.0)
[2024-11-19 00:01] LABS: NT-Pro-B-Type Natriuretic Pept 3460 pg/mL
[2024-11-19 00:09] LABS: ALT 28 U/L (4-34); AST 39 U/L (14-36); Alkaline Phosphatase 76 U/L (38-126); Magnesium 1.4 mg/dL (1.6-2.3); Potassium 4.7 mmol/L (3.5-5.1)
[2024-11-19] MEDS: ALBUTEROL NEBULIZED 2.5 MG/3 ML INHALATION STA (00:10)
[2024-11-19] MEDS: IPRATROPIUM 0.5 MG/2.5 ML NEBU INHALATION STA (00:11)
[2024-11-19] MEDS: SODIUM CHLORIDE 0.9% 1,000 ML IV ONE (00:18)
[2024-11-19] MEDS: LACTATED RINGERS 1,000 ML IV ONE (00:18)
[2024-11-19] MEDS ORDERED: NALOXONE 0.4 MG/ML 1 ML VIAL IV PRN (00:49)
[2024-11-19] MEDS ORDERED: ONDANSETRON 4 MG/2 ML VIAL IVP PRN (00:49)
[2024-11-19] MEDS: AZITHROMYCIN 500 MG in SODIUM CHLORIDE 0.9% 250 ML IVPB STA (01:06)
[2024-11-19] MEDS: SODIUM CHLORIDE 0.9% 1,000 ML IV SCH (01:14)
[2024-11-19 01:22] VITALS: RESP 18
[2024-11-19 01:24] VITALS: TEMP 98.2
--- NOTE | 2024-11-19 02:56 | XR ---
EXAM: XR Chest, 1 View CLINICAL HISTORY: sob TECHNIQUE: Frontal view of the chest. COMPARISON: 08/09/2024. FINDINGS: Patient is rotated to the left. Left subclavian dual-chamber pacemaker with AICD. Heart is enlarged. No CHF. No definite infiltrate. Pacemaker partially obscures the left lung base. No definite pleural effusion or pneumothorax. Bones are unchanged. IMPRESSION: No significant interval change.
[2024-11-19 06:28] VITALS: BP 100/62; PULSE 76
[2024-11-19] MEDS ORDERED: LORazepam 1 MG/0.5 ML VIAL IV PRN (08:12)
[2024-11-19] MEDS ORDERED: guaiFENesin-DM 100-10MG/5ML 10 ML CUP PO PRN (08:13)
[2024-11-19] MEDS ORDERED: LOPERAMIDE 2 MG CAP PO PRN (08:13)
--- NOTE | 2024-11-19 08:26 | P.HPIM ---
History of Present Illness H&P Date: 11/19/24 Patient is a 89-year-old with history of atrial fibrillation, breast cancer s/p radiation, HFrEF 20 to 25% status post AICD, dementia, recurrent UTIs, diabetes, hypertension, hyperlipidemia presenting with shortness of breath. Patient is a poor historian. Per EMS report, patient was picked up from [facility] home and was supposedly having hematemesis, possibly aspirated. However there was no evidence of hematemesis around patient when EMS arrived. There is also other people within the facility that have the respiratory symptoms. After talking to the daughter and PCP, patient may have had some seizure-like activity and possible aspiration leading to difficulty in breathing. Patient has advanced dementia, only oriented to herself. Mostly bed and chair bound. She has been slowly transitioning into comfort care measures only. In the ED, temperature was 98.2, pulse 79, respiratory rate 18, blood pressure 112/78, saturating 100% on BiPAP. WBC 21.1, hemoglobin 12.8, sodium 134, po tassium 4.7, bicarb 15, anion gap 16, creatinine 1.03, magnesium 1.4, glucose 322, total bili 0.6, AST 39, ALT 28, ALP 76, troponin 0.091, proBNP 3400. EKG independently interpreted shows poorly paced rhythm, right bundle branch block nonspecific ST-T wave changes. Chest x-ray independently interpreted, shows no major opacities. Patient being admitted for acute hypoxic respiratory failure, possible aspiration pneumonitis and CHF exacerbation. Pertinent positives and negatives as discussed in HPI, a complete review of systems was performed and all other systems are negative. Patient seen and examined at bedside. Vital signs reviewed General: nontoxic, no distress, appears at stated age Derm: warm, dry Head: atraumatic, normocephalic, symmetric Eyes: EOMI, no lid lag, anicteric sclera, pupils equal round reactive to light ENT: Nose and ears atraumatic Neck: No thyromegaly, supple Mouth: no lip lesion, mucus membranes moist Cardiovascular: S1S2 reg, no murmur, trace peripheral edema Lungs: Bilateral rhonchi, no wheeze, no accessory muscle use, on BiPAP Abdominal: soft, nontender to palpation, no guarding, no appreciable organomegaly Ext: no gross muscle atrophy, muscle strength muscle strength 5 out of 5 in all 4 extremities, no contractures Neuro: CN II-XII grossly intact Psych: Alert, oriented x 1, appropriate affect Assessment/Plan: Active: Acute hypoxic respiratory failure Suspected aspiration pneumonitis Leukocytosis, reactive Mild systolic CHF exacerbation 20 to 25%, status post AICD NSTEMI, likely type II -Wean off of BiPAP to nasal cannula -Hold further antibiotics, as no clear opacities noted on chest x-ray -Viral panel pending -Blood cultures pending -Patient given 60 IV Lasix in the ER, resume home 20 oral Lasix daily -Per daughter, does not want any aggressive interventions -Cardiology consult discontinued -Pain control with oral Tylenol 500 3 times daily, IV morphine 4 mg every 4 hours as needed -IV Ativan 0.5 mg every 6 hours for anxiety Chronic: Hypertension Advanced dementia Type 2 diabetes Prostate cancer s/p radiation The patient is admitted with an anticipated greater than 2 midnight stay as inpatient status for evaluation of acute hypoxic respiratory failure. Surrogate decision-maker: Daughter CODE STATUS: DNR/DNI DVT prophylaxis: Not indicated Anticipated discharge date: Pending clinical course Anticipated discharge place: Pending clinical course A total of 65 minutes was spent on the care of this complex patient more than 50% of the time was spent in counseling and care coordination. Past Medical History Past Medical History: Atrial Fibrillation, Cancer, Heart Failure, Dementia, Diabetes Mellitus, Eye Disorder, Hyperlipidemia, Hypertension Additional Past Medical History / Comment(s): GLAUCOMA, DIET CONTROLLED DIABETIC,.ARTHRITIS, HX BREAST CANCER WITH RADIATION (2010), SEE DR CARTY H & P., SHORT TERM MEMORY LOSS., WEARS DEPENDS. History of Any Multi-Drug Resistant Organisms: None Reported Past Surgical History: AICD, Heart Catheterization, Hysterectomy, Pacemaker Additional Past Surgical History / Comment(s): LT CATARACT REMOVED, LUMPECTOMY RT BREAST, THORACENTESIS & PERICARDIAL WINDOW. Past Anesthesia/Blood Transfusion Reactions: No Reported Reaction Type of Cardiac Device: Permanent Pacemaker, AICD Device Placement Date:: 10-08-2013 Past Psychological History: No Psychological Hx Reported, Unable to Obtain Past Alcohol Use History: Daily, None Reported - Past Family History Father Additional Family Medical History / Comment(s): IN HIS 70'S FROM A STROKE Mother Family Medical History: CVA/TIA, Diabetes Mellitus Additional Family Medical History / Comment(s): IN HER 80'S STROKE/ COMPICATIONS FROM DIABETES Medications and Allergies Home Medications Medication Instructions Recorded Confirmed Type Metoprolol Succinate [Toprol XL] 25 mg PO DAILY@0800 05/28/14 11/19/24 History Acetaminophen Tab [Tylenol] 500 mg PO TID@0800,1400,199902/22/24 11/19/24 History Escitalopram [Lexapro] 5 mg PO DAILY@0800 02/22/24 11/19/24 History Furosemide [Lasix] 20 mg PO DAILY@0802/22/24 11/19/24 History Spironolactone [Aldactone] 12.5 mg PO DAILY@0800 02/22/24 11/19/24 History valACYclovir HCL [Valtrex] 1,000 mg PO DAILY@0800 02/22/24 11/19/24 History Docusate [Colace] 100 mg PO DAILY@0800 08/07/24 11/19/24 History Calcium Carbonate/Vitamin D3 1 tab PO BID@0800,199911/19/24 11/19/24 History [Calcium 600 mg-Vit D3 10 mcg (400 Unit)] Carbamide Peroxide [Debrox Otic] 5 drops RIGHT EAR BID@0800,199911/19/24 11/19/24 History Colesevelam [Welchol] 1,875 mg PO BID@0800,199911/19/24 11/19/24 History Loperamide HCl [Imodium A-D] 2 mg PO BID PRN 11/19/24 11/19/24 History guaiFENesin-DM 100-10MG/5ML 20 ml PO Q4H PRN 11/19/24 11/19/24 History [Robitussin DM] Allergies Allergy/AdvReac Type Severity Reaction Status Date / Time Penicillins Allergy Rash/Hives Verified 11/19/24 07:21 Physical Exam Vitals: Vital Signs Temp Pulse Resp BP Pulse Ox FiO2 11/19/24 07:30 55 11/19/24 06:27 76 18 100/62 98 11/19/24 04:27 73 18 101/70 98 11/19/24 03:32 55 11/19/24 01:08 98.2 F 79 18 112/78 100 11/19/24 00:25 89 80 11/19/24 00:11 89 11/19/24 00:08 90 22 82/63 99 11/18/24 23:25 100 11/18/24 23:15 30 H 11/18/24 23:10 100 11/18/24 23:05 99.1 F 105 H 26 H 144/111 91 L Intake and Output 11/18/24 11/19/24 11/19/24 22:59 06:59 14:59 Other: Weight 70.307 kg Results CBC & Chem 7: 11/18/24 23:22 11/18/24 23:22 Labs: Abnormal Lab Results - Last 24 Hours (Table) 11/18/24 11/18/24 11/18/24 Range/Units 23:22 23:22 23:22 WBC 21.1 H (3.8-10.6) k/uL MCV 106.1 H (80.0-100.0) fL MCHC 30.2 L (31.0-37.0) g/dL Neutrophils # 18.1 H (1.3-7.7) k/uL APTT 20.3 L (22.0-30.0) sec Sodium 134 L (137-145) mmol/L Carbon Dioxide 15 L (22-30) mmol/L Glucose 322 H (74-99) mg/dL Magnesium 1.4 L (1.6-2.3) mg/dL AST 39 H (14-36) U/L Troponin I (0.000-0.034) ng/mL 11/18/24 Range/Units 23:22 WBC (3.8-10.6) k/uL MCV (80.0-100.0) fL MCHC (31.0-37.0) g/dL Neutrophils # (1.3-7.7) k/uL APTT (22.0-30.0) sec Sodium (137-145) mmol/L Carbon Dioxide (22-30) mmol/L Glucose (74-99) mg/dL Magnesium (1.6-2.3) mg/dL AST (14-36) U/L Troponin I 0.091 H* (0.000-0.034) ng/mL
[2024-11-19] MEDS ORDERED: ATROPINE OPHTH SOLN 1% 5ML BTL SUBLINGUAL PRN (10:29)
[2024-11-19] MEDS: MORPHINE SULFATE 4 MG/ML SYRINGE IV PRN (11:15)
[2024-11-19] MEDS: GLYCOPYRROLATE 0.2 MG/ML 2 ML VIAL IVP PRN (11:17)
--- NOTE | 2024-11-19 12:23 | P.DS ---
Providers Date of admission: 11/19/24 00:49 Expected date of discharge: 11/19/24 Attending physician: Jose Rafael Rodriguez Primary care physician: Negro Fisher MD Hospital Course: Discharge Diagnosis: Acute hypoxic respiratory failure Suspected aspiration pneumonitis Leukocytosis, reactive Mild systolic CHF exacerbation 20 to 25%, status post AICD NSTEMI, likely type II Hypertension Advanced dementia Type 2 diabetes Prostate cancer s/p radiation Hospital Course: 89-year-old with history of atrial fibrillation, breast cancer s/p radiation, HFrEF 20 to 25% status post AICD, dementia, recurrent UTIs, diabetes, hypertension, hyperlipidemia presenting with shortness of breath. In the ED, temperature was 98.2, pulse 79, respiratory rate 18, blood pressure 112/78, saturating 100% on BiPAP. WBC 21.1, hemoglobin 12.8, sodium 134, potassium 4.7, bicarb 15, anion gap 16, creatinine 1.03, magnesium 1.4, glucose 322, total bili 0.6, AST 39, ALT 28, ALP 76, troponin 0.091, proBNP 3400. EKG independently interpreted shows poorly paced rhythm, right bundle branch block nonspecific ST- T wave changes. Chest x-ray independently interpreted, shows no major opacities. Patient being admitted for acute hypoxic respiratory failure, possible aspiration pneumonitis and CHF exacerbation. Patient was already comfort care measures only. She was taken off of BiPAP continue to have thick upper respiratory secretions. Daughter at bedside. Patient on 11/19/2024 at 1126. Plan - Discharge Summary Discharge Rx Participant: No New Discharge Prescriptions: No Action Metoprolol Succinate [Toprol XL] 25 mg PO DAILY@0800 Spironolactone [Aldactone] 12.5 mg PO DAILY@0800 Furosemide [Lasix] 20 mg PO DAILY@0800 Escitalopram [Lexapro] 5 mg PO DAILY@0800 Docusate [Colace] 100 mg PO DAILY@0800 Carbamide Peroxide [Debrox Otic] 5 drops RIGHT EAR BID@0800,1999 valACYclovir HCL [Valtrex] 1,000 mg PO DAILY@0800 Acetaminophen Tab [Tylenol] 500 mg PO TID@0800,1400,1999 guaiFENesin-DM 100-10MG/5ML [Robitussin DM] 20 ml PO Q4H PRN PRN Reason: Cough Colesevelam [Welchol] 1,875 mg PO BID@799,1999 Calcium Carbonate/Vitamin D3 [Calcium 600 mg-Vit D3 10 mcg (400 Unit)] 1 tab PO BID@ Loperamide HCl [Imodium A-D] 2 mg PO BID PRN PRN Reason: Diarrhea Discharge Medication List Metoprolol Succinate [Toprol XL] 25 mg PO DAILY@0805/28/14 [History] Acetaminophen Tab [Tylenol] 500 mg PO TID@0800,1399,199902/22/24 [History] Escitalopram [Lexapro] 5 mg PO DAILY@79902/22/24 [History] Furosemide [Lasix] 20 mg PO DAILY@79902/22/24 [History] Spironolactone [Aldactone] 12.5 mg PO DAILY@79902/22/24 [History] valACYclovir HCL [Valtrex] 1,000 mg PO DAILY@79902/22/24 [History] Docusate [Colace] 100 mg PO DAILY@79908/07/24 [History] Calcium Carbonate/Vitamin D3 [Calcium 600 mg-Vit D3 10 mcg (400 Unit)] 1 tab PO BID@799,199911/19/24 [History] Carbamide Peroxide [Debrox Otic] 5 drops RIGHT EAR BID@799,199911/19/24 [History] Colesevelam [Welchol] 1,875 mg PO BID@799,199911/19/24 [History] Loperamide HCl [Imodium A-D] 2 mg PO BID PRN 11/19/24 [History] guaiFENesin-DM 100-10MG/5ML [Robitussin DM] 20 ml PO Q4H PRN 11/19/24 [History] Follow up Appointment(s)/Referral(s): Negro Fisher MD [Primary Care Provider] - 1-2 days
[2024-11-19] MEDS ORDERED: ACETAMINOPHEN TAB 500 MG TAB PO SCH (14:00)
[2024-11-19] MEDS ORDERED: COLESEVELAM 625 MG TAB PO SCH (20:00)
[2024-11-19] MEDS ORDERED: CARBAMIDE PEROXIDE 6.5% DROPS 15 ML BTL RIGHT EAR SCH (20:00)
[2024-11-20] MEDS ORDERED: ESCITALOPRAM 5 MG TAB PO SCH (08:00)
[2024-11-20] MEDS ORDERED: METOPROLOL SUCCINATE (ER) 25 MG TAB.ER.24H PO SCH (08:00)
[2024-11-20] MEDS ORDERED: valACYclovir HCL 1,000 MG TABLET PO SCH (08:00)
[2024-11-20] MEDS ORDERED: SPIRONOLACTONE 25 MG TAB PO SCH (08:00)
[2024-11-20] MEDS ORDERED: FUROSEMIDE 20 MG TAB PO SCH (08:00)
--- NOTE | 2024-11-21 15:23 | CDI ---
Documentation Clarification Form Date: 11/21/2024 02:53:41 PM From: Becca Vazquez RN, CCDS Email: [email or web address] Admit Date: 11/19/2024 12:49:00 AM Patient Name: Jagruti Muse Visit Number: [id number] Discharge Date: 11/19/2024 01:03:00 PM ATTENTION: The Clinical Documentation Specialists (CDI) and [facility] Coding Staff appreciate your assistance in clarifying documentation. Please respond to the clarification below the line at the bottom and electronically sign. The CDI & [facility] Coding staff will review the response and follow-up if needed. Please note: Queries are made part of the Legal Health Record. If you have any questions, please contact the author of this message via ITS. Doctor Jose Rafael Rodriguez The patient had leukocytosis, tachycardia, tachypnea and suspected aspiration pneumonitis. Based on this information and the findings below, is there an additional diagnosis that is clinically appropriate for this patient? History/Risk Factors: Afib, breast Ca, CHF, dementia, recurrent UTI's, DM, HTN. Per EMS report, patient was picked up from [facility] home and was supposedly having hematemesis, possibly aspirated. Admitted with acute hypoxic respiratory failure, suspected aspiration pneumonitis and leukocytosis." Clinical Indicators: 11/18 WBC 21.1; Troponin 0.091; CO2 15 11/18 Vital signs: Temp 99.1 HR 105 RR 30 BP 144/111 pox 91% 11/19 Vital signs: Temp 98.2 HR 90 RR 22 BP 82/63 Dsicharge summary: "Acute hypoxic respiratory failure. Suspected aspiration pneumonitis. Leukocytosis, reactive. Mild systolic CHF exacerbation 20 to 25%, status post AICD. NSTEMI, likely type II." Treatment: Antibiotics: IV Azithromycin 500mg x1 on 11/19; IV Rocephin 2gm x1 on 11/19 IV Bolus: 1L LR IV bolus x1 on 11/19; 1L 0.9 NS IV bolus x1 on 11/19 Is there an additional diagnosis that is clinically appropriate for this patient? [ ] Sepsis, present on admission [ ] No additional diagnosis/not clinically significant [ ] Other, please specify [ ] Unable to determine SIRS Criteria: 2 or more of the following may indicate SIRS Temperature < 96.8F (36C) or > 101.0F (38.3C) Heart Rate > 90 bpm Respiratory Rate > 20 breaths/min or PaCO2 < 32 mmHg White Blood Cell Count > 12,000 or < 4,000 cells/mm3 or > 10% bands MTDD
== END 2024-11-19 13:03 | disposition expired ==
LOC: EC 23:04 → 5NMEDONC 11-19 00:49
PROVIDERS: ADMIT Student in an Organized Health Care Education/Training Program; ATTEND Student in an Organized Health Care Education/Training Program
PROC: 5A09357 Assistance with Respiratory Ventilation, Less than 24 Consecutive Hours, Continuous Positive Airway Pressure (ICD-10-PCS; principal; 2024-11-19)
DX: I11.0 Hypertensive heart disease with heart failure (principal); I50.23 Acute on chronic systolic (congestive) heart failure; I21.A1 Myocardial infarction type 2; J96.01 Acute respiratory failure with hypoxia; J69.0 Pneumonitis due to inhalation of food and vomit; E11.9 Type 2 diabetes mellitus without complications; F03.90 Unspecified dementia, unspecified severity, without behavioral disturbance, psychotic disturbance, mood disturbance, and anxiety; I48.91 Unspecified atrial fibrillation; Z51.5 Encounter for palliative care; Z66 Do not resuscitate; I45.10 Unspecified right bundle-branch block; E78.5 Hyperlipidemia, unspecified; H40.9 Unspecified glaucoma; M19.90 Unspecified osteoarthritis, unspecified site; Z74.01 Bed confinement status; Z79.899 Other long term (current) drug therapy; Z95.810 Presence of automatic (implantable) cardiac defibrillator; Z92.3 Personal history of irradiation; Z87.440 Personal history of urinary (tract) infections; Z85.3 Personal history of malignant neoplasm of breast
CPT/HCPCS: 36415; 71045; 80053; 83735; 83880; 84484; 85025; 85610; 85730; 87040; 93005; 94640; 94660; 96361; 96365; 96366; 96368; 96375; 99291